=== PATIENT | female | born 1935 | race Caucasian/White ===

== ENCOUNTER 2019-08-26 22:00 | Inpatient (IN) ==
--- NOTE | 2019-08-26 23:03 | DR.GENAD ---
HPI Time Seen Time Seen by Provider: 08/26/19 22:50 PCP Primary Care Physician: Ryan HPI Comment HPI Comment: 83 y/o w/multiple med problems including copd and chf with worsening sob over several weeks as well as swelling in both legs; normally able to ambulate to her wheelchair but tonight started having problems lifting her feet and cannot seem to stand on them at this time; she has home oxygen but does not wear it all the time; she denies cp/palpitations/wheezing/fever and chills; also with constipation x 3-4 days; she was trying to have a bm and fell after getting up from toilet; no abd pain, nausea or vomiting Nurses notes reviewed Nurses Notes Review: Yes PMH PMH Past Surgical History: Yes ROS Review of Systems Constitutional: See HPI and Weakness Eyes: No Symptoms Reported ENTM: No Symptoms Reported Respiratoy: See HPI and Short of Breath Cardiovascular: See HPI and Edema Gastrointestinal/Abdominal: No Symptoms Reported Genitourinary: No Symptoms Reported Neurological: No Symptoms Reported Musculoskeletal: Joint Pain, Joint Swelling and Leg Integumentary: Change in Color (bilateral shins) Hematologic/Lymphatic: No Symptoms Reported (no blood clots) Endocrine: No Symptoms Reported Psychiatric: No Symptoms Reported PE Vital Signs Vitals: Temperature 97.8 F Pulse Rate 90 Respiratory Rate 20 Blood Pressure 158/93 O2 Sat by Pulse Oximetry 91 General Limitations: No Limitations General Appearance: Alert Head Head Exam: Normal Inspection and Atraumatic Eyes Eye exam: Normal Appearance and PERRL ENT ENT Exam: Normal Exam Neck Neck Exam: Normal Inspection Chest Chest Inspection: Normal Inspection and Symmetric Chest Wall Rise Respiratory Respiratory Exam: Normal Lung Sounds Bilat Respiratory Exam: Bilateral: Clear to Auscultation Cardiovascular Cardiovascular Exam: Regular Rate and Normal Rhythm Abdominal Exam Abdominal Exam: Normal Inspection, Normal Bowel Sounds and Soft Extremities Extremities Exam: Edema (rt greater than lt) and Other (lower third of both shins hyperpigmented) Neurologic Neurological Exam: Alert and Oriented X3 Psychiatric Psychiatric Exam: Normal Affect and Normal Mood Skin Skin Exam: Erythema (lower third of shins) COURSE Consultation Consultation Comments: IMPRESSION: 1. No PTE identified. 2. Multifocal ground-glass opacities within bilateral upper lobes, lingula and left lower lobe consistent with developing infiltrates/pneumonitis. 3. Small right-sided pleural effusion. 4. Cardiomegaly. 5. An approximate 5 cm myelolipoma. ROR Labs Reviewed Laboratory Results Reviewed?: Yes Result Diagrams: 08/26/19 23:15 08/26/19 23:15 Laboratory: WBC 7.6 X10^3/uL (3.6-10.0) 08/26/19 23:15 RBC 4.24 X10^6/uL (3.5-5.4) 08/26/19 23:15 Hgb 10.2 g/dL (12.0-16.0) L 08/26/19 23:15 Hct 32.9 % (36.0-47.0) L 08/26/19 23:15 MCV 77.6 fL (80.0-100.0) L 08/26/19 23:15 MCH 24.0 pg (27.0-34.0) L 08/26/19 23:15 MCHC 30.9 g/dL (33.0-35.0) L 08/26/19 23:15 RDW 18.1 % (11.6-16.5) H 08/26/19 23:15 Plt Count 322 X10^3/uL (150.0-450.0) 08/26/19 23:15 Plt Count Comment Adequate (ADEQUATE) 08/26/19 23:15 MPV 8.5 fL (7.4-11.0) 08/26/19 23:15 Neut % (Auto) 79.8 % (42.0-75.0) H 08/26/19 23:15 Lymph % (Auto) 8.3 % (21.0-51.0) L 08/26/19 23:15 Wilkes % (Auto) 9.7 % (0.0-13.0) 08/26/19 23:15 Eos % (Auto) 0.7 % (0.9-2.9) L 08/26/19 23:15 Baso % (Auto) 1.5 % (0.2-1.0) H 08/26/19 23:15 Neut # (Auto) 6.0 x10^3/uL (2.2-4.8) H 08/26/19 23:15 Lymph # (Auto) 0.6 X10^3/uL (1.3-2.9) L 08/26/19 23:15 Wilkes # (Auto) 0.7 x10^3/uL (0.3-0.8) 08/26/19 23:15 Eos # (Auto) 0.1 x10^3/uL (0.0-0.2) 08/26/19 23:15 Baso # (Auto) 0.1 X10^3/uL (0.0-0.1) 08/26/19 23:15 Absolute Nucleated RBC 0.3 /100WBC 08/26/19 23:15 Plt Morphology Comment Normal (NORMAL) 08/26/19 23:15 RBC Morphology Normal (NORMAL) 08/26/19 23:15 D-Dimer 833 ng/mL (0-400) H* 08/26/19 23:15 Sample Site Rr 08/26/19 22:57 ABG pH 7.440 (7.35-7.45) 08/26/19 22:57 ABG pCO2 45.0 mmHg (35.0-45.0) 08/26/19 22:57 ABG pO2 57.0 mmHg (80.0-100.0) L 08/26/19 22:57 ABG HCO3 30.6 mmol/L (22-26) H* 08/26/19 22:57 ABG O2 Saturation 90.0 % (90-100) 08/26/19 22:57 ABG Base Excess 5.6 mmol/L (-2.0-2.0) H 08/26/19 22:57 Dennis Test P 08/26/19 22:57 A-a Gradient 86.0 mmHg 08/26/19 22:57 FiO2 28.0 08/26/19 22:57 Blood Gas Comments Mirtha well 08/26/19 22:57 Sodium 145 mmol/L (136-145) 08/26/19 23:15 Corrected Sodium 146 mmol/L (136-145) H 08/26/19 23:15 Potassium 3.5 mmol/L (3.5-5.1) 08/26/19 23:15 Chloride 106 mmol/L (98-107) 08/26/19 23:15 Carbon Dioxide 29.7 mmol/L (21-32) 08/26/19 23:15 BUN 21 mg/dL (7-18) H 08/26/19 23:15 Creatinine 0.89 mg/dL (0.55-1.02) 08/26/19 23:15 Est GFR (MDRD) Af Amer > 60 (>60) 08/26/19 23:15 Est GFR (MDRD) Non-Af > 60 (>60) 08/26/19 23:15 Glucose 122 mg/dL (65-99) H 08/26/19 23:15 Calcium 8.8 mg/dL (8.5-10.1) 08/26/19 23:15 Corrected Calcium 9.5 mg/dL (8.5-10.1) 08/26/19 23:15 Total Bilirubin 0.40 mg/dL (0.2-1.0) 08/26/19 23:15 AST 21 Units/L (15-37) 08/26/19 23:15 ALT 19 Units/L (12-78) 08/26/19 23:15 Alkaline Phosphatase 109 Units/L (46-116) 08/26/19 23:15 Creatine Kinase 37 Units/L (26-192) 08/26/19 23:15 CK-MB (CK-2) < 1.0 ng/mL (0-4.0) 08/26/19 23:15 CK/CKMB % Calc 2.7 % (<4) 08/26/19 23:15 Troponin I < 0.02 ng/mL (0-1.5) 08/26/19 23:15 Total Protein 6.3 g/dL (6.4-8.2) L 08/26/19 23:15 Albumin 3.1 g/dL (3.4-5.0) L 08/26/19 23:15 Globulin 3.2 g/dL (2.5-4.5) 08/26/19 23:15 Albumin/Globulin Ratio 1.0 Ratio (1.1-2.1) L 08/26/19 23:15 Other Results Comments: Impression: Cardiomegaly with chronic interstitial lung changes along with low lung volume loss and scarring within the right upper lobe suspicious for fibrosis and or sequela prior partial lobectomy for which clinical correlation is needed. Small right-sided pleural effusion and/or scarring. IMPRESSION: 1. Negative for bilateral lower extremity DVT. [id number] 1935 Sex: F Location: ER Order Number(s): [id number] Procedure(s):CTA, CHEST Ordering Physician: Enma Burleson Primary Care: Rex Davis Service Date: 08/27/19 Service Time: 22 CTA chest with contrast per pulmonary embolism protocol Indication: Leg swelling Comparison: None available Technique: Multiple axial images of the chest were obtained from the thoracic inlet to the upper abdomen after the administration of IV contrast.Coronal and Sagittal MIP images were also provided. Dose reduction techniques including automated exposure control (AEC) and adjustment of mA and kV were utilized. Findings: No central or segmental pulmonary arterial filling defect is identified. There is normal caliber of the pulmonary artery without CT evidence or right heart strain. Heart size is enlarged with moderate dilatation of the right atrium and ventricle. Mild calcified atherosclerotic disease of coronary arteries. The thoracic aorta is normal in caliber and configuration. No enlarged mediastinal or hilar lymphadenopathy. Shotty paratracheal lymph nodes are noted. Ground-glass opacities within bilateral upper lobes, lingula and left lower lobe. There is a small right-sided pleural effusion. Central airways are clear. No pulmonary nodule or mass Moderate amount of free fluid within the abdomen. There is a fat containing lesion within the left adrenal gland consistent with a myelolipoma measuring approximately 5 cm. No acute osseous abnormality. IMPRESSION: 1. No PTE identified. 2. Multifocal ground-glass opacities within bilateral upper lobes, lingula and left lower lobe consistent with developing infiltrates/pneumonitis. 3. Small right-sided pleural effusion. 4. Cardiomegaly. 5. An approximate 5 cm myelolipoma. XRAY XRAY Interpreted by: Radiologist Opioid Opioid Risk Tool Age ([place] if 16-45): No History of Preadolescent Sexual Abuse: No Total: 0 Total Score Risk Category: Low Risk Copyright: [facility] predicting aberrant behaviors Diagnosis Discharge Problem: Hypoxia, Leg edema CHF exacerbation Qualifiers: Heart failure type: unspecified Qualified Code(s): I50.9 - Heart failure, unspecified Dyspnea Qualifiers: Dyspnea type: shortness of breath Qualified Code(s): R06.02 - Shortness of breath Instructions Instructions: Shortness of Breath, Adult, [id number] Heart Failure Forms: Excuse From Work Patient Portal
[2019-08-26 23:12] LABS: ABG BASE EXCESS 5.6 mmol/L (-2.0-2.0)
[2019-08-26 23:13] LABS: ABG ALLEN TEST P; ABG HCO3 30.6 mmol/L (22-26)
[2019-08-26 23:30] LABS: BASOPHILS # (AUTO) 0.1 X10^3/uL (0.0-0.1); BASOPHILS % (AUTO) 1.5 % (0.2-1.0); EOSINOPHILS # (AUTO) 0.1 x10^3/uL (0.0-0.2); EOSINOPHILS % (AUTO) 0.7 % (0.9-2.9); HEMATOCRIT 32.9 % (36.0-47.0); HEMOGLOBIN 10.2 g/dL (12.0-16.0); LYMPHOCYTES # (AUTO) 0.6 X10^3/uL (1.3-2.9); LYMPHOCYTES % (AUTO) 8.3 % (21.0-51.0); MEAN CORPUSCULAR HGB CONC 30.9 g/dL (33.0-35.0); MEAN CORPUSCULAR VOLUME 77.6 fL (80.0-100.0); MEAN PLATELET VOLUME 8.5 fL (7.4-11.0); MONOCYTES # (AUTO) 0.7 x10^3/uL (0.3-0.8); MONOCYTES % (AUTO) 9.7 % (0.0-13.0); NEUTROPHILS % (AUTO) 79.8 % (42.0-75.0); PLATELET COUNT 322 X10^3/uL (150.0-450.0); RED BLOOD COUNT 4.24 X10^6/uL (3.5-5.4); RED CELL DISTRIBUTION WIDTH 18.1 % (11.6-16.5); WHITE BLOOD COUNT 7.6 X10^3/uL (3.6-10.0)
[2019-08-26 23:37] LABS: PLATELET MORPHOLOGY COMMENT NORMAL (NORMAL)
[2019-08-26 23:45] LABS: BLOOD UREA NITROGEN 21 mg/dL (7-18); CALCIUM 8.8 mg/dL (8.5-10.1); CARBON DIOXIDE 29.7 mmol/L (21-32); CHLORIDE 106 mmol/L (98-107); COR NA(FOR HYPERGLY) 146 mmol/L (136-145); CREATININE 0.89 mg/dL (0.55-1.02); SODIUM 145 mmol/L (136-145); TROPONIN I < 0.02 ng/mL (0-1.5); eGFR NON BLACK RACES > 60 (>60)
[2019-08-26 23:49] LABS: ALANINE AMINOTRANSFERASE 19 Units/L (12-78); ALBUMIN 3.1 g/dL (3.4-5.0); ALKALINE PHOSPHATASE 109 Units/L (46-116); ASPARTATE AMINO TRANSFERASE 21 Units/L (15-37); CKMB % 2.7 % (<4); COR CA(FOR HYPOALB) 9.5 mg/dL (8.5-10.1); CREATINE KINASE 37 Units/L (26-192); CREATINE KINASE MB < 1.0 ng/mL (0-4.0); TOTAL PROTEIN 6.3 g/dL (6.4-8.2)
[2019-08-27] MEDS ORDERED: LASIX IVP ONE ×2 (00:27→00:33)
--- NOTE | 2019-08-27 00:28 | VAS ---
Lower extremity doppler sonogram Indication:Leg pain Comparison: None available TECHNIQUE: Multiple mccall scale and color flow Doppler images of the deep venous system were obtained of the right and left lower extremity. FINDINGS: The deep venous system of the right and left lower extremities were evaluated from the level of the common femoral vein through the popliteal vein. Normal color flow and augmentation can be observed. In addition, normal compression is seen throughout the deep venous system. IMPRESSION: 1. Negative for bilateral lower extremity DVT. Reported By:
--- NOTE | 2019-08-27 00:35 | RAD ---
AP Chest Indication: Fall with buttock pain and bilateral lower extremity swelling Comparison:None available Findings: The trachea is midline. Heart size is enlarged. Chronic interstitial lung changes are noted. There is scarring and volume loss within the right upper lobe suggesting pulmonary fibrosis and or prior partial lobectomy changes. There is scarring of the right minor fissure. Small right-sided pleural effusion and or pleural parenchymal scarring. No acute osseous abnormality. Impression: Cardiomegaly with chronic interstitial lung changes along with low lung volume loss and scarring within the right upper lobe suspicious for fibrosis and or sequela prior partial lobectomy for which clinical correlation is needed. Small right-sided pleural effusion and/or scarring. Reported By:
--- NOTE | 2019-08-27 03:04 | CT ---
CTA chest with contrast per pulmonary embolism protocol Indication: Leg swelling Comparison: None available Technique: Multiple axial images of the chest were obtained from the thoracic inlet to the upper abdomen after the administration of IV contrast.Coronal and Sagittal MIP images were also provided. Dose reduction techniques including automated exposure control (AEC) and adjustment of mA and kV were utilized. Findings: No central or segmental pulmonary arterial filling defect is identified. There is normal caliber of the pulmonary artery without CT evidence or right heart strain. Heart size is enlarged with moderate dilatation of the right atrium and ventricle. Mild calcified atherosclerotic disease of coronary arteries. The thoracic aorta is normal in caliber and configuration. No enlarged mediastinal or hilar lymphadenopathy. Shotty paratracheal lymph nodes are noted. Ground-glass opacities within bilateral upper lobes, lingula and left lower lobe. There is a small right-sided pleural effusion. Central airways are clear. No pulmonary nodule or mass Moderate amount of free fluid within the abdomen. There is a fat containing lesion within the left adrenal gland consistent with a myelolipoma measuring approximately 5 cm. No acute osseous abnormality. IMPRESSION: 1. No PTE identified. 2. Multifocal ground-glass opacities within bilateral upper lobes, lingula and left lower lobe consistent with developing infiltrates/pneumonitis. 3. Small right-sided pleural effusion. 4. Cardiomegaly. 5. An approximate 5 cm myelolipoma. Reported By:
[2019-08-27] MEDS ORDERED: TYLENOL 325 MG TAB PO PRN (05:00)
[2019-08-27] MEDS ORDERED: ZOFRAN TAB 4 MG PO PRN (05:00)
[2019-08-27 06:00] LABS: BASOPHILS # (AUTO) 0.1 X10^3/uL (0.0-0.1); BASOPHILS % (AUTO) 1.7 % (0.2-1.0); EOSINOPHILS # (AUTO) 0.1 x10^3/uL (0.0-0.2); EOSINOPHILS % (AUTO) 0.8 % (0.9-2.9); HEMATOCRIT 34.2 % (36.0-47.0); HEMOGLOBIN 10.7 g/dL (12.0-16.0); LYMPHOCYTES # (AUTO) 0.8 X10^3/uL (1.3-2.9); MEAN CORPUSCULAR HEMOGLOBIN 23.9 pg (27.0-34.0); MEAN CORPUSCULAR HGB CONC 31.3 g/dL (33.0-35.0); MEAN CORPUSCULAR VOLUME 76.5 fL (80.0-100.0); MEAN PLATELET VOLUME 8.1 fL (7.4-11.0); MONOCYTES # (AUTO) 0.9 x10^3/uL (0.3-0.8); MONOCYTES % (AUTO) 11.5 % (0.0-13.0); NEUTROPHILS # (AUTO) 5.7 x10^3/uL (2.2-4.8); PLATELET COUNT 314 X10^3/uL (150.0-450.0); RED BLOOD COUNT 4.47 X10^6/uL (3.5-5.4); RED CELL DISTRIBUTION WIDTH 18.1 % (11.6-16.5); WHITE BLOOD COUNT 7.6 X10^3/uL (3.6-10.0)
[2019-08-27 06:13] VITALS: BMI 43.5
[2019-08-27 06:17] LABS: ALANINE AMINOTRANSFERASE 19 Units/L (12-78); ALBUMIN 3.3 g/dL (3.4-5.0); ALKALINE PHOSPHATASE 118 Units/L (46-116); ASPARTATE AMINO TRANSFERASE 28 Units/L (15-37); BLOOD UREA NITROGEN 17 mg/dL (7-18); CALCIUM 9.1 mg/dL (8.5-10.1); CARBON DIOXIDE 33.1 mmol/L (21-32); CHLORIDE 104 mmol/L (98-107); CKMB % 2.3 % (<4); COR CA(FOR HYPOALB) 9.7 mg/dL (8.5-10.1); COR NA(FOR HYPERGLY) 146 mmol/L (136-145); CREATINE KINASE 62 Units/L (26-192); CREATINE KINASE MB 1.4 ng/mL (0-4.0); CREATININE 0.97 mg/dL (0.55-1.02); SODIUM 145 mmol/L (136-145); TOTAL PROTEIN 6.8 g/dL (6.4-8.2); TROPONIN I < 0.02 ng/mL (0-1.5); eGFR NON BLACK RACES 59 (>60)
[2019-08-27 06:22] LABS: HYPOCHROMASIA 1+; PLATELET MORPHOLOGY COMMENT NORMAL (NORMAL)
[2019-08-27] MEDS ORDERED: POTASSIUM CHLORIDE LIQ 20 MEQ UDC PO PRN (07:13)
[2019-08-27] MEDS ORDERED: K-RIDER 10 MEQ/NS 100 ML 10 MEQ/100 ML BAG IV PRN (07:13)
[2019-08-27] MEDS ORDERED: KLOR-CON PO PRN (07:13)
[2019-08-27] MEDS ORDERED: POTASSIUM CHL 40 MEQ/NS 0.45% 500 ML IV PRN (07:13)
[2019-08-27] MEDS ORDERED: MICRO K EXTEN CAP 10 MEQ PO PRN (07:13)
[2019-08-27] MEDS ORDERED: POTASSIUM CHL 60 MEQ/NS 0.45% 500 ML IV PRN (07:13)
[2019-08-27] MEDS ORDERED: MILK OF MAGNESIA PO PRN (09:04)
[2019-08-27] MEDS ORDERED: COLACE CAP 100 MG PO PRN (09:04)
[2019-08-27] MEDS: LASIX IVP SCH (09:27)
[2019-08-27] MEDS: NYSTATIN POWDER TOP SCH ×2 (09:43→21:18)
[2019-08-27] MEDS: K-DUR TAB 20 MEQ PO PRN ×3 (09:43→15:19)
[2019-08-27] MEDS: MAGNESIUM SULFATE 1 GRAM/100 mL PREMIX 1 GM/100 ML BAG IV PRN ×2 (09:46→10:43)
[2019-08-27 11:51] LABS: BILIRUBIN,URINE NEGATIVE (NEGATIVE); BLOOD/HEMOGLOBIN,URINE NEGATIVE (NEGATIVE); GLUCOSE, URINE NEGATIVE (NEGATIVE); KETONES,URINE NEGATIVE (NEGATIVE); LEUKOCYTE ESTERASE ,URINE NEGATIVE (NEGATIVE); NITRITES,URINE NEGATIVE (NEGATIVE); PROTEIN,URINE NEGATIVE (NEGATIVE); UROBILINOGEN,URINE NORMAL (NORMAL)
[2019-08-27 11:52] LABS: APPEARANCE,URINE CLEAR (CLEAR); COLOR,URINE PALE YELLOW (YELLOW)
[2019-08-27] MEDS: LOVENOX INJ 40 MG SYR SC SCH (12:03)
[2019-08-27 12:14] LABS: CKMB % 2.2 % (<4); CREATINE KINASE 88 Units/L (26-192); CREATINE KINASE MB 1.9 ng/mL (0-4.0); TROPONIN I < 0.02 ng/mL (0-1.5)
[2019-08-27] MEDS ORDERED: LEVAQUIN PREMIX IV 750 MG 750 MG/150 ML BAG IV SCH (13:00)
[2019-08-27 13:38] LABS: BASOPHILS # (AUTO) 0.1 X10^3/uL (0.0-0.1); BASOPHILS % (AUTO) 1.1 % (0.2-1.0); EOSINOPHILS # (AUTO) 0.1 x10^3/uL (0.0-0.2); EOSINOPHILS % (AUTO) 0.6 % (0.9-2.9); HEMATOCRIT 34.8 % (36.0-47.0); HEMOGLOBIN 10.7 g/dL (12.0-16.0); LYMPHOCYTES # (AUTO) 0.7 X10^3/uL (1.3-2.9); LYMPHOCYTES % (AUTO) 8.6 % (21.0-51.0); MEAN CORPUSCULAR HEMOGLOBIN 23.7 pg (27.0-34.0); MEAN CORPUSCULAR HGB CONC 30.8 g/dL (33.0-35.0); MEAN CORPUSCULAR VOLUME 77.1 fL (80.0-100.0); MEAN PLATELET VOLUME 8.2 fL (7.4-11.0); MONOCYTES # (AUTO) 0.8 x10^3/uL (0.3-0.8); MONOCYTES % (AUTO) 9.3 % (0.0-13.0); NEUTROPHILS # (AUTO) 6.8 x10^3/uL (2.2-4.8); NEUTROPHILS % (AUTO) 80.4 % (42.0-75.0); PLATELET COUNT 396 X10^3/uL (150.0-450.0); RED BLOOD COUNT 4.51 X10^6/uL (3.5-5.4); WHITE BLOOD COUNT 8.5 X10^3/uL (3.6-10.0)
[2019-08-27 13:48] LABS: ALANINE AMINOTRANSFERASE 27 Units/L (12-78); ALBUMIN 3.4 g/dL (3.4-5.0); ALKALINE PHOSPHATASE 128 Units/L (46-116); ASPARTATE AMINO TRANSFERASE 28 Units/L (15-37); BLOOD UREA NITROGEN 16 mg/dL (7-18); CALCIUM 9.1 mg/dL (8.5-10.1); CARBON DIOXIDE 35.6 mmol/L (21-32); CHLORIDE 104 mmol/L (98-107); COR NA(FOR HYPERGLY) 145 mmol/L (136-145); SODIUM 145 mmol/L (136-145); TOTAL PROTEIN 6.9 g/dL (6.4-8.2); eGFR NON BLACK RACES 51 (>60)
[2019-08-27] MEDS ORDERED: NS 500 ML IV 500 ML IV ONE (13:50)
[2019-08-27 13:54] LABS: PLATELET MORPHOLOGY COMMENT NORMAL (NORMAL)
[2019-08-27 13:55] LABS: HYPOCHROMASIA SLIGHT
[2019-08-27] MEDS: NS 500 ML IV 500 ML IV PRN (14:01)
[2019-08-27] MEDS: SOLU-Medrol 125 MG VIAL IVP SCH ×2 (14:26→21:19)
[2019-08-27 14:59] LABS: ABG BASE EXCESS 10.7 mmol/L (-2.0-2.0)
[2019-08-27 15:01] LABS: ABG HCO3 35.7 mmol/L (22-26)
[2019-08-27] MEDS: ZOSYN VIAL 3.375 GRAMS 3.375 G in NS 100 ML IV + SPIKE MINIBAG* 100 ML IV SCH ×2 (15:37→21:20)
[2019-08-27] MEDS ORDERED: SALINE 3% 15 ML NEB TX NEB ONE (17:07)
[2019-08-28] MEDS: ZOSYN VIAL 3.375 GRAMS 3.375 G in NS 100 ML IV + SPIKE MINIBAG* 100 ML IV SCH ×3 (05:56→21:00)
[2019-08-28] MEDS: SOLU-Medrol 125 MG VIAL IVP SCH ×3 (05:57→21:00)
[2019-08-28 06:13] LABS: BASOPHILS % (AUTO) 0.2 % (0.2-1.0); HEMATOCRIT 30.8 % (36.0-47.0); HEMOGLOBIN 9.6 g/dL (12.0-16.0); LYMPHOCYTES # (AUTO) 0.3 X10^3/uL (1.3-2.9); LYMPHOCYTES % (AUTO) 5.9 % (21.0-51.0); MEAN CORPUSCULAR HEMOGLOBIN 24.5 pg (27.0-34.0); MEAN CORPUSCULAR HGB CONC 31.1 g/dL (33.0-35.0); MEAN CORPUSCULAR VOLUME 78.6 fL (80.0-100.0); MEAN PLATELET VOLUME 8.5 fL (7.4-11.0); MONOCYTES # (AUTO) 0.1 x10^3/uL (0.3-0.8); MONOCYTES % (AUTO) 1.4 % (0.0-13.0); NEUTROPHILS # (AUTO) 4.6 x10^3/uL (2.2-4.8); NEUTROPHILS % (AUTO) 92.5 % (42.0-75.0); PLATELET COUNT 313 X10^3/uL (150.0-450.0); RED BLOOD COUNT 3.91 X10^6/uL (3.5-5.4); RED CELL DISTRIBUTION WIDTH 17.6 % (11.6-16.5); WHITE BLOOD COUNT 4.9 X10^3/uL (3.6-10.0)
[2019-08-28 06:27] LABS: ALANINE AMINOTRANSFERASE 23 Units/L (12-78); ALKALINE PHOSPHATASE 106 Units/L (46-116); ASPARTATE AMINO TRANSFERASE 26 Units/L (15-37); BLOOD UREA NITROGEN 14 mg/dL (7-18); CHLORIDE 106 mmol/L (98-107); COR CA(FOR HYPOALB) 9.8 mg/dL (8.5-10.1); COR NA(FOR HYPERGLY) 145 mmol/L (136-145); CREATININE 0.79 mg/dL (0.55-1.02); SODIUM 143 mmol/L (136-145); TOTAL PROTEIN 6.2 g/dL (6.4-8.2); eGFR NON BLACK RACES > 60 (>60)
[2019-08-28 06:53] LABS: PLATELET MORPHOLOGY COMMENT NORMAL (NORMAL)
[2019-08-28 06:54] LABS: ANISOCYTOSIS SLIGHT; HYPOCHROMASIA SLIGHT
--- NOTE | 2019-08-28 08:05 | RAD ---
HISTORY: Shortness breath.Study: Portable chest.Comparison: Chest x-ray dated August 27, 2019. Findings:The patient is rotated. The cardiac silhouette is stably enlarged without overt signs of failure. Chronic emphysematous changes. No obvious focal consolidation, pleural effusion, or pneumothorax. The bony thorax is unremarkable. IMPRESSION: No significant change.Reported By:
[2019-08-28] MEDS: LOVENOX INJ 40 MG SYR SC SCH (08:18)
[2019-08-28] MEDS: LASIX IVP SCH (08:19)
[2019-08-28] MEDS: NYSTATIN POWDER TOP SCH ×2 (08:19→21:00)
[2019-08-28] MEDS ORDERED: XANAX PO PRN (11:59)
--- NOTE | 2019-08-28 12:16 | PCM.PROG ---
Progress Note Progress Note for Day of Date of Exam: 08/28/19 Subjective Subjective: Patient seen at bedside, reports still having SOB. She is admitted for acute exacerbation of CHF and pneumonitis. She states Berny has been helping with her leg edema. She is currently on 2L oxygen, sats in 90s. Past Medical Family Social History Past Med/Fam/Surg Hx: No changes since H&P Allergies: Allergies ibuprofen Allergy (Verified 08/26/19 22:47) Review of Systems ROS: No change since H&P Vital Signs and I&O's Vital Signs: Temperature 98.2 F Pulse Rate [Left Brachial] 118 Pulse Rate 97 Respiratory Rate 26 Blood Pressure [Left Arm] 132/79 Blood Pressure [Right Arm] 126/65 Blood Pressure 126/65 O2 Sat by Pulse Oximetry 91 Intake and Output: Intake & Output 08/25/19 08/26/19 08/27/19 08/28/19 23:59 23:59 23:59 23:59 Intake Total 1501 / 1501 565 / 565 Output Total 1800 / 1800 400 / 400 Balance -299 / -299 165 / 165 Physical Exam Oriented: Normal Eyes: Normal Respiratory: Generalized and Rales Cardiovascular: Normal and Edema (b/l LE edema ) Auscultation: Bowel Sounds: Normal Palpation: Other (abdominal distension due to edema ) Tenderness: Normal Skin: Normal Musculoskeletal: Normal Mood Description: Calm Affect: Normal Speech Pattern: Clear and Appropriate Laboratory and Diagnostics Result Diagrams: 08/28/19 05:15 08/28/19 05:15 Labs: Laboratory WBC 4.9 X10^3/uL (3.6-10.0) 08/28/19 05:15 RBC 3.91 X10^6/uL (3.5-5.4) 08/28/19 05:15 Hgb 9.6 g/dL (12.0-16.0) L 08/28/19 05:15 Hct 30.8 % (36.0-47.0) L 08/28/19 05:15 MCV 78.6 fL (80.0-100.0) L 08/28/19 05:15 MCH 24.5 pg (27.0-34.0) L 08/28/19 05:15 MCHC 31.1 g/dL (33.0-35.0) L 08/28/19 05:15 RDW 17.6 % (11.6-16.5) H 08/28/19 05:15 Plt Count 313 X10^3/uL (150.0-450.0) 08/28/19 05:15 Plt Count Comment Adequate (ADEQUATE) 08/28/19 05:15 MPV 8.5 fL (7.4-11.0) 08/28/19 05:15 Neut % (Auto) 92.5 % (42.0-75.0) H 08/28/19 05:15 Lymph % (Auto) 5.9 % (21.0-51.0) L 08/28/19 05:15 Flagler % (Auto) 1.4 % (0.0-13.0) 08/28/19 05:15 Eos % (Auto) 0.0 % (0.9-2.9) L 08/28/19 05:15 Baso % (Auto) 0.2 % (0.2-1.0) 08/28/19 05:15 Neut # (Auto) 4.6 x10^3/uL (2.2-4.8) 08/28/19 05:15 Lymph # (Auto) 0.3 X10^3/uL (1.3-2.9) L 08/28/19 05:15 [place] # (Auto) 0.1 x10^3/uL (0.3-0.8) L 08/28/19 05:15 Eos # (Auto) 0.0 x10^3/uL (0.0-0.2) 08/28/19 05:15 Baso # (Auto) 0.0 X10^3/uL (0.0-0.1) 08/28/19 05:15 Absolute Nucleated RBC 0.3 /100WBC 08/28/19 05:15 Total Counted 100 08/28/19 05:15 Neutrophils % (Manual) 94 % (39-76) H 08/28/19 05:15 Lymphocytes % (Manual) 4 % (13-43) L 08/28/19 05:15 Monocytes % (Manual) 2 % (4-9) L 08/28/19 05:15 Plt Morphology Comment Normal (NORMAL) 08/28/19 05:15 RBC Morphology Abnormal (NORMAL) A 08/28/19 05:15 Hypochromasia Slight A 08/28/19 05:15 Anisocytosis Slight A 08/28/19 05:15 ESR 6 MM/HOUR (0-20) 08/27/19 13:10 D-Dimer 833 ng/mL (0-400) H* 08/26/19 23:15 Sample Site Right brachial 08/27/19 14:52 ABG pH 7.480 (7.35-7.45) H 08/27/19 14:52 ABG pCO2 48.0 mmHg (35.0-45.0) H 08/27/19 14:52 ABG pO2 75.0 mmHg (80.0-100.0) L 08/27/19 14:52 ABG HCO3 35.7 mmol/L (22-26) H* 08/27/19 14:52 ABG O2 Saturation 96.0 % (90-100) 08/27/19 14:52 ABG Base Excess 10.7 mmol/L (-2.0-2.0) H 08/27/19 14:52 Dennis Test Na 08/27/19 14:52 A-a Gradient 65.0 mmHg 08/27/19 14:52 FiO2 28.0 08/27/19 14:52 Blood Gas Comments Mirtha well aw 08/27/19 14:52 Sodium 143 mmol/L (136-145) 08/28/19 05:15 Corrected Sodium 145 mmol/L (136-145) 08/28/19 05:15 Potassium 4.1 mmol/L (3.5-5.1) 08/28/19 05:15 Chloride 106 mmol/L (98-107) 08/28/19 05:15 Carbon Dioxide 32.0 mmol/L (21-32) 08/28/19 05:15 BUN 14 mg/dL (7-18) 08/28/19 05:15 Creatinine 0.79 mg/dL (0.55-1.02) 08/28/19 05:15 Est GFR (MDRD) Af Amer > 60 (>60) 08/28/19 05:15 Est GFR (MDRD) Non-Af > 60 (>60) 08/28/19 05:15 Glucose 186 mg/dL (65-99) H 08/28/19 05:15 POC Glucose (mg/dL) 225 mg/dL (65-99) H 08/28/19 11:49 Calcium 9.0 mg/dL (8.5-10.1) 08/28/19 05:15 Corrected Calcium 9.8 mg/dL (8.5-10.1) 08/28/19 05:15 Magnesium 1.8 mg/dL (1.7-2.9) 08/28/19 05:15 Total Bilirubin 0.50 mg/dL (0.2-1.0) 08/28/19 05:15 AST 26 Units/L (15-37) 08/28/19 05:15 ALT 23 Units/L (12-78) 08/28/19 05:15 Alkaline Phosphatase 106 Units/L (46-116) 08/28/19 05:15 Creatine Kinase 88 Units/L (26-192) 08/27/19 11:36 CK-MB (CK-2) 1.9 ng/mL (0-4.0) 08/27/19 11:36 CK/CKMB % Calc 2.2 % (<4) 08/27/19 11:36 Troponin I < 0.02 ng/mL (0-1.5) 08/27/19 11:36 B-Natriuretic Peptide 796 pg/mL (0-79) H* 08/27/19 13:10 Total Protein 6.2 g/dL (6.4-8.2) L 08/28/19 05:15 Albumin 3.0 g/dL (3.4-5.0) L 08/28/19 05:15 Globulin 3.2 g/dL (2.5-4.5) 08/28/19 05:15 Albumin/Globulin Ratio 0.9 Ratio (1.1-2.1) L 08/28/19 05:15 Specimen Type Clean catch urine 08/27/19 11:24 Urine Color Pale yellow (YELLOW) 08/27/19 11:24 Urine Appearance Clear (CLEAR) 08/27/19 11:24 Urine pH 7.0 (5.0 - 8.0) 08/27/19 11:24 Ur Specific Udell 1.015 (1.000-1.030) 08/27/19 11:24 Urine Protein Negative (NEGATIVE) 08/27/19 11:24 Urine Glucose (UA) Negative (NEGATIVE) 08/27/19 11:24 Urine Ketones Negative (NEGATIVE) 08/27/19 11:24 Urine Occult Blood Negative (NEGATIVE) 08/27/19 11:24 Urine Nitrite Negative (NEGATIVE) 08/27/19 11:24 Urine Bilirubin Negative (NEGATIVE) 08/27/19 11:24 Urine Urobilinogen Normal (NORMAL) 08/27/19 11:24 Ur Leukocyte Esterase Negative (NEGATIVE) 08/27/19 11:24 Radiology Reviewed: Yes Plan (1) CHF exacerbation: Status: Acute Qualifiers: Heart failure type: unspecified Qualified Code(s): I50.9 - Heart failure, unspecified Plan: ECHO: mild LVH, decreased global wall motion, EF 33%, severe TR. Severe pulmonary HTN, dilated IVC. No prev echo to compare. Continue diuresis with Lasix IV, wean oxygen as tolerated Resume home medications: asa, statin, losartan, metoprolol succinate Strict I/Os (2) Dyspnea: Status: Acute Qualifiers: Dyspnea type: shortness of breath Qualified Code(s): R06.02 - Shortness of breath; R06.00 - Dyspnea, unspecified; R06.01 - Orthopnea Plan: due to CHF exacerbation and pneumonitis D-dimer elevated, CT negative for PE. (3) Leg edema: Status: Acute Plan: improving, Doppler negative for DVT. Continue diuresis (4) Pneumonitis: Status: Acute Narrative Support Text: CT chest: Multifocal ground-glass opacities within bilateral upper lobes, lingula and left lower lobe consistent with developing infiltrates/pneumonitis. Plan: currently on Levaquin and Zosyn. EKG showing prolonged QTC, will DC Levaquin and switch to doxycycline for atypical coverage. Continue solumedrol, duonebs. (5) Atrial fibrillation: Status: Acute Qualifiers: Atrial fibrillation type: unspecified Qualified Code(s): I48.91 - Unspecified atrial fibrillation Plan: resume home meds: Amiodarone, metoprolol succinate, eliquis (6) Hypertension: Status: Acute Qualifiers: Hypertension type: essential hypertension Qualified Code(s): I10 - Essential (primary) hypertension Plan: resume home medications (7) Prolonged QT interval: Status: Acute Plan: DC levaquin, repeat EKG in the AM (8) Anemia: Status: Acute Qualifiers: Anemia type: unspecified type Qualified Code(s): D64.9 - Anemia, unspecified (9) Moderate to severe pulmonary hypertension: Status: Acute
[2019-08-28] MEDS: ASPIRIN PO SCH (13:24)
[2019-08-28] MEDS: CORDARONE TAB 200 MG PO SCH (13:25)
[2019-08-28] MEDS: ELIQUIS PO SCH ×2 (13:25→21:00)
[2019-08-28] MEDS: NORCO 10/325 TAB PO PRN ×2 (13:27→21:00)
[2019-08-28] MEDS: TOPROL XL PO SCH ×2 (13:27→21:00)
[2019-08-28] MEDS: ZOCOR TAB 40 MG PO SCH (21:00)
[2019-08-28] MEDS: VIBRAMYCIN PO SCH (21:00)
[2019-08-28] MEDS: COZAAR PO SCH (21:00)
[2019-08-28] MEDS: HumuLIN R SUBCUT PRN (21:30)
[2019-08-29] MEDS: SOLU-Medrol 125 MG VIAL IVP SCH ×3 (05:52→21:02)
[2019-08-29] MEDS: ZOSYN VIAL 3.375 GRAMS 3.375 G in NS 100 ML IV + SPIKE MINIBAG* 100 ML IV SCH ×3 (06:15→21:03)
[2019-08-29 06:36] LABS: BASOPHILS % (AUTO) 0.5 % (0.2-1.0); HEMOGLOBIN 9.4 g/dL (12.0-16.0); LYMPHOCYTES # (AUTO) 0.4 X10^3/uL (1.3-2.9); MEAN CORPUSCULAR HEMOGLOBIN 24.1 pg (27.0-34.0); MEAN CORPUSCULAR HGB CONC 31.3 g/dL (33.0-35.0); MEAN CORPUSCULAR VOLUME 77.1 fL (80.0-100.0); MEAN PLATELET VOLUME 8.7 fL (7.4-11.0); MONOCYTES # (AUTO) 0.3 x10^3/uL (0.3-0.8); MONOCYTES % (AUTO) 3.5 % (0.0-13.0); NEUTROPHILS # (AUTO) 8.5 x10^3/uL (2.2-4.8); PLATELET COUNT 359 X10^3/uL (150.0-450.0); RED BLOOD COUNT 3.89 X10^6/uL (3.5-5.4); RED CELL DISTRIBUTION WIDTH 17.7 % (11.6-16.5); WHITE BLOOD COUNT 9.2 X10^3/uL (3.6-10.0)
[2019-08-29 06:59] LABS: BAND NEUTROPHILS % 1 % (0-10); PLATELET MORPHOLOGY COMMENT NORMAL (NORMAL)
[2019-08-29 07:01] LABS: ANISOCYTOSIS SLIGHT; HYPOCHROMASIA SLIGHT
[2019-08-29 07:12] LABS: ALANINE AMINOTRANSFERASE 32 Units/L (12-78); ALKALINE PHOSPHATASE 94 Units/L (46-116); ASPARTATE AMINO TRANSFERASE 31 Units/L (15-37); BLOOD UREA NITROGEN 21 mg/dL (7-18); CALCIUM 9.1 mg/dL (8.5-10.1); CARBON DIOXIDE 34.2 mmol/L (21-32); CHLORIDE 106 mmol/L (98-107); COR CA(FOR HYPOALB) 9.9 mg/dL (8.5-10.1); COR NA(FOR HYPERGLY) 146 mmol/L (136-145); CREATININE 0.82 mg/dL (0.55-1.02); SODIUM 144 mmol/L (136-145); TOTAL PROTEIN 6.5 g/dL (6.4-8.2); eGFR NON BLACK RACES > 60 (>60)
[2019-08-29] MEDS: DEPAKOTE D.R. TAB PO SCH (08:47)
[2019-08-29] MEDS: PriLOSEC PO SCH (08:47)
[2019-08-29] MEDS: K-DUR TAB 20 MEQ PO PRN (08:47)
[2019-08-29] MEDS: TOPROL XL PO SCH ×2 (08:48→20:54)
[2019-08-29] MEDS: VIBRAMYCIN PO SCH ×2 (08:48→20:54)
[2019-08-29] MEDS: PROzac PO SCH (08:48)
[2019-08-29] MEDS: ASPIRIN PO SCH (08:48)
[2019-08-29] MEDS: ELIQUIS PO SCH ×2 (08:50→20:54)
[2019-08-29] MEDS: CORDARONE TAB 200 MG PO SCH (08:50)
[2019-08-29] MEDS: SINGULAIR TAB 10 MG PO SCH (08:50)
[2019-08-29] MEDS: NYSTATIN POWDER TOP SCH ×2 (08:51→20:55)
[2019-08-29] MEDS: LASIX IVP SCH (08:51)
[2019-08-29] MEDS: SYNTHROID 50 mcg TAB PO SCH (08:52)
[2019-08-29] MEDS ORDERED: LEVAQUIN PREMIX IV 750 MG 750 MG/150 ML BAG IV SCH (09:00)
--- NOTE | 2019-08-29 12:17 | PCM.PROG ---
Progress Note Progress Note for Day of Date of Exam: 08/29/19 Subjective Subjective: Patient seen at bedside, overnight sats dropped to low 80s as the patient did not have the canula in place, she was put on venti mask and then back on 3L nasal canula this AM. At bedside, she had the oxygen out and sats in the 70s with HR in 120s. Patient reported feeling dizzy. She has been urinating a lot with the Lasix, edema has improved. Past Medical Family Social History Past Med/Fam/Surg Hx: No changes since H&P Allergies: Allergies ibuprofen Allergy (Verified 08/26/19 22:47) Review of Systems ROS: No change since H&P Vital Signs and I&O's Vital Signs: Temperature 98.3 F Pulse Rate [Left Brachial] 105 Pulse Rate 97 Respiratory Rate 22 Blood Pressure [Left Arm] 124/74 Blood Pressure [Right Arm] 136/70 Blood Pressure 126/65 O2 Sat by Pulse Oximetry 91 Intake and Output: Intake & Output 08/26/19 08/27/19 08/28/19 08/29/19 23:59 23:59 23:59 23:59 Intake Total 1501 / 1501 1480 / 1480 380 / 380 Output Total 1800 / 1800 400 / 400 700 / 700 Balance -299 / -299 1080 / 1080 -320 / -320 Physical Exam Oriented: Normal Eyes: Normal Respiratory: Generalized and Rales Cardiovascular: Tachycardia and Edema (b/l LE edema improved ) Auscultation: Bowel Sounds: Normal Tenderness: Normal Skin: Normal Musculoskeletal: Normal Mood Description: Anxious Affect: Anxious Speech Pattern: Clear and Appropriate Laboratory and Diagnostics Result Diagrams: 08/29/19 06:18 08/29/19 06:18 Labs: 08/27/19 13:18 Blood Blood Culture - Preliminary 08/27/19 13:10 Blood Blood Culture - Preliminary Laboratory WBC 9.2 X10^3/uL (3.6-10.0) 08/29/19 06:18 RBC 3.89 X10^6/uL (3.5-5.4) 08/29/19 06:18 Hgb 9.4 g/dL (12.0-16.0) L 08/29/19 06:18 Hct 30.0 % (36.0-47.0) L 08/29/19 06:18 MCV 77.1 fL (80.0-100.0) L 08/29/19 06:18 MCH 24.1 pg (27.0-34.0) L 08/29/19 06:18 MCHC 31.3 g/dL (33.0-35.0) L 08/29/19 06:18 RDW 17.7 % (11.6-16.5) H 08/29/19 06:18 Plt Count 359 X10^3/uL (150.0-450.0) 08/29/19 06:18 Plt Count Comment Adequate (ADEQUATE) 08/29/19 06:18 MPV 8.7 fL (7.4-11.0) 08/29/19 06:18 Neut % (Auto) 92.0 % (42.0-75.0) H 08/29/19 06:18 Lymph % (Auto) 4.0 % (21.0-51.0) L 08/29/19 06:18 [place] % (Auto) 3.5 % (0.0-13.0) 08/29/19 06:18 Eos % (Auto) 0.0 % (0.9-2.9) L 08/29/19 06:18 Baso % (Auto) 0.5 % (0.2-1.0) 08/29/19 06:18 Neut # (Auto) 8.5 x10^3/uL (2.2-4.8) H 08/29/19 06:18 Lymph # (Auto) 0.4 X10^3/uL (1.3-2.9) L 08/29/19 06:18 [place] # (Auto) 0.3 x10^3/uL (0.3-0.8) 08/29/19 06:18 Eos # (Auto) 0.0 x10^3/uL (0.0-0.2) 08/29/19 06:18 Baso # (Auto) 0.0 X10^3/uL (0.0-0.1) 08/29/19 06:18 Absolute Nucleated RBC 0.4 /100WBC 08/29/19 06:18 Total Counted 100 08/29/19 06:18 Neutrophils % (Manual) 97 % (39-76) H 08/29/19 06:18 Band Neutrophils % 1 % (0-10) 08/29/19 06:18 Lymphocytes % (Manual) 2 % (13-43) L 08/29/19 06:18 Monocytes % (Manual) 2 % (4-9) L 08/28/19 05:15 Plt Morphology Comment Normal (NORMAL) 08/29/19 06:18 RBC Morphology Abnormal (NORMAL) A 08/29/19 06:18 Hypochromasia Slight A 08/29/19 06:18 Anisocytosis Slight A 08/29/19 06:18 ESR 6 MM/HOUR (0-20) 08/27/19 13:10 D-Dimer 833 ng/mL (0-400) H* 08/26/19 23:15 Sample Site Right brachial 08/27/19 14:52 ABG pH 7.480 (7.35-7.45) H 08/27/19 14:52 ABG pCO2 48.0 mmHg (35.0-45.0) H 08/27/19 14:52 ABG pO2 75.0 mmHg (80.0-100.0) L 08/27/19 14:52 ABG HCO3 35.7 mmol/L (22-26) H* 08/27/19 14:52 ABG O2 Saturation 96.0 % (90-100) 08/27/19 14:52 ABG Base Excess 10.7 mmol/L (-2.0-2.0) H 08/27/19 14:52 Dennis Test Na 08/27/19 14:52 A-a Gradient 65.0 mmHg 08/27/19 14:52 FiO2 28.0 08/27/19 14:52 Blood Gas Comments Mirtha well aw 08/27/19 14:52 Sodium 144 mmol/L (136-145) 08/29/19 06:18 Corrected Sodium 146 mmol/L (136-145) H 08/29/19 06:18 Potassium 3.8 mmol/L (3.5-5.1) 08/29/19 06:18 Chloride 106 mmol/L (98-107) 08/29/19 06:18 Carbon Dioxide 34.2 mmol/L (21-32) H 08/29/19 06:18 BUN 21 mg/dL (7-18) H 08/29/19 06:18 Creatinine 0.82 mg/dL (0.55-1.02) 08/29/19 06:18 Est GFR (MDRD) Af Amer > 60 (>60) 08/29/19 06:18 Est GFR (MDRD) Non-Af > 60 (>60) 08/29/19 06:18 Glucose 187 mg/dL (65-99) H 08/29/19 06:18 POC Glucose (mg/dL) 202 mg/dL (65-99) H 08/29/19 11:53 Calcium 9.1 mg/dL (8.5-10.1) 08/29/19 06:18 Corrected Calcium 9.9 mg/dL (8.5-10.1) 08/29/19 06:18 Magnesium 1.8 mg/dL (1.7-2.9) 08/28/19 05:15 Iron 14 ug/dL (50-175) L 08/29/19 06:18 Transferrin 338 mg/dL (202-364) 08/29/19 06:18 Ferritin 47 ng/mL (8-252) 08/29/19 06:18 Total Bilirubin 0.40 mg/dL (0.2-1.0) 08/29/19 06:18 AST 31 Units/L (15-37) 08/29/19 06:18 ALT 32 Units/L (12-78) 08/29/19 06:18 Alkaline Phosphatase 94 Units/L (46-116) 08/29/19 06:18 Creatine Kinase 88 Units/L (26-192) 08/27/19 11:36 CK-MB (CK-2) 1.9 ng/mL (0-4.0) 08/27/19 11:36 CK/CKMB % Calc 2.2 % (<4) 08/27/19 11:36 Troponin I < 0.02 ng/mL (0-1.5) 08/27/19 11:36 B-Natriuretic Peptide 796 pg/mL (0-79) H* 08/27/19 13:10 Total Protein 6.5 g/dL (6.4-8.2) 08/29/19 06:18 Albumin 3.0 g/dL (3.4-5.0) L 08/29/19 06:18 Globulin 3.5 g/dL (2.5-4.5) 08/29/19 06:18 Albumin/Globulin Ratio 0.9 Ratio (1.1-2.1) L 08/29/19 06:18 Vitamin B12 1090 pg/mL (193-986) H 08/29/19 06:18 Folate 7.4 ng/mL (>8.6) L 08/29/19 06:18 Specimen Type Clean catch urine 08/27/19 11:24 Urine Color Pale yellow (YELLOW) 08/27/19 11:24 Urine Appearance Clear (CLEAR) 08/27/19 11:24 Urine pH 7.0 (5.0 - 8.0) 08/27/19 11:24 Ur Specific [place] 1.015 (1.000-1.030) 08/27/19 11:24 Urine Protein Negative (NEGATIVE) 08/27/19 11:24 Urine Glucose (UA) Negative (NEGATIVE) 08/27/19 11:24 Urine Ketones Negative (NEGATIVE) 08/27/19 11:24 Urine Occult Blood Negative (NEGATIVE) 08/27/19 11:24 Urine Nitrite Negative (NEGATIVE) 08/27/19 11:24 Urine Bilirubin Negative (NEGATIVE) 08/27/19 11:24 Urine Urobilinogen Normal (NORMAL) 08/27/19 11:24 Ur Leukocyte Esterase Negative (NEGATIVE) 08/27/19 11:24 Plan (1) CHF exacerbation: Status: Acute Qualifiers: Heart failure type: unspecified Qualified Code(s): I50.9 - Heart failure, unspecified Plan: ECHO: mild LVH, decreased global wall motion, EF 33%, severe TR. Severe pulmonary HTN, dilated IVC. No prev echo to compare. Continue diuresis with Lasix IV, wean oxygen as tolerated Continue asa, statin, losartan, metoprolol succinate Strict I/Os Repeat CXR in the AM. (2) Dyspnea: Status: Acute Qualifiers: Dyspnea type: shortness of breath Qualified Code(s): R06.02 - Shortness of breath; R06.00 - Dyspnea, unspecified; R06.01 - Orthopnea Plan: due to CHF exacerbation and pneumonitis D-dimer elevated, CT negative for PE. (3) Leg edema: Status: Acute Plan: improving, Doppler negative for DVT. Continue diuresis (4) Pneumonitis: Status: Acute Plan: Continue doxycycline and Zosyn. Continue solumedrol, duonebs. (5) Atrial fibrillation: Status: Acute Qualifiers: Atrial fibrillation type: unspecified Qualified Code(s): I48.91 - Unspecified atrial fibrillation Plan: Continue Amiodarone, metoprolol succinate, eliquis (6) Hypertension: Status: Acute Qualifiers: Hypertension type: essential hypertension Qualified Code(s): I10 - Essential (primary) hypertension Plan: resume home medications (7) Prolonged QT interval: Status: Acute (8) Anemia: Status: Acute Qualifiers: Anemia type: unspecified type Qualified Code(s): D64.9 - Anemia, unspecified Plan: Hgb 9.4, low iron, will start iron supplements. (9) Moderate to severe pulmonary hypertension: Status: Acute
[2019-08-29] MEDS: FERROUS GLUCONATE PO SCH (17:16)
[2019-08-29] MEDS: SNACK - Diabetic Appropriate PO SCH (20:52)
[2019-08-29] MEDS: COZAAR PO SCH (20:53)
[2019-08-29] MEDS: ZOCOR TAB 40 MG PO SCH (20:54)
[2019-08-29] MEDS: HumuLIN R SUBCUT PRN (21:01)
[2019-08-30 05:31] LABS: BASOPHILS % (AUTO) 0.1 % (0.2-1.0); BLOOD UREA NITROGEN 30 mg/dL (7-18); CARBON DIOXIDE 33.4 mmol/L (21-32); CHLORIDE 103 mmol/L (98-107); COR NA(FOR HYPERGLY) 146 mmol/L (136-145); HEMATOCRIT 31.7 % (36.0-47.0); HEMOGLOBIN 9.6 g/dL (12.0-16.0); LYMPHOCYTES # (AUTO) 0.4 X10^3/uL (1.3-2.9); LYMPHOCYTES % (AUTO) 3.4 % (21.0-51.0); MEAN CORPUSCULAR HEMOGLOBIN 23.6 pg (27.0-34.0); MEAN CORPUSCULAR HGB CONC 30.4 g/dL (33.0-35.0); MEAN CORPUSCULAR VOLUME 77.7 fL (80.0-100.0); MEAN PLATELET VOLUME 8.8 fL (7.4-11.0); MONOCYTES # (AUTO) 0.6 x10^3/uL (0.3-0.8); MONOCYTES % (AUTO) 5.2 % (0.0-13.0); NEUTROPHILS # (AUTO) 11.2 x10^3/uL (2.2-4.8); NEUTROPHILS % (AUTO) 91.3 % (42.0-75.0); PLATELET COUNT 390 X10^3/uL (150.0-450.0); RED BLOOD COUNT 4.08 X10^6/uL (3.5-5.4); RED CELL DISTRIBUTION WIDTH 17.9 % (11.6-16.5); SODIUM 144 mmol/L (136-145); WHITE BLOOD COUNT 12.2 X10^3/uL (3.6-10.0); eGFR NON BLACK RACES 51 (>60)
[2019-08-30] MEDS: SOLU-Medrol 125 MG VIAL IVP SCH (05:49)
[2019-08-30] MEDS: ZOSYN VIAL 3.375 GRAMS 3.375 G in NS 100 ML IV + SPIKE MINIBAG* 100 ML IV SCH ×3 (05:49→21:15)
[2019-08-30] MEDS: HumuLIN R SUBCUT PRN ×2 (05:50→17:18)
[2019-08-30 06:07] LABS: PLATELET MORPHOLOGY COMMENT NORMAL (NORMAL)
[2019-08-30 06:08] LABS: ANISOCYTOSIS SLIGHT; HYPOCHROMASIA SLIGHT
[2019-08-30] MEDS: FERROUS GLUCONATE PO SCH ×2 (06:23→17:17)
--- NOTE | 2019-08-30 06:33 | RAD ---
HISTORY: Follow-up congestionStudy: Chest AP portableComparison: 08/28/2019Findings:The heart remains enlarged. No definite congestive heart failure is noted. The lungs are mildly hyperinflated but free of acute alveolar infiltrates. No pleural effusions are identified. The bony thorax is unremarkable.IMPRESSION: Continued marked cardiomegaly without congestive heart failureLungs mildly hyperinflated but clearReported By:
[2019-08-30] MEDS: K-DUR TAB 20 MEQ PO PRN (06:51)
[2019-08-30] MEDS: CORDARONE TAB 200 MG PO SCH (09:06)
[2019-08-30] MEDS: VIBRAMYCIN PO SCH ×2 (09:06→20:56)
[2019-08-30] MEDS: DEPAKOTE D.R. TAB PO SCH (09:06)
[2019-08-30] MEDS: SINGULAIR TAB 10 MG PO SCH (09:07)
[2019-08-30] MEDS: ASPIRIN PO SCH (09:07)
[2019-08-30] MEDS: SYNTHROID 50 mcg TAB PO SCH (09:07)
[2019-08-30] MEDS: TOPROL XL PO SCH ×2 (09:07→20:57)
[2019-08-30] MEDS: PriLOSEC PO SCH (09:07)
[2019-08-30] MEDS: PROzac PO SCH (09:07)
[2019-08-30] MEDS: ELIQUIS PO SCH ×2 (09:07→20:57)
[2019-08-30] MEDS: LASIX IVP SCH (09:08)
[2019-08-30] MEDS: NYSTATIN POWDER TOP SCH ×2 (09:45→20:57)
--- NOTE | 2019-08-30 11:19 | DR.H&P ---
H&P - History & Physical for Day of: H&P Date: 08/27/19 - Chief Complaint Chief Complaint: SOB, LOWER EXTREMITY SWELLING, WEAKNESS - History of Present Illness History of Present Illness: IS A 83 YEAR OLD PATIENT OF OURS. SHE PRESENTED TO THE ER WITH COMPLAINTS OF SHORTNESS OF BREATH, BLE SWELLING, AND SEVERE LOWER EXTREMITY WEAKNESS. SHE REPORTS THAT SHE IS NORMALLY ABLE TO AMBULATE, HOWEVER, HAS NOT BEEN ABLE TO SINCE A FEW HOURS AGO DUE TO SEVERE LEG WEAKNESS. SHE HAS A PMH OF CAD AND CHF AND HAS HOME OXYGEN THAT SHE WEARS NEEDED. PATIENT ALSO REPORTS CONSTIPATION. FAMILY REPORTS THAT SHE FELL AT HOME AFTER GETTING UP FROM THE TOILET. ON ARRIVAL, VITALS WERE 97.8-90-20-80%RA-166/81. OXYGEN WAS STARTED USING NASAL CANNULA. OXYGEN SATURATIONS INCREASED TO 92%. LABS WERE OBTAINED. ABNORMAL LAB VALUES INCLUDE THE FOLLOWING: HGB 10.7, HCT 34.2, D-DIMER 833, BUN 21, GLUCOSE 122, TOTAL PROTEIN 6.3, ALBUMIN 3.1. CARDIAC ENZYMES ARE WITHIN NORMAL LIMITS. BLOOD CULTURES ARE PENDING. CHEST XRAY WAS PENDING AND REVEALED: Cardiomegaly with chronic interstitial lung changes along with low lung volume loss and scarring within the right upper lobe suspicious for fibrosis and or sequela prior partial lobectomy for which clinical correlation is needed. Small right-sided pleural effusion and/or scarring. LOWER EXTREMITY VENOUS DOPPLER WAS OBTAINED AND REVEALED: Negative for bilateral lower extremity DVT. EKG REVEALED: ATRIAL FIBRILLATION WITH HR 83. A CHEST CTA WAS OBTAINED AND REVEALED: No PTE identified. Multifocal ground-glass opacities within bilateral upper lobes, lingula and left lower lobe consistent with developing infiltrates/pneumonitis. Small right-sided pleural effusion. Cardiomegaly. An approximate 5 cm myelolipoma. SHE WAS ADMITTED FOR FURTHER EVALUATION OF HYPOXIA, CHF, LE EDEMA, AND A DECLINE IN GAIT. SHE WAS STARTED ON LASIX 40MG IV DAILY, THE POTASSIUM AND MAGNESIUM PROTOCOLS, SOLU-MEDROL 80MG IV Q8H , A BOWEL REGIMEN, AND HOME MEDICATIONS WERE RESUMED. OTHERWISE, WE PLAN TO FOLLOW UP WITH AM LABS AND CONTINUE TO MONITOR. - Past Medical History Past Medical History: CHF, Coronary Artery Disease, Diabetes, Hypertension - Past Surgical History Surgical History: Ortho Surgery - Family History Family Medical History: Cancer - Social History Does patient currently use any type of tobacco product: No Have you used tobacco products in the last 12 months: No Type of Tobacco Use: None Does any household member use tobacco: No Alcohol Use: None Drug Use: Prescription Drugs - Medications Home Medications: ibuprofen Allergy (Verified 08/26/19 22:47) CONTINUE taking the following medications RX: alprazolam 0.25 mg PO TID PRN 08/27/19 [History] RX: amiodarone 200 mg PO DAILY 08/27/19 [History] RX: aspirin 325 mg PO DAILY 08/27/19 [History] RX: clonidine HCl 0.1 mg PO DAILY 08/27/19 [History] RX: divalproex 250 mg PO DAILY 08/27/19 [History] RX: ergocalciferol (vitamin D2) 50,000 unit PO WEEKLY 08/27/19 [History] RX: fluoxetine 20 mg PO DAILY 08/27/19 [History] RX: hydrocodone-acetaminophen 1 tab PO Q4H PRN 08/27/19 [History] RX: levothyroxine 50 mcg PO DAILY 08/27/19 [History] RX: losartan 100 mg PO HS 08/27/19 [History] RX: metoprolol succinate 50 mg PO BID 08/27/19 [History] RX: montelukast 10 mg PO DAILY 08/27/19 [History] RX: omeprazole 20 mg PO DAILY 08/27/19 [History] RX: potassium chloride 10 meq PO DAILY 08/27/19 [History] RX: simvastatin 40 mg PO HS 08/27/19 [History] apixaban [Eliquis] 2.5 mg PO BID 08/27/19 [History] - Review of Systems Constitutional: Weakness Eyes: No Symptoms Reported ENT: No Symptoms Reported Respiratory: Shortness of Breath, SOB with Excertion Cardiovascular: Edema (BLE EDEMA ) Gastrointestinal: No Symptoms Reported Genitourinary: No Symptoms Reported Musculoskeletal: Leg Pain Skin: No Symptoms Reported Neurological: Weakness - Physical Exam Vital Signs: Temperature 98.6 F Pulse Rate [Left Brachial] 104 Pulse Rate 97 Respiratory Rate 20 Blood Pressure [Left Arm] 124/74 Blood Pressure [Right Arm] 123/75 Blood Pressure 126/65 O2 Sat by Pulse Oximetry 94 Oriented: Normal Eyes: Normal Ear: Normal Nose: Normal Throat: Normal Respiratory: Diminished Throughout Cardiovascular: Edema (BLE EDEMA ). negative: S3, S4, Murmur : Normal Auscultation: Bowel Sounds: Normal Palpation: Normal Tenderness: Normal Skin: Normal Musculoskeletal: Motor Deficit (BLE WEAKNESS ) Psychiatric: Normal Mood Description: Calm Affect: Normal Speech Pattern: Clear - Assessment/Plan (1) CHF exacerbation Qualifiers: Heart failure type: unspecified Qualified Code(s): I50.9 - Heart failure, unspecified Status: Acute Plan: admit, lasix 40mg iv daily, solu-medrol 80mg iv q8h, supplemental oxygen, monitor labs and chest xray (2) Hypoxia Status: Acute (3) Leg edema Status: Acute (4) Weakness Status: Acute - Allergies Allergies/Adverse Reactions: Allergies Allergy/AdvReac Type Severity Reaction Status Date / Time ibuprofen Allergy Verified 08/26/19 22:47
[2019-08-30] MEDS: CARDIZEM CD 120 MG 24-HR PO SCH (16:12)
[2019-08-30] MEDS: SNACK - Diabetic Appropriate PO SCH (20:30)
[2019-08-30] MEDS: COZAAR PO SCH (20:56)
[2019-08-30] MEDS: ZOCOR TAB 40 MG PO SCH (20:57)
[2019-08-31] MEDS: ZOSYN VIAL 3.375 GRAMS 3.375 G in NS 100 ML IV + SPIKE MINIBAG* 100 ML IV SCH ×3 (05:40→22:43)
[2019-08-31 05:54] LABS: BASOPHILS % (AUTO) 0.2 % (0.2-1.0); HEMATOCRIT 27.1 % (36.0-47.0); HEMOGLOBIN 8.5 g/dL (12.0-16.0); LYMPHOCYTES # (AUTO) 0.4 X10^3/uL (1.3-2.9); LYMPHOCYTES % (AUTO) 4.1 % (21.0-51.0); MEAN CORPUSCULAR HEMOGLOBIN 24.2 pg (27.0-34.0); MEAN CORPUSCULAR HGB CONC 31.4 g/dL (33.0-35.0); MEAN PLATELET VOLUME 8.8 fL (7.4-11.0); MONOCYTES # (AUTO) 0.8 x10^3/uL (0.3-0.8); MONOCYTES % (AUTO) 8.4 % (0.0-13.0); NEUTROPHILS # (AUTO) 7.9 x10^3/uL (2.2-4.8); NEUTROPHILS % (AUTO) 87.3 % (42.0-75.0); PLATELET COUNT 275 X10^3/uL (150.0-450.0); RED BLOOD COUNT 3.52 X10^6/uL (3.5-5.4); RED CELL DISTRIBUTION WIDTH 17.5 % (11.6-16.5)
[2019-08-31 06:05] LABS: BLOOD UREA NITROGEN 34 mg/dL (7-18); CALCIUM 8.5 mg/dL (8.5-10.1); CARBON DIOXIDE 39.5 mmol/L (21-32); CHLORIDE 103 mmol/L (98-107); COR NA(FOR HYPERGLY) 148 mmol/L (136-145); CREATININE 0.99 mg/dL (0.55-1.02); SODIUM 147 mmol/L (136-145); eGFR NON BLACK RACES 57 (>60)
[2019-08-31 06:49] LABS: HYPOCHROMASIA SLIGHT; PLATELET MORPHOLOGY COMMENT NORMAL (NORMAL)
[2019-08-31] MEDS: K-DUR TAB 20 MEQ PO PRN ×2 (09:21→16:35)
[2019-08-31] MEDS: DEPAKOTE D.R. TAB PO SCH (09:21)
[2019-08-31] MEDS: VIBRAMYCIN PO SCH ×2 (09:21→21:02)
[2019-08-31] MEDS: CARDIZEM CD 120 MG 24-HR PO SCH (09:21)
[2019-08-31] MEDS: PROzac PO SCH (09:21)
[2019-08-31] MEDS: PriLOSEC PO SCH (09:22)
[2019-08-31] MEDS: ELIQUIS PO SCH ×2 (09:22→21:01)
[2019-08-31] MEDS: SINGULAIR TAB 10 MG PO SCH (09:22)
[2019-08-31] MEDS: TOPROL XL PO SCH ×2 (09:22→21:02)
[2019-08-31] MEDS: SYNTHROID 50 mcg TAB PO SCH (09:22)
[2019-08-31] MEDS: CORDARONE TAB 200 MG PO SCH (09:22)
[2019-08-31] MEDS: ASPIRIN PO SCH (09:22)
[2019-08-31] MEDS: FERROUS GLUCONATE PO SCH ×2 (09:22→16:35)
[2019-08-31] MEDS: NYSTATIN POWDER TOP SCH ×2 (09:23→21:02)
[2019-08-31] MEDS: MAGNESIUM SULFATE 1 GRAM/100 mL PREMIX 1 GM/100 ML BAG IV PRN ×2 (09:23→16:36)
[2019-08-31] MEDS: LASIX IVP SCH (09:23)
[2019-08-31] MEDS: ALDACTONE TAB 25 MG PO SCH (11:01)
[2019-08-31] MEDS: HumuLIN R SUBCUT PRN (17:02)
[2019-08-31] MEDS: COZAAR PO SCH (21:01)
[2019-08-31] MEDS: SNACK - Diabetic Appropriate PO SCH (21:01)
[2019-08-31] MEDS: ZOCOR TAB 40 MG PO SCH (21:02)
[2019-09-01 00:47] LABS: ABG BASE EXCESS 17.3 mmol/L (-2.0-2.0)
[2019-09-01 00:49] LABS: ABG ALLEN TEST POS; ABG HCO3 44.5 mmol/L (22-26)
[2019-09-01 05:24] LABS: BASOPHILS % (AUTO) 0.1 % (0.2-1.0); EOSINOPHILS % (AUTO) 0.2 % (0.9-2.9); HEMOGLOBIN 8.7 g/dL (12.0-16.0); LYMPHOCYTES # (AUTO) 0.6 X10^3/uL (1.3-2.9); LYMPHOCYTES % (AUTO) 6.3 % (21.0-51.0); MEAN CORPUSCULAR HGB CONC 31.3 g/dL (33.0-35.0); MEAN CORPUSCULAR VOLUME 76.8 fL (80.0-100.0); MEAN PLATELET VOLUME 8.8 fL (7.4-11.0); MONOCYTES % (AUTO) 10.2 % (0.0-13.0); NEUTROPHILS # (AUTO) 7.8 x10^3/uL (2.2-4.8); NEUTROPHILS % (AUTO) 83.2 % (42.0-75.0); PLATELET COUNT 277 X10^3/uL (150.0-450.0); RED BLOOD COUNT 3.64 X10^6/uL (3.5-5.4); RED CELL DISTRIBUTION WIDTH 17.6 % (11.6-16.5); WHITE BLOOD COUNT 9.4 X10^3/uL (3.6-10.0)
[2019-09-01 05:37] LABS: ALANINE AMINOTRANSFERASE 176 Units/L (12-78); ALBUMIN 2.8 g/dL (3.4-5.0); ALKALINE PHOSPHATASE 98 Units/L (46-116); ASPARTATE AMINO TRANSFERASE 123 Units/L (15-37); BLOOD UREA NITROGEN 26 mg/dL (7-18); CALCIUM 8.3 mg/dL (8.5-10.1); CHLORIDE 104 mmol/L (98-107); COR CA(FOR HYPOALB) 9.3 mg/dL (8.5-10.1); COR NA(FOR HYPERGLY) 148 mmol/L (136-145); CREATININE 0.83 mg/dL (0.55-1.02); MAGNESIUM 1.9 mg/dL (1.7-2.9); SODIUM 147 mmol/L (136-145); TOTAL PROTEIN 5.6 g/dL (6.4-8.2); eGFR NON BLACK RACES > 60 (>60)
[2019-09-01] MEDS: ZOSYN VIAL 3.375 GRAMS 3.375 G in NS 100 ML IV + SPIKE MINIBAG* 100 ML IV SCH ×3 (05:39→21:45)
--- NOTE | 2019-09-01 06:10 | RAD ---
HISTORY: Shortness of breathStudy: Chest AP portableComparison: 08/30/2019Findings:Patient is rotated to the left. The heart remains markedly enlarged. There is pulmonary venous congestion present. No interstitial edema, alveolar edema, alveolar infiltrates or pleural effusions are identified. The bony thorax is unremarkable.IMPRESSION: Continued cardiomegaly now with pulmonary venous congestionReported By:
[2019-09-01 06:11] LABS: ANISOCYTOSIS SLIGHT; HYPOCHROMASIA SLIGHT; PLATELET MORPHOLOGY COMMENT NORMAL (NORMAL)
[2019-09-01] MEDS: K-DUR TAB 20 MEQ PO PRN (06:28)
[2019-09-01] MEDS: ELIQUIS PO SCH ×2 (09:33→21:44)
[2019-09-01] MEDS: VIBRAMYCIN PO SCH ×2 (09:33→21:45)
[2019-09-01] MEDS: CARDIZEM CD 120 MG 24-HR PO SCH (09:33)
[2019-09-01] MEDS: ASPIRIN PO SCH (09:33)
[2019-09-01] MEDS: PriLOSEC PO SCH (09:33)
[2019-09-01] MEDS: SYNTHROID 50 mcg TAB PO SCH (09:34)
[2019-09-01] MEDS: FERROUS GLUCONATE PO SCH ×2 (09:34→16:19)
[2019-09-01] MEDS: TOPROL XL PO SCH ×2 (09:34→21:45)
[2019-09-01] MEDS: DEPAKOTE D.R. TAB PO SCH (09:34)
[2019-09-01] MEDS: ALDACTONE TAB 25 MG PO SCH (09:34)
[2019-09-01] MEDS: CORDARONE TAB 200 MG PO SCH (09:34)
[2019-09-01] MEDS: SINGULAIR TAB 10 MG PO SCH (09:51)
[2019-09-01] MEDS: NYSTATIN POWDER TOP SCH ×2 (09:51→21:44)
[2019-09-01] MEDS: PROzac PO SCH (09:51)
[2019-09-01] MEDS: LASIX IVP SCH (09:51)
--- NOTE | 2019-09-01 12:05 | PCM.PROG ---
Progress Note - Progress Note for Day of Date of Exam: 08/30/19 - Subjective Subjective: WAS ADMITTED FOR FURTHER EVALUATION AND TREATMENT OF HYPOXIA, CHF, LE EDEMA, AND A DECLINE IN GAIT. TODAY, SHE IS ALERT AND ORIENTED, LYING IN BED ON MORNING ROUNDS. SHE CONTINUES WITH COMPLAINTS OF SHORTNESS OF BREATH AND WEAKNESS TODAY. SHE CONTINUES WITH SOME LOWER EXTREMITY SWELLING. ON EXAMINATION, HEART IS REGULAR IN RATE AND RHYTHM. BILATERAL LUNGS ARE NOTED WITH DIMINISHED LUNG SOUNDS THROUGHOUT. ABDOMEN IS ROUND, SOFT, AND NON-TENDER WITH NORMAL BOWEL SOUNDS NOTED IN ALL QUADRANTS. LOWER EXTREMITIES ARE NOTED WITH 1+ PITTING EDEMA. HER VITALS THIS MORNING ARE: 98.0-113-18-94%-110/68. LABS WERE OBTAINED. ABNORMAL LAB VALUES INCLUDE THE FOLLOWING: WBC 12.2, HGB 9.6, HCT 31.7, CORRECTED ODIUM 146, CARBON DIOXIDE 33.4, BUN 30, CREATININE 1.10, GLUCOSE 188. BLOOD CULTURES ARE PENDING. A CHEST XRAY WAS OBTAINED TODAY AND REVEALED: CONTINUED MARKED CARDIOMEGALY WITHOUT CHF. LUNGS MILDLY HYPERINFLATED BUT CLEAR. AN ECHO WAS OBTAINED ON 08/27 AND REVEALED AN EJECTION FRACTION OF 33%. VENOUS DOPPLER NEGATIVE FOR DVT. SHE IS CURRENTLY RECEIVING IV ZOSYN, VIBRAMYCIN, LASIX 40MG IV DAILY, THE POTASSIUM AND MAGNESIUM PROTOCOLS, AND HER HOME MEDICATIONS WERE RESUMED. WE WILL CONTINUE WITH CURRENT PLAN OF CARE TODAY. OTHERWISE, WE WILL FOLLOW UP WITH AM LABS AND CONTINUE TO MONITOR. - Past Medical Family Social History Past Med/Fam/Surg Hx: No changes since H&P Allergies: Allergies ibuprofen Allergy (Verified 08/26/19 22:47) - Review of Systems ROS: No change since H&P - Vital Signs and I&O's Vital Signs: Temperature 98.8 F Pulse Rate [Left Brachial] 92 Pulse Rate 97 Respiratory Rate 18 Blood Pressure [Left Arm] 124/74 Blood Pressure [Right Arm] 139/74 Blood Pressure 126/65 O2 Sat by Pulse Oximetry 93 Intake and Output: Intake & Output 08/30/19 08/31/19 09/01/19 09/02/19 11:59 11:59 11:59 11:59 Intake Total 1350 / 1350 940 / 940 935 / 935 Output Total 750 / 750 Balance 600 / 600 940 / 940 935 / 935 - Physical Exam Oriented: Normal Eyes: Normal Ear: Normal Nose: Normal Throat: Normal Respiratory: Generalized, Rales Cardiovascular: Edema (BLE EDEMA ). negative: S3, S4, Murmur : Normal Auscultation: Bowel Sounds: Normal Palpation: Normal Tenderness: Normal Skin: Normal Musculoskeletal: Motor Deficit (BLE WEAKNESS ) Psychiatric: Normal Mood Description: Calm Affect: Normal Speech Pattern: Clear, Appropriate - Laboratory and Diagnostics Result Diagrams: 09/01/19 04:27 09/01/19 04:27 Labs: 08/27/19 13:18 Blood Blood Culture - Preliminary 08/27/19 13:10 Blood Blood Culture - Preliminary Laboratory WBC 9.4 X10^3/uL (3.6-10.0) 09/01/19 04:27 RBC 3.64 X10^6/uL (3.5-5.4) 09/01/19 04:27 Hgb 8.7 g/dL (12.0-16.0) L 09/01/19 04:27 Hct 28.0 % (36.0-47.0) L 09/01/19 04:27 MCV 76.8 fL (80.0-100.0) L 09/01/19 04:27 MCH 24.0 pg (27.0-34.0) L 09/01/19 04:27 MCHC 31.3 g/dL (33.0-35.0) L 09/01/19 04:27 RDW 17.6 % (11.6-16.5) H 09/01/19 04:27 Plt Count 277 X10^3/uL (150.0-450.0) 09/01/19 04:27 Plt Count Comment Adequate (ADEQUATE) 09/01/19 04:27 MPV 8.8 fL (7.4-11.0) 09/01/19 04:27 Neut % (Auto) 83.2 % (42.0-75.0) H 09/01/19 04:27 Lymph % (Auto) 6.3 % (21.0-51.0) L 09/01/19 04:27 [place] % (Auto) 10.2 % (0.0-13.0) 09/01/19 04:27 Eos % (Auto) 0.2 % (0.9-2.9) L 09/01/19 04:27 Baso % (Auto) 0.1 % (0.2-1.0) L 09/01/19 04:27 Neut # (Auto) 7.8 x10^3/uL (2.2-4.8) H 09/01/19 04:27 Lymph # (Auto) 0.6 X10^3/uL (1.3-2.9) L 09/01/19 04:27 [place] # (Auto) 1.0 x10^3/uL (0.3-0.8) H 09/01/19 04:27 Eos # (Auto) 0.0 x10^3/uL (0.0-0.2) 09/01/19 04:27 Baso # (Auto) 0.0 X10^3/uL (0.0-0.1) 09/01/19 04:27 Absolute Nucleated RBC 0.7 /100WBC 09/01/19 04:27 Total Counted 100 08/30/19 04:44 Neutrophils % (Manual) 89 % (39-76) H 08/30/19 04:44 Band Neutrophils % 1 % (0-10) 08/29/19 06:18 Lymphocytes % (Manual) 5 % (13-43) L 08/30/19 04:44 Monocytes % (Manual) 6 % (4-9) 08/30/19 04:44 Plt Morphology Comment Normal (NORMAL) 09/01/19 04:27 RBC Morphology Abnormal (NORMAL) A 09/01/19 04:27 Hypochromasia Slight A 09/01/19 04:27 Anisocytosis Slight A 09/01/19 04:27 ESR 6 MM/HOUR (0-20) 08/27/19 13:10 D-Dimer 833 ng/mL (0-400) H* 08/26/19 23:15 Sample Site Rrad 09/01/19 00:41 ABG pH 7.450 (7.35-7.45) 09/01/19 00:41 ABG pCO2 64.0 mmHg (35.0-45.0) H* 09/01/19 00:41 ABG pO2 67.0 mmHg (80.0-100.0) L 09/01/19 00:41 ABG HCO3 44.5 mmol/L (22-26) H* 09/01/19 00:41 ABG O2 Saturation 94.0 % (90-100) 09/01/19 00:41 ABG Base Excess 17.3 mmol/L (-2.0-2.0) H 09/01/19 00:41 Dennis Test Pos 09/01/19 00:41 A-a Gradient 81.0 mmHg 09/01/19 00:41 FiO2 32.0 09/01/19 00:41 Blood Gas Comments Mirtha abg well-mtf 09/01/19 00:41 Sodium 147 mmol/L (136-145) H 09/01/19 04:27 Corrected Sodium 148 mmol/L (136-145) H 09/01/19 04:27 Potassium 3.3 mmol/L (3.5-5.1) L 09/01/19 04:27 Chloride 104 mmol/L (98-107) 09/01/19 04:27 Carbon Dioxide 40.0 mmol/L (21-32) H 09/01/19 04:27 BUN 26 mg/dL (7-18) H 09/01/19 04:27 Creatinine 0.83 mg/dL (0.55-1.02) 09/01/19 04:27 Est GFR (MDRD) Af Amer > 60 (>60) 09/01/19 04:27 Est GFR (MDRD) Non-Af > 60 (>60) 09/01/19 04:27 Glucose 142 mg/dL (65-99) H 09/01/19 04:27 POC Glucose (mg/dL) 128 mg/dL (65-99) H 09/01/19 05:50 Calcium 8.3 mg/dL (8.5-10.1) L 09/01/19 04:27 Corrected Calcium 9.3 mg/dL (8.5-10.1) 09/01/19 04:27 Magnesium 1.9 mg/dL (1.7-2.9) 09/01/19 04:27 Iron 14 ug/dL (50-175) L 08/29/19 06:18 Transferrin 338 mg/dL (202-364) 08/29/19 06:18 Ferritin 47 ng/mL (8-252) 08/29/19 06:18 Total Bilirubin 0.60 mg/dL (0.2-1.0) 09/01/19 04:27 AST 123 Units/L (15-37) H 09/01/19 04:27 ALT 176 Units/L (12-78) H 09/01/19 04:27 Alkaline Phosphatase 98 Units/L (46-116) 09/01/19 04:27 Creatine Kinase 88 Units/L (26-192) 08/27/19 11:36 CK-MB (CK-2) 1.9 ng/mL (0-4.0) 08/27/19 11:36 CK/CKMB % Calc 2.2 % (<4) 08/27/19 11:36 Troponin I < 0.02 ng/mL (0-1.5) 08/27/19 11:36 B-Natriuretic Peptide 796 pg/mL (0-79) H* 08/27/19 13:10 Total Protein 5.6 g/dL (6.4-8.2) L 09/01/19 04:27 Albumin 2.8 g/dL (3.4-5.0) L 09/01/19 04:27 Globulin 2.8 g/dL (2.5-4.5) 09/01/19 04:27 Albumin/Globulin Ratio 1.0 Ratio (1.1-2.1) L 09/01/19 04:27 Vitamin B12 1090 pg/mL (193-986) H 08/29/19 06:18 Folate 7.4 ng/mL (>8.6) L 08/29/19 06:18 Specimen Type Clean catch urine 08/27/19 11:24 Urine Color Pale yellow (YELLOW) 08/27/19 11:24 Urine Appearance Clear (CLEAR) 08/27/19 11:24 Urine pH 7.0 (5.0 - 8.0) 08/27/19 11:24 Ur Specific [place] 1.015 (1.000-1.030) 08/27/19 11:24 Urine Protein Negative (NEGATIVE) 08/27/19 11:24 Urine Glucose (UA) Negative (NEGATIVE) 08/27/19 11:24 Urine Ketones Negative (NEGATIVE) 08/27/19 11:24 Urine Occult Blood Negative (NEGATIVE) 08/27/19 11:24 Urine Nitrite Negative (NEGATIVE) 08/27/19 11:24 Urine Bilirubin Negative (NEGATIVE) 08/27/19 11:24 Urine Urobilinogen Normal (NORMAL) 08/27/19 11:24 Ur Leukocyte Esterase Negative (NEGATIVE) 08/27/19 11:24 Stool Description 10g. unformed/black 09/01/19 03:22 Stl Occult Blood (IFOB) Positive (NEGATIVE) A 09/01/19 03:22 - Plan (1) CHF exacerbation Status: Acute Qualifiers: Heart failure type: unspecified Qualified Code(s): I50.9 - Heart failure, unspecified Plan: ECHO: mild LVH, decreased global wall motion, EF 33%, severe TR. Severe pulmonary HTN, dilated IVC. No prev echo to compare. Continue diuresis with Lasix IV, wean oxygen as tolerated. Continue asa, statin, losartan, metoprolol succinate. Strict I/Os. Repeat CXR in the AM. (2) Hypoxia Status: Acute (3) Leg edema Status: Acute Plan: improving, Doppler negative for DVT. Continue diuresis (4) Dyspnea Status: Acute Qualifiers: Dyspnea type: shortness of breath Qualified Code(s): R06.02 - Shortness of breath; R06.00 - Dyspnea, unspecified; R06.01 - Orthopnea Plan: due to CHF exacerbation and pneumonitis. D-dimer elevated, CT negative for PE. (5) Anemia Status: Acute Qualifiers: Anemia type: unspecified type Qualified Code(s): D64.9 - Anemia, un specified Plan: Hgb 9.4, low iron, iron supplements. (6) Hypertension Status: Acute Qualifiers: Hypertension type: essential hypertension Qualified Code(s): I10 - [place] l (primary) hypertension Plan: resume home medications
[2019-09-01] MEDS: HEMOCYTE-PLUS PO SCH (12:08)
[2019-09-01] MEDS: HumuLIN R SUBCUT PRN (12:14)
--- NOTE | 2019-09-01 13:12 | PCM.PROG ---
Progress Note - Progress Note for Day of Date of Exam: 08/31/19 - Subjective Subjective: WAS ADMITTED FOR TREATMENT OF HYPOXIA, CHF, LE EDEMA, AND A DECLINE IN GAIT. TODAY, SHE IS ALERT AND ORIENTED, LYING IN BED ON MORNING ROUNDS. SHE CONTINUES WITH COMPLAINTS OF SHORTNESS OF BREATH AT TIMES AND WEAKNESS TODAY. SHE CONTINUES WITH SOME LOWER EXTREMITY SWELLING. ON EXAMI NATION, HEART IS REGULAR IN RATE AND RHYTHM. BILATERAL LUNGS ARE NOTED WITH DIMINISHED LUNG SOUNDS THROUGHOUT. ABDOMEN IS ROUND, SOFT, AND NON-TENDER WITH NORMAL BOWEL SOUNDS NOTED IN ALL QUADRANTS. LOWER EXTREMITIES ARE NOTED WITH 1+ PITTING EDEMA. HER VITALS THIS MORNING ARE: 97.4-90-18-94%-148/94. LABS WERE OBTAINED. ABNORMAL LAB VALUES INCLUDE THE FOLLOWING: WBC HGB 8.5, HCT 27.1, SODIUM 147, POTASSIUM 2.7, CARBON DIOXIDE 39.5, BUN 34, GLUCOSE 150, MAGNESIUM 1.6. BLOOD CULTURES ARE PENDING. A CHEST XRAY WAS OBTAINED TODAY AND REVEALED: CONTINUED MARKED CARDIOMEGALY WITHOUT CHF. LUNGS MILDLY HYPERINFLATED BUT CLEAR. AN ECHO WAS OBTAINED ON 08/27 AND REVEALED AN EJECTION FRACTION OF 33%. VENOUS DOPPLER NEGATIVE FOR DVT. SHE IS CURRENTLY RECEIVING IV ZOSYN, VIBRAMYCIN, LASIX 40MG IV DAILY, THE POTASSIUM AND MAGNESIUM PROTOCOLS, AND HER HOME MEDICATIONS WERE RESUMED. TODAY, WE WILL DECREASE THE LASIX TO 20MG IV DAILY AND ADD ALDACTONE 25MG PO DAILY. OTHERWISE, WE WILL CONTINUE WITH CURRENT PLAN OF CARE TODAY. WE WILL FOLLOW UP WITH AM LABS AND CONTINUE TO MONITOR. - Past Medical Family Social History Past Med/Fam/Surg Hx: No changes since H&P Allergies: Allergies ibuprofen Allergy (Verified 08/26/19 22:47) - Review of Systems ROS: No change since H&P - Vital Signs and I&O's Vital Signs: Temperature 98.7 F Pulse Rate [Left Brachial] 79 Pulse Rate 97 Respiratory Rate 20 Blood Pressure [Left Arm] 124/74 Blood Pressure [Right Arm] 128/68 Blood Pressure 126/65 O2 Sat by Pulse Oximetry 92 Intake and Output: Intake & Output 08/30/19 08/31/19 09/01/19 09/02/19 11:59 11:59 11:59 11:59 Intake Total 1350 / 1350 940 / 940 935 / 935 Output Total 750 / 750 Balance 600 / 600 940 / 940 935 / 935 - Physical Exam Oriented: Normal Eyes: Normal Ear: Normal Nose: Normal Throat: Normal Respiratory: Generalized, Rales Cardiovascular: Edema (BLE EDEMA ). negative: S3, S4, Murmur : Normal Auscultation: Bowel Sounds: Normal Palpation: Normal Tenderness: Normal Skin: Normal Musculoskeletal: Motor Deficit (BLE WEAKNESS ) Psychiatric: Normal Mood Description: Calm Affect: Normal Speech Pattern: Clear, Appropriate - Laboratory and Diagnostics Result Diagrams: 09/01/19 04:27 09/01/19 11:52 Labs: 08/27/19 13:18 Blood Blood Culture - Preliminary 08/27/19 13:10 Blood Blood Culture - Preliminary Laboratory WBC 9.4 X10^3/uL (3.6-10.0) 09/01/19 04:27 RBC 3.64 X10^6/uL (3.5-5.4) 09/01/19 04:27 Hgb 8.7 g/dL (12.0-16.0) L 09/01/19 04:27 Hct 28.0 % (36.0-47.0) L 09/01/19 04:27 MCV 76.8 fL (80.0-100.0) L 09/01/19 04:27 MCH 24.0 pg (27.0-34.0) L 09/01/19 04:27 MCHC 31.3 g/dL (33.0-35.0) L 09/01/19 04:27 RDW 17.6 % (11.6-16.5) H 09/01/19 04:27 Plt Count 277 X10^3/uL (150.0-450.0) 09/01/19 04:27 Plt Count Comment Adequate (ADEQUATE) 09/01/19 04:27 MPV 8.8 fL (7.4-11.0) 09/01/19 04:27 Neut % (Auto) 83.2 % (42.0-75.0) H 09/01/19 04:27 Lymph % (Auto) 6.3 % (21.0-51.0) L 09/01/19 04:27 [place] % (Auto) 10.2 % (0.0-13.0) 09/01/19 04:27 Eos % (Auto) 0.2 % (0.9-2.9) L 09/01/19 04:27 Baso % (Auto) 0.1 % (0.2-1.0) L 09/01/19 04:27 Neut # (Auto) 7.8 x10^3/uL (2.2-4.8) H 09/01/19 04:27 Lymph # (Auto) 0.6 X10^3/uL (1.3-2.9) L 09/01/19 04:27 [place] # (Auto) 1.0 x10^3/uL (0.3-0.8) H 09/01/19 04:27 Eos # (Auto) 0.0 x10^3/uL (0.0-0.2) 09/01/19 04:27 Baso # (Auto) 0.0 X10^3/uL (0.0-0.1) 09/01/19 04:27 Absolute Nucleated RBC 0.7 /100WBC 09/01/19 04:27 Total Counted 100 08/30/19 04:44 Neutrophils % (Manual) 89 % (39-76) H 08/30/19 04:44 Band Neutrophils % 1 % (0-10) 08/29/19 06:18 Lymphocytes % (Manual) 5 % (13-43) L 08/30/19 04:44 Monocytes % (Manual) 6 % (4-9) 08/30/19 04:44 Plt Morphology Comment Normal (NORMAL) 09/01/19 04:27 RBC Morphology Abnormal (NORMAL) A 09/01/19 04:27 Hypochromasia Slight A 09/01/19 04:27 Anisocytosis Slight A 09/01/19 04:27 ESR 6 MM/HOUR (0-20) 08/27/19 13:10 D-Dimer 833 ng/mL (0-400) H* 08/26/19 23:15 Sample Site Rrad 09/01/19 00:41 ABG pH 7.450 (7.35-7.45) 09/01/19 00:41 ABG pCO2 64.0 mmHg (35.0-45.0) H* 09/01/19 00:41 ABG pO2 67.0 mmHg (80.0-100.0) L 09/01/19 00:41 ABG HCO3 44.5 mmol/L (22-26) H* 09/01/19 00:41 ABG O2 Saturation 94.0 % (90-100) 09/01/19 00:41 ABG Base Excess 17.3 mmol/L (-2.0-2.0) H 09/01/19 00:41 Dennis Test Pos 09/01/19 00:41 A-a Gradient 81.0 mmHg 09/01/19 00:41 FiO2 32.0 09/01/19 00:41 Blood Gas Comments Mirtha abg well-mtf 09/01/19 00:41 Sodium 147 mmol/L (136-145) H 09/01/19 04:27 Corrected Sodium 148 mmol/L (136-145) H 09/01/19 04:27 Potassium 3.8 mmol/L (3.5-5.1) 09/01/19 11:52 Chloride 104 mmol/L (98-107) 09/01/19 04:27 Carbon Dioxide 40.0 mmol/L (21-32) H 09/01/19 04:27 BUN 26 mg/dL (7-18) H 09/01/19 04:27 Creatinine 0.83 mg/dL (0.55-1.02) 09/01/19 04:27 Est GFR (MDRD) Af Amer > 60 (>60) 09/01/19 04:27 Est GFR (MDRD) Non-Af > 60 (>60) 09/01/19 04:27 Glucose 142 mg/dL (65-99) H 09/01/19 04:27 POC Glucose (mg/dL) 160 mg/dL (65-99) H 09/01/19 12:12 Calcium 8.3 mg/dL (8.5-10.1) L 09/01/19 04:27 Corrected Calcium 9.3 mg/dL (8.5-10.1) 09/01/19 04:27 Magnesium 1.9 mg/dL (1.7-2.9) 09/01/19 04:27 Iron 14 ug/dL (50-175) L 08/29/19 06:18 Transferrin 338 mg/dL (202-364) 08/29/19 06:18 Ferritin 47 ng/mL (8-252) 08/29/19 06:18 Total Bilirubin 0.60 mg/dL (0.2-1.0) 09/01/19 04:27 AST 123 Units/L (15-37) H 09/01/19 04:27 ALT 176 Units/L (12-78) H 09/01/19 04:27 Alkaline Phosphatase 98 Units/L (46-116) 09/01/19 04:27 Creatine Kinase 88 Units/L (26-192) 08/27/19 11:36 CK-MB (CK-2) 1.9 ng/mL (0-4.0) 08/27/19 11:36 CK/CKMB % Calc 2.2 % (<4) 08/27/19 11:36 Troponin I < 0.02 ng/mL (0-1.5) 08/27/19 11:36 B-Natriuretic Peptide 796 pg/mL (0-79) H* 08/27/19 13:10 Total Protein 5.6 g/dL (6.4-8.2) L 09/01/19 04:27 Albumin 2.8 g/dL (3.4-5.0) L 09/01/19 04:27 Globulin 2.8 g/dL (2.5-4.5) 09/01/19 04:27 Albumin/Globulin Ratio 1.0 Ratio (1.1-2.1) L 09/01/19 04:27 Vitamin B12 1090 pg/mL (193-986) H 08/29/19 06:18 Folate 7.4 ng/mL (>8.6) L 08/29/19 06:18 Specimen Type Clean catch urine 08/27/19 11:24 Urine Color Pale yellow (YELLOW) 08/27/19 11:24 Urine Appearance Clear (CLEAR) 08/27/19 11:24 Urine pH 7.0 (5.0 - 8.0) 08/27/19 11:24 Ur Specific [place] 1.015 (1.000-1.030) 08/27/19 11:24 Urine Protein Negative (NEGATIVE) 08/27/19 11:24 Urine Glucose (UA) Negative (NEGATIVE) 08/27/19 11:24 Urine Ketones Negative (NEGATIVE) 08/27/19 11:24 Urine Occult Blood Negative (NEGATIVE) 08/27/19 11:24 Urine Nitrite Negative (NEGATIVE) 08/27/19 11:24 Urine Bilirubin Negative (NEGATIVE) 08/27/19 11:24 Urine Urobilinogen Normal (NORMAL) 08/27/19 11:24 Ur Leukocyte Esterase Negative (NEGATIVE) 08/27/19 11:24 Stool Description 10g. unformed/black 09/01/19 03:22 Stl Occult Blood (IFOB) Positive (NEGATIVE) A 09/01/19 03:22 - Plan (1) CHF exacerbation Status: Acute Qualifiers: Heart failure type: unspecified Qualified Code(s): I50.9 - Heart failure, unspecified Plan: ECHO: mild LVH, decreased global wall motion, EF 33%, severe TR. Severe pulmonary HTN, dilated IVC. No prev echo to compare. Continue diuresis with Lasix IV and aldactone, wean oxygen as tolerated. Continue asa, statin, losartan, metoprolol succinate. Strict I/Os. Repeat CXR in the AM. (2) Hypoxia Status: Acute (3) Leg edema Status: Acute Plan: improving, Doppler negative for DVT. Continue diuresis (4) Dyspnea Status: Acute Qualifiers: Dyspnea type: shortness of breath Qualified Code(s): R06.02 - Shortness of breath; R06.00 - Dyspnea, unspecified; R06.01 - Orthopnea Plan: due to CHF exacerbation and pneumonitis. D-dimer elevated, CT negative for PE. (5) Anemia Status: Acute Qualifiers: Anemia type: unspecified type Qualified Code(s): D64.9 - Anemia, unspecified Plan: Hgb 9.4, low iron, iron supplements. (6) Hypertension Status: Acute Qualifiers: Hypertension type: essential hypertension Qualified Code(s): I10 - Essential (primary) hypertension Plan: resume home medications
[2019-09-01] MEDS: NS 500 ML IV 500 ML IV PRN (14:41)
[2019-09-01] MEDS: COZAAR PO SCH (21:44)
[2019-09-01] MEDS: SNACK - Diabetic Appropriate PO SCH (21:44)
--- NOTE | 2019-09-01 21:44 | PCM.PROG ---
Progress Note - Progress Note for Day of Date of Exam: 09/01/19 - Subjective Subjective: WAS ADMITTED FOR TREATMENT OF HYPOXIA, CHF, LE EDEMA, AND UNSTEADY GAIT. TODAY, SHE IS ALERT AND ORIENTED, LYING IN BED ON MORNING ROUNDS. SHE CONTINUES WITH COMPLAINTS OF SHORTNESS OF BREATH AT TIMES AND WEAKNESS TODAY. SHE CONTINUES WITH SOME LOWER EXTREMITY SWELLING. ON EXAMINATION, HEART IS REGULAR IN RATE AND RHYTHM. BILATERAL LUNGS ARE NOTED WITH DIMINISHED LUNG SOUNDS THROUGHOUT. ABDOMEN IS ROUND, SOFT, AND NON-TENDER WITH NORMAL BOWEL SOUNDS NOTED IN ALL QUADRANTS. LOWER EXTREMITIES CONTINUE WITH TRACE. HER VITALS THIS MORNING ARE: 98.8-92-18-93%-139/74. LABS WERE OBTAINED. ABNORMAL LAB VALUES INCLUDE THE FOLLOWING: HGB 8.7, HCT 28.0, SODIUM 147, POTASSIUM 3.3, BUN 26, GLUCOSE 142, CALCIUM 8.3, AST 123, ALT 176, TOTAL PROTEIN 5.6, ALBUMIN 2.8. BLOOD CULTURES ARE PENDING. A CHEST XRAY WAS OBTAINED TODAY AND REVEALED: Continued cardiomegaly now with pulmonary venous congestion. SHE IS CURRENTLY RECEIVING IV ZOSYN, VIBRAMYCIN, LASIX 20MG IV DAILY, ALDACTONE 25MG PO DAILY, THE POTASSIUM AND MAGNESIUM PROTOCOLS, AND HER HOME MEDICATIONS WERE RESUMED. WE WILL CONTINUE WITH CURRENT PLAN OF CARE TODAY AND START HEMOCYTE 1 TABLET DAILY. WE WILL CONSULT GI. OTHERWISE, WE WILL FOLLOW UP WITH AM LABS AND CONTINUE TO MONITOR. - Past Medical Family Social History Past Med/Fam/Surg Hx: No changes since H&P Allergies: Allergies ibuprofen Allergy (Verified 08/26/19 22:47) - Review of Systems ROS: No change since H&P - Vital Signs and I&O's Vital Signs: Temperature 97.8 F Pulse Rate [Left Brachial] 98 Pulse Rate 97 Respiratory Rate 18 Blood Pressure [Left Arm] 124/74 Blood Pressure [Right Arm] 118/67 Blood Pressure 126/65 O2 Sat by Pulse Oximetry 94 Intake and Output: Intake & Output 08/30/19 08/31/19 09/01/19 09/02/19 11:59 11:59 11:59 11:59 Intake Total 1350 / 1350 940 / 940 935 / 935 780 / 780 Output Total 750 / 750 Balance 600 / 600 940 / 940 935 / 935 780 / 780 - Physical Exam Oriented: Normal Eyes: Normal Ear: Normal Nose: Normal Throat: Normal Respiratory: Generalized, Rales Cardiovascular: Edema (BLE EDEMA ). negative: S3, S4, Murmur : Normal Auscultation: Bowel Sounds: Normal Tenderness: Normal Skin: Normal Musculoskeletal: Motor Deficit (BLE WEAKNESS ) Psychiatric: Normal Mood Description: Calm Affect: Normal Speech Pattern: Clear, Appropriate - Laboratory and Diagnostics Result Diagrams: 09/01/19 04:27 09/01/19 11:52 Labs: 08/27/19 13:18 Blood Blood Culture - Final 08/27/19 13:10 Blood Blood Culture - Final Laboratory WBC 9.4 X10^3/uL (3.6-10.0) 09/01/19 04:27 RBC 3.64 X10^6/uL (3.5-5.4) 09/01/19 04:27 Hgb 8.7 g/dL (12.0-16.0) L 09/01/19 04:27 Hct 28.0 % (36.0-47.0) L 09/01/19 04:27 MCV 76.8 fL (80.0-100.0) L 09/01/19 04:27 MCH 24.0 pg (27.0-34.0) L 09/01/19 04:27 MCHC 31.3 g/dL (33.0-35.0) L 09/01/19 04:27 RDW 17.6 % (11.6-16.5) H 09/01/19 04:27 Plt Count 277 X10^3/uL (150.0-450.0) 09/01/19 04:27 Plt Count Comment Adequate (ADEQUATE) 09/01/19 04:27 MPV 8.8 fL (7.4-11.0) 09/01/19 04:27 Neut % (Auto) 83.2 % (42.0-75.0) H 09/01/19 04:27 Lymph % (Auto) 6.3 % (21.0-51.0) L 09/01/19 04:27 [place] % (Auto) 10.2 % (0.0-13.0) 09/01/19 04:27 Eos % (Auto) 0.2 % (0.9-2.9) L 09/01/19 04:27 Baso % (Auto) 0.1 % (0.2-1.0) L 09/01/19 04:27 Neut # (Auto) 7.8 x10^3/uL (2.2-4.8) H 09/01/19 04:27 Lymph # (Auto) 0.6 X10^3/uL (1.3-2.9) L 09/01/19 04:27 [place] # (Auto) 1.0 x10^3/uL (0.3-0.8) H 09/01/19 04:27 Eos # (Auto) 0.0 x10^3/uL (0.0-0.2) 09/01/19 04:27 Baso # (Auto) 0.0 X10^3/uL (0.0-0.1) 09/01/19 04:27 Absolute Nucleated RBC 0.7 /100WBC 09/01/19 04:27 Total Counted 100 08/30/19 04:44 Neutrophils % (Manual) 89 % (39-76) H 08/30/19 04:44 Band Neutrophils % 1 % (0-10) 08/29/19 06:18 Lymphocytes % (Manual) 5 % (13-43) L 08/30/19 04:44 Monocytes % (Manual) 6 % (4-9) 08/30/19 04:44 Plt Morphology Comment Normal (NORMAL) 09/01/19 04:27 RBC Morphology Abnormal (NORMAL) A 09/01/19 04:27 Hypochromasia Slight A 09/01/19 04:27 Anisocytosis Slight A 09/01/19 04:27 ESR 6 MM/HOUR (0-20) 08/27/19 13:10 D-Dimer 833 ng/mL (0-400) H* 08/26/19 23:15 Sample Site Rrad 09/01/19 00:41 ABG pH 7.450 (7.35-7.45) 09/01/19 00:41 ABG pCO2 64.0 mmHg (35.0-45.0) H* 09/01/19 00:41 ABG pO2 67.0 mmHg (80.0-100.0) L 09/01/19 00:41 ABG HCO3 44.5 mmol/L (22-26) H* 09/01/19 00:41 ABG O2 Saturation 94.0 % (90-100) 09/01/19 00:41 ABG Base Excess 17.3 mmol/L (-2.0-2.0) H 09/01/19 00:41 Dennis Test Pos 09/01/19 00:41 A-a Gradient 81.0 mmHg 09/01/19 00:41 FiO2 32.0 09/01/19 00:41 Blood Gas Comments Mirtha abg well-mtf 09/01/19 00:41 Sodium 147 mmol/L (136-145) H 09/01/19 04:27 Corrected Sodium 148 mmol/L (136-145) H 09/01/19 04:27 Potassium 3.8 mmol/L (3.5-5.1) 09/01/19 11:52 Chloride 104 mmol/L (98-107) 09/01/19 04:27 Carbon Dioxide 40.0 mmol/L (21-32) H 09/01/19 04:27 BUN 26 mg/dL (7-18) H 09/01/19 04:27 Creatinine 0.83 mg/dL (0.55-1.02) 09/01/19 04:27 Est GFR (MDRD) Af Amer > 60 (>60) 09/01/19 04:27 Est GFR (MDRD) Non-Af > 60 (>60) 09/01/19 04:27 Glucose 142 mg/dL (65-99) H 09/01/19 04:27 POC Glucose (mg/dL) 149 mg/dL (65-99) H 09/01/19 20:19 Calcium 8.3 mg/dL (8.5-10.1) L 09/01/19 04:27 Corrected Calcium 9.3 mg/dL (8.5-10.1) 09/01/19 04:27 Magnesium 1.9 mg/dL (1.7-2.9) 09/01/19 04:27 Iron 14 ug/dL (50-175) L 08/29/19 06:18 Transferrin 338 mg/dL (202-364) 08/29/19 06:18 Ferritin 47 ng/mL (8-252) 08/29/19 06:18 Total Bilirubin 0.60 mg/dL (0.2-1.0) 09/01/19 04:27 AST 123 Units/L (15-37) H 09/01/19 04:27 ALT 176 Units/L (12-78) H 09/01/19 04:27 Alkaline Phosphatase 98 Units/L (46-116) 09/01/19 04:27 Creatine Kinase 88 Units/L (26-192) 08/27/19 11:36 CK-MB (CK-2) 1.9 ng/mL (0-4.0) 08/27/19 11:36 CK/CKMB % Calc 2.2 % (<4) 08/27/19 11:36 Troponin I < 0.02 ng/mL (0-1.5) 08/27/19 11:36 B-Natriuretic Peptide 796 pg/mL (0-79) H* 08/27/19 13:10 Total Protein 5.6 g/dL (6.4-8.2) L 09/01/19 04:27 Albumin 2.8 g/dL (3.4-5.0) L 09/01/19 04:27 Globulin 2.8 g/dL (2.5-4.5) 09/01/19 04:27 Albumin/Globulin Ratio 1.0 Ratio (1.1-2.1) L 09/01/19 04:27 Vitamin B12 1090 pg/mL (193-986) H 08/29/19 06:18 Folate 7.4 ng/mL (>8.6) L 08/29/19 06:18 Specimen Type Clean catch urine 08/27/19 11:24 Urine Color Pale yellow (YELLOW) 08/27/19 11:24 Urine Appearance Clear (CLEAR) 08/27/19 11:24 Urine pH 7.0 (5.0 - 8.0) 08/27/19 11:24 Ur Specific [place] 1.015 (1.000-1.030) 08/27/19 11:24 Urine Protein Negative (NEGATIVE) 08/27/19 11:24 Urine Glucose (UA) Negative (NEGATIVE) 08/27/19 11:24 Urine Ketones Negative (NEGATIVE) 08/27/19 11:24 Urine Occult Blood Negative (NEGATIVE) 08/27/19 11:24 Urine Nitrite Negative (NEGATIVE) 08/27/19 11:24 Urine Bilirubin Negative (NEGATIVE) 08/27/19 11:24 Urine Urobilinogen Normal (NORMAL) 08/27/19 11:24 Ur Leukocyte Esterase Negative (NEGATIVE) 08/27/19 11:24 Stool Description 10g. unformed/black 09/01/19 03:22 Stl Occult Blood (IFOB) Positive (NEGATIVE) A 09/01/19 03:22 - Plan (1) CHF exacerbation Status: Acute Qualifiers: Heart failure type: unspecified Qualified Code(s): I50.9 - Heart failure, unspecified Plan: ECHO: mild LVH, decreased global wall motion, EF 33%, severe TR. Severe pulmonary HTN, dilated IVC. No prev echo to compare. Continue diuresis with Lasix IV and aldactone, wean oxygen as tolerated. Continue asa, statin, losartan, metoprolol succinate. Strict I/Os. Repeat CXR in the AM. (2) Hypoxia Status: Acute (3) Leg edema Status: Acute Plan: improving, Doppler negative for DVT. Continue diuresis (4) Dyspnea Status: Acute Qualifiers: Dyspnea type: shortness of breath Qualified Code(s): R06.02 - Shortness of breath; R06.00 - Dyspnea, unspecified; R06.01 - Orthopnea Plan: due to CHF exacerbation and pneumonitis. D-dimer elevated, CT negative for PE. (5) Anemia Status: Acute Qualifiers: Anemia type: unspecified type Qualified Code(s): D64.9 - Anemia, unspecified Plan: Hgb 9.4, low iron, iron supplements. (6) Hypertension Status: Acute Qualifiers: Hypertension type: essential hypertension Qualified Code(s): I10 - Essential (primary) hypertension Plan: resume home medications
[2019-09-01] MEDS: ZOCOR TAB 40 MG PO SCH (21:45)
[2019-09-02] MEDS: ZOSYN VIAL 3.375 GRAMS 3.375 G in NS 100 ML IV + SPIKE MINIBAG* 100 ML IV SCH ×3 (05:25→21:00)
[2019-09-02 05:39] LABS: BASOPHILS % (AUTO) 0.1 % (0.2-1.0); EOSINOPHILS # (AUTO) 0.2 x10^3/uL (0.0-0.2); EOSINOPHILS % (AUTO) 2.5 % (0.9-2.9); HEMATOCRIT 29.6 % (36.0-47.0); HEMOGLOBIN 9.2 g/dL (12.0-16.0); LYMPHOCYTES # (AUTO) 0.7 X10^3/uL (1.3-2.9); LYMPHOCYTES % (AUTO) 8.1 % (21.0-51.0); MEAN CORPUSCULAR HEMOGLOBIN 24.2 pg (27.0-34.0); MEAN CORPUSCULAR HGB CONC 31.1 g/dL (33.0-35.0); MEAN CORPUSCULAR VOLUME 77.9 fL (80.0-100.0); MEAN PLATELET VOLUME 8.9 fL (7.4-11.0); MONOCYTES # (AUTO) 0.9 x10^3/uL (0.3-0.8); MONOCYTES % (AUTO) 9.5 % (0.0-13.0); NEUTROPHILS # (AUTO) 7.4 x10^3/uL (2.2-4.8); NEUTROPHILS % (AUTO) 79.8 % (42.0-75.0); PLATELET COUNT 276 X10^3/uL (150.0-450.0); RED CELL DISTRIBUTION WIDTH 17.9 % (11.6-16.5); WHITE BLOOD COUNT 9.2 X10^3/uL (3.6-10.0)
[2019-09-02 05:57] LABS: ALANINE AMINOTRANSFERASE 146 Units/L (12-78); ALBUMIN 2.7 g/dL (3.4-5.0); ALKALINE PHOSPHATASE 102 Units/L (46-116); ASPARTATE AMINO TRANSFERASE 81 Units/L (15-37); BLOOD UREA NITROGEN 22 mg/dL (7-18); CALCIUM 8.6 mg/dL (8.5-10.1); CARBON DIOXIDE 39.5 mmol/L (21-32); CHLORIDE 105 mmol/L (98-107); COR CA(FOR HYPOALB) 9.6 mg/dL (8.5-10.1); COR NA(FOR HYPERGLY) 146 mmol/L (136-145); CREATININE 0.73 mg/dL (0.55-1.02); SODIUM 145 mmol/L (136-145); TOTAL PROTEIN 5.8 g/dL (6.4-8.2); eGFR NON BLACK RACES > 60 (>60)
[2019-09-02 05:59] LABS: ANISOCYTOSIS SLIGHT; HYPOCHROMASIA SLIGHT; PLATELET MORPHOLOGY COMMENT NORMAL (NORMAL)
--- NOTE | 2019-09-02 06:18 | RAD ---
HISTORY: Shortness of breathStudy: Chest AP portableComparison: 09/01/2019Findings:The heart remains enlarged. No congestive heart failure is noted. No acute alveolar infiltrates or pleural effusions are identified. The bony thorax is unremarkable.IMPRESSION: Continued marked cardiomegaly but without congestive heart failureNo infiltratesReported By:
[2019-09-02] MEDS: CARDIZEM CD 120 MG 24-HR PO SCH (09:16)
[2019-09-02] MEDS: TOPROL XL PO SCH ×2 (09:16→20:51)
[2019-09-02] MEDS: SYNTHROID 50 mcg TAB PO SCH (09:16)
[2019-09-02] MEDS: CORDARONE TAB 200 MG PO SCH (09:16)
[2019-09-02] MEDS ORDERED: STERILE WATER IRRIGATION IR ONE (10:04)
--- NOTE | 2019-09-02 12:18 | PCM.PROG ---
Progress Note - Progress Note for Day of Date of Exam: 09/02/19 - Subjective Subjective: WAS ADMITTED FOR TREATMENT OF HYPOXIA, CHF, LE EDEMA, AND UNSTEADY GAIT. TODAY, SHE IS ALERT AND ORIENTED, LYING IN BED ON MORNING ROUNDS. SHE CONTINUES WITH COMPLAINTS OF WEAKNESS TODAY. LOWER EXTREMITY SWELLING HAS DECREASED. ON EXAMINATION, HEART IS REGULAR IN RATE AND RHYTHM. BILATERAL LUNGS ARE NOTED WITH DIMINISHED LUNG SOUNDS THROUGHOUT. ABDOMEN IS ROUND, SOFT, AND NON-TENDER WITH NORMAL BOWEL SOUNDS NOTED IN ALL QUADRANTS. LOWER EXTREMITIES CONTINUE WITH TRACE EDEMA. HER VITALS THIS MORNING ARE: 98.9-94-18-94%-147/65. LABS WERE OBTAINED. ABNORMAL LAB VALUES INCLUDE THE FOLLOWING: HGB 9.2, HCT 29.6, CORRECTED SODIUM 146, CARBON DIOXIDE 39.5, BUN 22, GLUCOSE 147, AST 81, ALT 146, TOTAL PROTEIN 5.8, ALBUMIN 2.7. BLOOD CULTURES ARE PENDING. A CHEST XRAY WAS OBTAINED TODAY AND REVEALED: Continued cardiomegaly now with pulmonary venous congestion. SHE IS CURRENTLY RECEIVING IV ZOSYN, VIBRAMYCIN, HEMOCYTE, LASIX 20MG IV DAILY, ALDACTONE 25MG PO DAILY, THE POTASSIUM AND MAGNESIUM PROTOCOLS, AND HER HOME MEDICATIONS WERE RESUMED. WE WILL CONTINUE WITH CURRENT PLAN OF CARE TODAY. OTHERWISE, WE WILL FOLLOW UP WITH AM LABS AND CONTINUE TO MONITOR. - Past Medical Family Social History Past Med/Fam/Surg Hx: No changes since H&P Allergies: Allergies ibuprofen Allergy (Verified 08/26/19 22:47) - Review of Systems ROS: No change since H&P - Vital Signs and I&O's Vital Signs: Temperature 98.3 F Pulse Rate [Left Brachial] 97 Pulse Rate 97 Respiratory Rate 20 Blood Pressure [Left Arm] 147/96 Blood Pressure [Right Arm] 136/72 Blood Pressure 126/65 O2 Sat by Pulse Oximetry 94 Intake and Output: Intake & Output 08/31/19 09/01/19 09/02/19 09/03/19 11:59 11:59 11:59 11:59 Intake Total 940 / 940 935 / 935 1860 / 1860 Balance 940 / 940 935 / 935 1860 / 1860 - Physical Exam Oriented: Normal Eyes: Normal Ear: Normal Nose: Normal Throat: Normal Respiratory: Generalized, Rales Cardiovascular: Edema (BLE EDEMA ). negative: S3, S4, Murmur : Normal Auscultation: Bowel Sounds: Normal Tenderness: Normal Skin: Normal Musculoskeletal: Motor Deficit (BLE WEAKNESS ) Psychiatric: Normal Mood Description: Calm Affect: Normal Speech Pattern: Clear, Appropriate - Laboratory and Diagnostics Result Diagrams: 09/02/19 04:55 09/02/19 04:55 Labs: 08/27/19 13:18 Blood Blood Culture - Final 08/27/19 13:10 Blood Blood Culture - Final Laboratory WBC 9.2 X10^3/uL (3.6-10.0) 09/02/19 04:55 RBC 3.80 X10^6/uL (3.5-5.4) 09/02/19 04:55 Hgb 9.2 g/dL (12.0-16.0) L 09/02/19 04:55 Hct 29.6 % (36.0-47.0) L 09/02/19 04:55 MCV 77.9 fL (80.0-100.0) L 09/02/19 04:55 MCH 24.2 pg (27.0-34.0) L 09/02/19 04:55 MCHC 31.1 g/dL (33.0-35.0) L 09/02/19 04:55 RDW 17.9 % (11.6-16.5) H 09/02/19 04:55 Plt Count 276 X10^3/uL (150.0-450.0) 09/02/19 04:55 Plt Count Comment Adequate (ADEQUATE) 09/02/19 04:55 MPV 8.9 fL (7.4-11.0) 09/02/19 04:55 Neut % (Auto) 79.8 % (42.0-75.0) H 09/02/19 04:55 Lymph % (Auto) 8.1 % (21.0-51.0) L 09/02/19 04:55 [place] % (Auto) 9.5 % (0.0-13.0) 09/02/19 04:55 Eos % (Auto) 2.5 % (0.9-2.9) 09/02/19 04:55 Baso % (Auto) 0.1 % (0.2-1.0) L 09/02/19 04:55 Neut # (Auto) 7.4 x10^3/uL (2.2-4.8) H 09/02/19 04:55 Lymph # (Auto) 0.7 X10^3/uL (1.3-2.9) L 09/02/19 04:55 [place] # (Auto) 0.9 x10^3/uL (0.3-0.8) H 09/02/19 04:55 Eos # (Auto) 0.2 x10^3/uL (0.0-0.2) 09/02/19 04:55 Baso # (Auto) 0.0 X10^3/uL (0.0-0.1) 09/02/19 04:55 Absolute Nucleated RBC 1.3 /100WBC 09/02/19 04:55 Total Counted 100 08/30/19 04:44 Neutrophils % (Manual) 89 % (39-76) H 08/30/19 04:44 Band Neutrophils % 1 % (0-10) 08/29/19 06:18 Lymphocytes % (Manual) 5 % (13-43) L 08/30/19 04:44 Monocytes % (Manual) 6 % (4-9) 08/30/19 04:44 Plt Morphology Comment Normal (NORMAL) 09/02/19 04:55 RBC Morphology Abnormal (NORMAL) A 09/02/19 04:55 Hypochromasia Slight A 09/02/19 04:55 Anisocytosis Slight A 09/02/19 04:55 ESR 6 MM/HOUR (0-20) 08/27/19 13:10 D-Dimer 833 ng/mL (0-400) H* 08/26/19 23:15 Sample Site Rrad 09/01/19 00:41 ABG pH 7.450 (7.35-7.45) 09/01/19 00:41 ABG pCO2 64.0 mmHg (35.0-45.0) H* 09/01/19 00:41 ABG pO2 67.0 mmHg (80.0-100.0) L 09/01/19 00:41 ABG HCO3 44.5 mmol/L (22-26) H* 09/01/19 00:41 ABG O2 Saturation 94.0 % (90-100) 09/01/19 00:41 ABG Base Excess 17.3 mmol/L (-2.0-2.0) H 09/01/19 00:41 Dennis Test Pos 09/01/19 00:41 A-a Gradient 81.0 mmHg 09/01/19 00:41 FiO2 32.0 09/01/19 00:41 Blood Gas Comments Mirtha abg well-mtf 09/01/19 00:41 Sodium 145 mmol/L (136-145) 09/02/19 04:55 Corrected Sodium 146 mmol/L (136-145) H 09/02/19 04:55 Potassium 3.6 mmol/L (3.5-5.1) 09/02/19 04:55 Chloride 105 mmol/L (98-107) 09/02/19 04:55 Carbon Dioxide 39.5 mmol/L (21-32) H 09/02/19 04:55 BUN 22 mg/dL (7-18) H 09/02/19 04:55 Creatinine 0.73 mg/dL (0.55-1.02) 09/02/19 04:55 Est GFR (MDRD) Af Amer > 60 (>60) 09/02/19 04:55 Est GFR (MDRD) Non-Af > 60 (>60) 09/02/19 04:55 Glucose 147 mg/dL (65-99) H 09/02/19 04:55 POC Glucose (mg/dL) 146 mg/dL (65-99) H 09/02/19 11:02 Calcium 8.6 mg/dL (8.5-10.1) 09/02/19 04:55 Corrected Calcium 9.6 mg/dL (8.5-10.1) 09/02/19 04:55 Magnesium 1.9 mg/dL (1.7-2.9) 09/01/19 04:27 Iron 14 ug/dL (50-175) L 08/29/19 06:18 Transferrin 338 mg/dL (202-364) 08/29/19 06:18 Ferritin 47 ng/mL (8-252) 08/29/19 06:18 Total Bilirubin 0.60 mg/dL (0.2-1.0) 09/02/19 04:55 AST 81 Units/L (15-37) H 09/02/19 04:55 ALT 146 Units/L (12-78) H 09/02/19 04:55 Alkaline Phosphatase 102 Units/L (46-116) 09/02/19 04:55 Creatine Kinase 88 Units/L (26-192) 08/27/19 11:36 CK-MB (CK-2) 1.9 ng/mL (0-4.0) 08/27/19 11:36 CK/CKMB % Calc 2.2 % (<4) 08/27/19 11:36 Troponin I < 0.02 ng/mL (0-1.5) 08/27/19 11:36 B-Natriuretic Peptide 796 pg/mL (0-79) H* 08/27/19 13:10 Total Protein 5.8 g/dL (6.4-8.2) L 09/02/19 04:55 Albumin 2.7 g/dL (3.4-5.0) L 09/02/19 04:55 Globulin 3.1 g/dL (2.5-4.5) 09/02/19 04:55 Albumin/Globulin Ratio 0.9 Ratio (1.1-2.1) L 09/02/19 04:55 Vitamin B12 1090 pg/mL (193-986) H 08/29/19 06:18 Folate 7.4 ng/mL (>8.6) L 08/29/19 06:18 Specimen Type Clean catch urine 08/27/19 11:24 Urine Color Pale yellow (YELLOW) 08/27/19 11:24 Urine Appearance Clear (CLEAR) 08/27/19 11:24 Urine pH 7.0 (5.0 - 8.0) 08/27/19 11:24 Ur Specific [place] 1.015 (1.000-1.030) 08/27/19 11:24 Urine Protein Negative (NEGATIVE) 08/27/19 11:24 Urine Glucose (UA) Negative (NEGATIVE) 08/27/19 11:24 Urine Ketones Negative (NEGATIVE) 08/27/19 11:24 Urine Occult Blood Negative (NEGATIVE) 08/27/19 11:24 Urine Nitrite Negative (NEGATIVE) 08/27/19 11:24 Urine Bilirubin Negative (NEGATIVE) 08/27/19 11:24 Urine Urobilinogen Normal (NORMAL) 08/27/19 11:24 Ur Leukocyte Esterase Negative (NEGATIVE) 08/27/19 11:24 Stool Description 10g. unformed/black 09/01/19 03:22 Stl Occult Blood (IFOB) Positive (NEGATIVE) A 09/01/19 03:22 - Plan (1) CHF exacerbation Status: Acute Qualifiers: Heart failure type: unspecified Qualified Code(s): I50.9 - Heart failure, unspecified Plan: ECHO: mild LVH, decreased global wall motion, EF 33%, severe TR. Severe pulmonary HTN, dilated IVC. No prev echo to compare. Continue diuresis with Lasix IV and aldactone, wean oxygen as tolerated. Continue asa, statin, losartan, metoprolol succinate. Strict I/Os. Repeat CXR in the AM. (2) Hypoxia Status: Acute (3) Leg edema Status: Acute Plan: improving, Doppler negative for DVT. Continue diuresis (4) Dyspnea Status: Acute Qualifiers: Dyspnea type: shortness of breath Qualified Code(s): R06.02 - Shortness of breath; R06.00 - Dyspnea, unspecified; R06.01 - Orthopnea Plan: due to CHF exacerbation and pneumonitis. D-dimer elevated, CT negative for PE. (5) Anemia Status: Acute Qualifiers: Anemia type: unspecified type Qualified Code(s): D64.9 - Anemia, unspecified Plan: Hgb 9.4, low iron, iron supplements. (6) Hypertension Status: Acute Qualifiers: Hypertension type: essential hypertension Qualified Code(s): I10 - Essential (primary) hypertension Plan: resume home medications
[2019-09-02] MEDS ORDERED: DIPRIVAN VIAL 20 ML ONE (12:39)
[2019-09-02] MEDS: ASPIRIN PO SCH (13:53)
[2019-09-02] MEDS: ELIQUIS PO SCH ×2 (13:53→20:50)
[2019-09-02] MEDS: SINGULAIR TAB 10 MG PO SCH (13:53)
[2019-09-02] MEDS: LASIX IVP SCH (13:53)
[2019-09-02] MEDS: PriLOSEC PO SCH (13:54)
[2019-09-02] MEDS: NYSTATIN POWDER TOP SCH ×2 (13:54→20:51)
[2019-09-02] MEDS: DEPAKOTE D.R. TAB PO SCH (13:54)
[2019-09-02] MEDS: HEMOCYTE-PLUS PO SCH (13:54)
[2019-09-02] MEDS: ALDACTONE TAB 25 MG PO SCH (13:54)
[2019-09-02] MEDS: VIBRAMYCIN PO SCH ×2 (13:54→20:51)
[2019-09-02] MEDS: PROzac PO SCH (13:54)
[2019-09-02] MEDS: HumuLIN R SUBCUT PRN (15:36)
[2019-09-02] MEDS: SNACK - Diabetic Appropriate PO SCH (20:32)
[2019-09-02] MEDS: COZAAR PO SCH (20:50)
[2019-09-02] MEDS: ZOCOR TAB 40 MG PO SCH (20:51)
[2019-09-03] MEDS: ZOSYN VIAL 3.375 GRAMS 3.375 G in NS 100 ML IV + SPIKE MINIBAG* 100 ML IV SCH (05:24)
[2019-09-03 06:11] LABS: BASOPHILS % (AUTO) 0.3 % (0.2-1.0); EOSINOPHILS # (AUTO) 0.4 x10^3/uL (0.0-0.2); EOSINOPHILS % (AUTO) 4.2 % (0.9-2.9); HEMATOCRIT 28.5 % (36.0-47.0); LYMPHOCYTES # (AUTO) 0.8 X10^3/uL (1.3-2.9); LYMPHOCYTES % (AUTO) 9.1 % (21.0-51.0); MEAN CORPUSCULAR HEMOGLOBIN 24.2 pg (27.0-34.0); MEAN CORPUSCULAR HGB CONC 31.5 g/dL (33.0-35.0); MEAN PLATELET VOLUME 8.5 fL (7.4-11.0); MONOCYTES # (AUTO) 0.8 x10^3/uL (0.3-0.8); MONOCYTES % (AUTO) 9.1 % (0.0-13.0); NEUTROPHILS # (AUTO) 6.8 x10^3/uL (2.2-4.8); NEUTROPHILS % (AUTO) 77.3 % (42.0-75.0); PLATELET COUNT 237 X10^3/uL (150.0-450.0); WHITE BLOOD COUNT 8.8 X10^3/uL (3.6-10.0)
[2019-09-03 06:24] LABS: ALANINE AMINOTRANSFERASE 97 Units/L (12-78); ALBUMIN 2.5 g/dL (3.4-5.0); ALKALINE PHOSPHATASE 103 Units/L (46-116); ASPARTATE AMINO TRANSFERASE 37 Units/L (15-37); BLOOD UREA NITROGEN 19 mg/dL (7-18); CALCIUM 8.5 mg/dL (8.5-10.1); CARBON DIOXIDE 38.3 mmol/L (21-32); CHLORIDE 105 mmol/L (98-107); COR CA(FOR HYPOALB) 9.7 mg/dL (8.5-10.1); COR NA(FOR HYPERGLY) 146 mmol/L (136-145); CREATININE 0.72 mg/dL (0.55-1.02); MAGNESIUM 1.6 mg/dL (1.7-2.9); SODIUM 145 mmol/L (136-145); TOTAL PROTEIN 5.4 g/dL (6.4-8.2); eGFR NON BLACK RACES > 60 (>60)
--- NOTE | 2019-09-03 06:38 | RAD ---
HISTORY: Shortness of breathStudy: Chest AP portableComparison: 09/02/2019Findings:The heart remains markedly enlarged. No congestive heart failure is noted. No acute alveolar infiltrates or pleural effusions are identified. The bony thorax is unremarkable.IMPRESSION: Continued marked cardiomegaly without congestive heart failureNo definite infiltratesReported By:
[2019-09-03 07:01] LABS: HYPOCHROMASIA SLIGHT; PLATELET MORPHOLOGY COMMENT NORMAL (NORMAL)
[2019-09-03] MEDS: LASIX IVP SCH (09:00)
[2019-09-03] MEDS: ELIQUIS PO SCH (09:01)
[2019-09-03] MEDS: ALDACTONE TAB 25 MG PO SCH (09:01)
[2019-09-03] MEDS: CARDIZEM CD 120 MG 24-HR PO SCH (09:01)
[2019-09-03] MEDS: HEMOCYTE-PLUS PO SCH (09:01)
[2019-09-03] MEDS: ASPIRIN PO SCH (09:01)
[2019-09-03] MEDS: TOPROL XL PO SCH (09:01)
[2019-09-03] MEDS: DEPAKOTE D.R. TAB PO SCH (09:01)
[2019-09-03] MEDS: VIBRAMYCIN PO SCH (09:01)
[2019-09-03] MEDS: NYSTATIN POWDER TOP SCH (09:02)
[2019-09-03] MEDS: SINGULAIR TAB 10 MG PO SCH (09:02)
[2019-09-03] MEDS: PriLOSEC PO SCH (09:02)
[2019-09-03] MEDS: CORDARONE TAB 200 MG PO SCH (09:02)
[2019-09-03] MEDS: SYNTHROID 50 mcg TAB PO SCH (09:02)
[2019-09-03] MEDS: PROzac PO SCH (09:02)
[2019-09-03 09:34] VITALS: BP 122/85
== END 2019-09-03 11:50 | DRG 291 ==
LOC: ER 22:05 → ICU 08-27 05:00 → MED/SURG 08-29 15:05
PROVIDERS: ADMIT Internal Medicine; ATTEND Internal Medicine
DX: D50.8 Other iron deficiency anemias; I50.9 Heart failure, unspecified; R52 Pain, unspecified; E11.65 Type 2 diabetes mellitus with hyperglycemia; J18.9 Pneumonia, unspecified organism; R60.0 Localized edema; Z99.81 Dependence on supplemental oxygen; K20.8 Other esophagitis; Z79.01 Long term (current) use of anticoagulants; R94.31 Abnormal electrocardiogram [ECG] [EKG]; I11.0 Hypertensive heart disease with heart failure; I48.91 Unspecified atrial fibrillation; I27.20 Pulmonary hypertension, unspecified; J44.9 Chronic obstructive pulmonary disease, unspecified; R06.02 Shortness of breath; R26.89 Other abnormalities of gait and mobility; K59.09 Other constipation; J90 Pleural effusion, not elsewhere classified
CPT/HCPCS: 36415; 36600; 71010; 71045; 71275; 80048; 80053; 81003; 82270; 82550; 82553; 82607; 82728; 82746; 82803; 83540; 83735; 83880; 84132; 84466; 84484; 85025; 85378; 85652; 87040; 93005; 93306; 93970; 94640; 96365; 96374; 96375; 97110; 97112; 97116; 97162; 97167; 97530; 97535; 99100; 99284; A4216; A4217; A4222; J1650; J1815; J1940; J1956; J2543; J2704; J2930; J3475; J7040; J7050; S0119; S0181

== ENCOUNTER 2022-01-29 14:07 | Observation (INO) ==
--- NOTE | 2022-01-29 14:20 | DR.SOBA ---
HPI Time Seen Time Seen by Provider: 01/29/22 14:18 Complaints Chief Complaint Doctors Comments: 86 y/o female brought in via EMS. Pt was sitting at home, states her chest "went crazy". Denies chest pain/pressure, denies palpitations. States she feels she can't catch her breath. Denies cough (usually has a dry cough), fever, chills, diaphoresis, nausea or vomiting. Denies recent illness, recent long travel. Pt has O2 at home, for CHF, uses intermittently. COVID-19 Coronavirus risk:travel/contact w/high risk person: No Has patient experienced Coronavirus symptoms: No Reviewed Nurses Notes Reviewed: Yes Source History Provided: Patient and EMS Mode of Arrival Mode of Arrival: EMS PMH PMH Past Medical History: CHF, Coronary Artery Disease, Diabetes and Hypertension Past Surgical History: Yes Surgical History: Ortho Surgery Family History Family Medical History: Cancer Social History Do you use any recreational Drugs:: No Travel Risk Coronavirus risk:travel/contact w/high risk person: No Has patient experienced Coronavirus symptoms: No ROS Review of Systems Constitutional: No Symptoms Reported Eyes: No Symptoms Reported ENTM: No Symptoms Reported Respiratoy: Short of Breath Cardiovascular: No Symptoms Reported Gastrointestinal/Abdominal: No Symptoms Reported Genitourinary: No Symptoms Reported Neurological: No Symptoms Reported Musculoskeletal: No Symptoms Reported Integumentary: No Symptoms Reported Hematologic/Lymphatic: No Symptoms Reported Psychiatric: No Symptoms Reported All Other Systems: Reviewed and Negative PE Vital Signs Vitals: Temperature 98.6 F Pulse Rate 59 Respiratory Rate 29 Blood Pressure [Left Arm] 122/85 Blood Pressure 131/68 O2 Sat by Pulse Oximetry 100 General Limitations: No Limitations General Appearance: Alert, Anxious and In Distress (tachypnea) Head Head Exam: Normal Inspection Eyes Eye exam: PERRL and EOMI ENT ENT Exam: Normal Exam and Mucous Membranes Moist Neck Neck Exam: Normal Inspection and Full ROM Chest Chest Inspection: Normal Inspection Respiratory Respiratory Exam: Normal Lung Sounds Bilat; negative Accessory Muscle Use and Respiratory Distress Respiratory Exam: Bilateral: Clear to Auscultation Cardiovascular Cardiovascular Exam: Regular Rate, Normal Rhythm and Normal Heart Sounds Abdominal Exam Abdominal Exam: Normal Inspection, Normal Bowel Sounds and Soft; negative T enderness Extremities Extremities Exam: Normal Inspection and Full ROM; negative Tenderness and Edema Back Back Exam: Normal Inspection Neurologic Neurological Exam: Alert, Oriented X3 and CN II-XII Intact; negative Motor Sensory Deficit Psychiatric Psychiatric Exam: Normal Affect and Anxious Skin Skin Exam: Warm and Dry MDM Differential Diagnosis Differential Diagnosis: Anxiety, CHF, Hyperventilation, Mycardial Infarction, Pulmonary embolism and Respiratory Insufficiency COURSE Treatment Treatment: 86 y/o female, presents with sudden dyspnea at rest. PE benign, pulse ox 98-99% on RA, but does appear winded with talking. W/u initiated. 1700 - w/u overall acceptable. Has normal CBC, chemistries, BNP, cardiac enzymes and d- dimer. CXR without acute abnormalities. CTA performed in view of her symptoms, was negative. Pt was feeling better at rest. RN sat her up, to go to bathroom, became dizzy. Recommend observation admission for further evaluation. Discussed with Dr Davis, accepts the observation. ROR Labs Reviewed Laboratory Results Reviewed?: Yes Result Diagrams: 01/29/22 14:35 01/29/22 14:35 Laboratory: WBC 5.1 X10^3/uL (3.6-10.0) 01/29/22 14:35 RBC 4.62 X10^6/uL (3.5-5.4) 01/29/22 14:35 Hgb 14.2 g/dL (12.0-16.0) 01/29/22 14:35 Hct 41.7 % (36.0-47.0) 01/29/22 14:35 MCV 90.1 fL (80.0-100.0) 01/29/22 14:35 MCH 30.7 pg (27.0-34.0) 01/29/22 14:35 MCHC 34.0 g/dL (33.0-35.0) 01/29/22 14:35 RDW 14.5 % (11.6-16.5) 01/29/22 14:35 Plt Count 207 X10^3/uL (150.0-450.0) 01/29/22 14:35 MPV 8.9 fL (7.4-11.0) 01/29/22 14:35 Neut % (Auto) 55.8 % (42.0-75.0) 01/29/22 14:35 Lymph % (Auto) 29.3 % (21.0-51.0) 01/29/22 14:35 [place] % (Auto) 9.0 % (0.0-13.0) 01/29/22 14:35 Eos % (Auto) 4.5 % (0.9-2.9) H 01/29/22 14:35 Baso % (Auto) 1.4 % (0.2-1.0) H 01/29/22 14:35 Neut # (Auto) 2.9 x10^3/uL (2.2-4.8) 01/29/22 14:35 Lymph # (Auto) 1.5 X10^3/uL (1.3-2.9) 01/29/22 14:35 [place] # (Auto) 0.5 x10^3/uL (0.3-0.8) 01/29/22 14:35 Eos # (Auto) 0.2 x10^3/uL (0.0-0.2) 01/29/22 14:35 Baso # (Auto) 0.1 X10^3/uL (0.0-0.1) 01/29/22 14:35 Absolute Nucleated RBC 0.1 /100WBC 01/29/22 14:35 D-Dimer 0.49 ug/ml (0.0-0.57) 01/29/22 14:35 Sodium 143 mmol/L (136-145) 01/29/22 14:35 Corrected Sodium 144 mmol/L (136-145) 01/29/22 14:35 Potassium 3.6 mmol/L (3.5-5.1) 01/29/22 14:35 Chloride 104 mmol/L (98-107) 01/29/22 14:35 Carbon Dioxide 25.1 mmol/L (21-32) 01/29/22 14:35 BUN 19 mg/dL (7-18) H 01/29/22 14:35 Creatinine 0.99 mg/dL (0.55-1.02) 01/29/22 14:35 Est GFR (MDRD) Af Amer > 60 (>60) 01/29/22 14:35 Est GFR (MDRD) Non-Af 57 (>60) L 01/29/22 14:35 Glucose 145 mg/dL (65-99) H 01/29/22 14:35 Calcium 9.8 mg/dL (8.5-10.1) 01/29/22 14:35 Creatine Kinase 60 Units/L (26-192) 01/29/22 14:35 CK-MB (CK-2) 0.8 ng/mL (0-4.0) 01/29/22 14:35 CK/CKMB % Calc 1.3 % (<4) 01/29/22 14:35 Troponin I High Sens 7.6 ng/L (4.0-60.0) 01/29/22 14:35 B-Natriuretic Peptide 76.5 pg/mL (0-79) 01/29/22 14:35 Specimen Type Clean catch urine 01/29/22 16:55 Urine Color Yellow (YELLOW) 01/29/22 16:55 Urine Appearance Clear (CLEAR) 01/29/22 16:55 Urine pH 7.0 (5.0 - 8.0) 01/29/22 16:55 Ur Specific [place] 1.005 (1.000-1.030) 01/29/22 16:55 Urine Protein Negative (NEGATIVE) 01/29/22 16:55 Urine Glucose (UA) Negative (NEGATIVE) 01/29/22 16:55 Urine Ketones Negative (NEGATIVE) 01/29/22 16:55 Urine Blood Negative (NEGATIVE) 01/29/22 16:55 Urine Nitrite Negative (NEGATIVE) 01/29/22 16:55 Urine Bilirubin Negative (NEGATIVE) 01/29/22 16:55 Urine Urobilinogen Normal (NORMAL) 01/29/22 16:55 Ur Leukocyte Esterase Negative (NEGATIVE) 01/29/22 16:55 XRAY XRAY Interpreted by: Both X-ray Results: CXR and CTA chest both acceptable. EKG Rate: 53 [place]: Normal Rhythm: SB Block: None Hypertrophy: None ST: Nonsp Opioid Opioid Risk Tool Age (John box if 16-45): No History of Preadolescent Sexual Abuse: No Total: 0 Total Score Risk Category: Low Risk Copyright: Valdemar MOTTA predicting aberrant behaviors Diagnosis Discharge Problem: Acute dyspnea
[2022-01-29] MEDS ORDERED: ATIVAN INJ 2 MG VIAL IVP ONE (14:21)
[2022-01-29] MEDS ORDERED: ATIVAN INJ 2 MG VIAL ONE (14:28)
[2022-01-29 14:47] LABS: BASOPHILS # (AUTO) 0.1 X10^3/uL (0.0-0.1); BASOPHILS % (AUTO) 1.4 % (0.2-1.0); EOSINOPHILS # (AUTO) 0.2 x10^3/uL (0.0-0.2); EOSINOPHILS % (AUTO) 4.5 % (0.9-2.9); HEMATOCRIT 41.7 % (36.0-47.0); HEMOGLOBIN 14.2 g/dL (12.0-16.0); LYMPHOCYTES # (AUTO) 1.5 X10^3/uL (1.3-2.9); LYMPHOCYTES % (AUTO) 29.3 % (21.0-51.0); MEAN CORPUSCULAR HEMOGLOBIN 30.7 pg (27.0-34.0); MEAN CORPUSCULAR VOLUME 90.1 fL (80.0-100.0); MEAN PLATELET VOLUME 8.9 fL (7.4-11.0); MONOCYTES # (AUTO) 0.5 x10^3/uL (0.3-0.8); NEUTROPHILS # (AUTO) 2.9 x10^3/uL (2.2-4.8); NEUTROPHILS % (AUTO) 55.8 % (42.0-75.0); RED BLOOD COUNT 4.62 X10^6/uL (3.5-5.4); RED CELL DISTRIBUTION WIDTH 14.5 % (11.6-16.5); WHITE BLOOD COUNT 5.1 X10^3/uL (3.6-10.0)
[2022-01-29 14:57] LABS: BLOOD UREA NITROGEN 19 mg/dL (7-18); CALCIUM 9.8 mg/dL (8.5-10.1); CARBON DIOXIDE 25.1 mmol/L (21-32); CHLORIDE 104 mmol/L (98-107); COR NA(FOR HYPERGLY) 144 mmol/L (136-145); CREATININE 0.99 mg/dL (0.55-1.02); SODIUM 143 mmol/L (136-145); eGFR NON BLACK RACES 57 (>60)
[2022-01-29 15:18] LABS: CKMB % 1.3 % (<4); CREATINE KINASE 60 Units/L (26-192); CREATINE KINASE MB 0.8 ng/mL (0-4.0)
--- NOTE | 2022-01-29 15:35 | RAD ---
HISTORYPt c/o sudden onset of "breathing heavy". She denies painSTUDYCHEST, 1 VIEWCOMPARISONDeceer 2018[facility]QUEK[facility], frontal projection, 1 imageFINDINGSMild cardiomegaly.No focal airspace disease.No pleural effusion.No pneumothorax.No acute osseous abnormality.IMPRESSIONNo imaging findings of acute cardiopulmonary disease.Electronically signed by: Stanley Mccoy (January 29, 2022 15:33:51)
--- NOTE | 2022-01-29 16:12 | CT ---
HISTORYSUDDEN DYSPNEASTUDYCTA CHESTCOMPARISONDecember 2018 and chest radiograph, January 29, 2022TECHNIQUEAx[address] CT images of the chest were obtained after the administration of IV contrast utilizing a CTA protocol. 3D MIPS were performed and reviewed for further evaluation.Radiation dose: 710.20 mGy-cm total DLPFINDINGSNo significant pericardial effusion.No mediastinal or hilar lymphadenopathy.Aorta is normal in caliber without dissection.Pulmonary arteries are normal in caliber without filling defects to suggest a pulmonary embolus.Airways are widely patent.Thyroid appears normal.No pleural effusion.No focal infiltrate.No pneumothorax.No concerning lung parenchymal lesion identified.Left adrenal myelolipoma; without significant change in size or appearance.Tiny calcified gallstones in the dependent portion of the gallbladder with no imaging findings of acute cholecystitis.No acute osseous abnormality.Multilevel moderate degenerative disc disease without vertebral body height loss.IMPRESSION1. No acute intrathoracic abnormality, specifically, no pulmonary embolus identified.2. Left adrenal myelolipoma; without significant change in size or appearance.3. Cholelithiasis with no imaging findings of acute cholecystitis.Electronically signed by: Stanley Mccoy (January 29, 2022 16:11:59)
[2022-01-29 17:04] LABS: BILIRUBIN,URINE NEGATIVE (NEGATIVE); BLOOD/HEMOGLOBIN,URINE NEGATIVE (NEGATIVE); GLUCOSE, URINE NEGATIVE (NEGATIVE); KETONES,URINE NEGATIVE (NEGATIVE); LEUKOCYTE ESTERASE ,URINE NEGATIVE (NEGATIVE); NITRITES,URINE NEGATIVE (NEGATIVE); PROTEIN,URINE NEGATIVE (NEGATIVE); UROBILINOGEN,URINE NORMAL (NORMAL)
[2022-01-29 17:07] LABS: APPEARANCE,URINE CLEAR (CLEAR); COLOR,URINE YELLOW (YELLOW)
[2022-01-29 19:57] VITALS: BMI 40.4
[2022-01-29] MEDS: ASPIRIN EC 81 MG PO SCH (20:33)
[2022-01-29] MEDS: COZAAR PO SCH (20:34)
[2022-01-29] MEDS: DEPAKOTE D.R. TAB PO SCH (20:35)
[2022-01-29] MEDS: LASIX PO SCH (20:35)
[2022-01-29] MEDS: ZOCOR TAB 40 MG PO SCH (20:36)
[2022-01-29] MEDS: PEPCID TAB 40 MG PO SCH (20:36)
[2022-01-30 04:10] LABS: BASOPHILS # (AUTO) 0.1 X10^3/uL (0.0-0.1); BASOPHILS % (AUTO) 1.2 % (0.2-1.0); EOSINOPHILS # (AUTO) 0.3 x10^3/uL (0.0-0.2); EOSINOPHILS % (AUTO) 5.5 % (0.9-2.9); HEMATOCRIT 38.2 % (36.0-47.0); HEMOGLOBIN 12.9 g/dL (12.0-16.0); LYMPHOCYTES # (AUTO) 1.6 X10^3/uL (1.3-2.9); LYMPHOCYTES % (AUTO) 27.9 % (21.0-51.0); MEAN CORPUSCULAR HEMOGLOBIN 30.6 pg (27.0-34.0); MEAN CORPUSCULAR HGB CONC 33.8 g/dL (33.0-35.0); MEAN CORPUSCULAR VOLUME 90.5 fL (80.0-100.0); MONOCYTES # (AUTO) 0.6 x10^3/uL (0.3-0.8); NEUTROPHILS # (AUTO) 3.2 x10^3/uL (2.2-4.8); NEUTROPHILS % (AUTO) 55.4 % (42.0-75.0); RED BLOOD COUNT 4.23 X10^6/uL (3.5-5.4); WHITE BLOOD COUNT 5.9 X10^3/uL (3.6-10.0)
[2022-01-30 04:18] LABS: ALANINE AMINOTRANSFERASE 27 Units/L (12-78); ALBUMIN 3.3 g/dL (3.4-5.0); ALKALINE PHOSPHATASE 84 Units/L (46-116); ASPARTATE AMINO TRANSFERASE 16 Units/L (15-37); BLOOD UREA NITROGEN 18 mg/dL (7-18); CALCIUM 9.1 mg/dL (8.5-10.1); CARBON DIOXIDE 30.5 mmol/L (21-32); CHLORIDE 108 mmol/L (98-107); COR CA(FOR HYPOALB) 9.7 mg/dL (8.5-10.1); COR NA(FOR HYPERGLY) 147 mmol/L (136-145); CREATININE 0.88 mg/dL (0.55-1.02); SODIUM 146 mmol/L (136-145); eGFR NON BLACK RACES > 60 (>60)
--- NOTE | 2022-01-30 06:04 | RAD ---
HISTORYDyspneaSTUDYChest AP [id number] chest x-ray and CTA chestFINDINGSHeart remains enlarged. No congestive heart failure is noted. Aorta is calcified. Rebekah are normal. Lungs are free of acute infiltrates. No pleural effusions are identified. Bony thorax is unremarkable.IMPRESSIONCardiomegaly without congestive heart failureNo infiltratesElectronically signed by: DENISE DAN (January 30, 2022 06:02:28)
[2022-01-30 08:53] LABS: CKMB % 1.7 % (<4); CREATINE KINASE MB 1.1 ng/mL (0-4.0)
[2022-01-30] MEDS: LASIX PO SCH ×2 (10:00→20:44)
[2022-01-30] MEDS: LOVENOX INJ 40 MG SYR SC SCH (10:00)
[2022-01-30] MEDS: ASPIRIN EC 81 MG PO SCH (10:00)
[2022-01-30] MEDS: PROzac PO SCH (10:00)
[2022-01-30] MEDS: PriLOSEC PO SCH (10:00)
[2022-01-30] MEDS: SINGULAIR TAB 10 MG PO SCH (10:00)
[2022-01-30] MEDS: PEPCID TAB 40 MG PO SCH ×2 (10:14→20:44)
[2022-01-30] MEDS: SYNTHROID 50 mcg TAB PO SCH (10:15)
[2022-01-30] MEDS: XANAX PO SCH ×2 (11:40→20:45)
--- NOTE | 2022-01-30 12:15 | DR.H&P ---
H&P - History & Physical for Day of: H&P Date: 01/29/22 - Chief Complaint Chief Complaint: SOB, DIZZINESS, WEAKNESS - History of Present Illness History of Present Illness: IS A 86 YEAR OLD PATIENT OF OURS. PATIENT PRESENTED TO THE ER VIA EMS WITH REPORTS OF SUDDEN ONSET OF INCREASED SHORTNESS OF BREATH, DIZZINESS, AND WEAKNESS. SHE DENIED CHEST PAIN, RECENT ILLNESS, FEVER, CHILLS, DIAPHORESIS, NAUSEA, OR VOMITING. SHE DOES HAVE A CHRONI COUGH. SHE HAS A PMH OF CHF, CAD, ANXIETY, DM II, AND HTN. SHE UTILIZES HOME OXYGEN INTERMITTENTLY FOR CHF. AUSCULTATION OF LUNG PINO REVEALED DIMINISHED LUNG SOUNDS THROUGHOUT. PATIENT DID APPEAR TO BE WINDED WHEN TAKING, HOWEVER, HER OXYGEN SATURATIONS WERE 98-99% ON ROOM AIR. PATIENTS FAMILY MEMBER REPORTS THAT SHE DOES HAVE A HX OF ANXIETY, BUT HAS NOT HAD HER XANAX IN A WHILE. ON ARRIVAL TO THE ER, VITALS WERE 98.6-61-28-99%-183/89. LABS WERE OBTAINED. WBC 5.1, RBC 4.62, HGB 14.2, HCT 41.7, SODIUM 143, POTASSIUM 3.6, CHLORIDE 104, BUN 19, CREATININE 0.99, GLUCOSE 145, CALCIUM 9.8, CREATINE KINASE 60, BNP 76.5, TOTAL PROTEIN 6.0, ALBUMIN 3.3. CARDIAC ENZYMES WERE WITHIN NORMAL LIMITS. URINALYSIS WAS OBTAINED AND IS UNREMARKABLE. COVID-19 NEGATIVE. CHEST XRAY WAS OBTAINED AND REVEALED: No imaging findings of acute cardiopulmonary disease. CHEST CTA WITH CONTRAST WAS OBTAINED AND REVEALED: 1. No acute intrathoracic abnormality, specifically, no pulmonary embolus identified.2. Left adrenal myelolipoma; without significant change in size or appearance. 3. Cholelithiasis with no imaging findings of acute cholecystitis. EKG REVEALED: SINUS BRADYCARDIA WITH HR 53. IN THE ER, SHE WAS GIVEN ATIVAN 1MG IV X 1 DOSE. SHE WAS ADMITTED TO THE HOSPITAL FOR FURTHER EVALUATION AND TREATMENT OF ACUTE DYSPNEA, DIZZINESS, GENERALIZED WEAKNESS. SHE WAS STARTED ON LOVENOX 40MG SC DAILY, XANAX 0.25MG PO BID, AND HER HOME MEDICATIONS OF ASPIRIN, DEPAKOTE, PEPCID, FLUOXETINE, FUROSEMIDE, LEVOTHYROXINE, COZAAR, SINGULAIR, PRILOSEC, AND ZOCOR WERE RESUMED. WE WILL OBTAIN A BRAIN CT WITHOUT CONTRAST AND AN ECHO TODAY. OTHERWISE, WE WILL FOLLOW-UP WITH AM LABS AND CONTINUE TO MONITOR. TIME SPENT ON CLINICAL ASSESSMENT, REVIEWING LABS AND IMAGING, DECISION MAKING, AND DOCUMENTATION G REATER THAN 75 MINUTES. - Past Medical History Past Medical History: Coronary Artery Disease, Hypertension, Diabetes, CHF - Past Surgical History Surgical History: Ortho Surgery - Family History Family Medical History: Cancer - Social History Does patient currently use any type of tobacco product: No Have you used tobacco products in the last 12 months: No Type of Tobacco Use: None Does any household member use tobacco: No Alcohol Use: None Drug Use: None - Medications Home Medications: ibuprofen Allergy (Verified 08/26/19 22:47) CONTINUE taking the following medications furosemide 40 mg PO BID 01/29/22 [History] omeprazole 20 mg PO DAILY 01/29/22 [History] polysaccharide iron complex [Ferrex 150] 150 mg PO DAILY 01/29/22 [History] - Review of Systems Constitutional: Weakness Eyes: No Symptoms Reported ENT: No Symptoms Reported Respiratory: Shortness of Breath Cardiovascular: Light Headedness Gastrointestinal: No Symptoms Reported Genitourinary: No Symptoms Reported Musculoskeletal: No Symptoms Reported Skin: No Symptoms Reported Neurological: Weakness - Physical Exam Vital Signs: Temperature 97.8 F Pulse Rate [Apical] 56 Pulse Rate 59 Respiratory Rate 17 Blood Pressure [Right Arm] 147/63 Blood Pressure [Left Arm] 122/85 Blood Pressure 131/68 O2 Sat by Pulse Oximetry 97 Oriented: Normal, Person, Place Eyes: Normal Ear: Normal Nose: Normal Throat: Normal Respiratory: Diminished Throughout Cardiovascular: Normal : Normal Auscultation: Bowel Sounds: Normal Palpation: Normal Tenderness: Normal Skin: Normal Musculoskeletal: Normal Psychiatric: Normal Mood Description: Calm Affect: Normal Speech Pattern: Clear - Assessment/Plan (1) Acute dyspnea Status: Acute Plan: ADMIT, SUPPLEMENTLAL OXYGEN, LOVENOX 40MG SC DAILY, XANAX 0.25MG PO BID, AND HER HOME MEDICATIONS OF ASPIRIN, DEPAKOTE, PEPCID, FLUOXETINE, FUROSEMIDE, LEVOTHYROXINE, COZAAR, SINGULAIR, PRILOSEC, AND ZOCOR WERE RESUMED. OBTAIN ECHO (2) Dizziness Status: Acute Plan: OBTAIN BRAIN CT (3) Weakness Status: Acute (4) Atrial fibrillation Qualifiers: Atrial fibrillation type: unspecified Qualified Code(s): I48.91 - Unspecified atrial fibrillation Status: Chronic (5) Hypertension Qualifiers: Hypertension type: primary hypertension Qualified Code(s): I10 - Essential (primary) hypertension Status: Chronic (6) CHF (congestive heart failure) Qualifiers: Heart failure type: unspecified Heart failure chronicity: chronic Qualified Code(s): I50.9 - Heart failure, unspecified Status: Chronic - Allergies Allergies/Adverse Reactions: Allergies Allergy/AdvReac Type Severity Reaction Status Date / Time ibuprofen Allergy Verified 08/26/19 22:47
--- NOTE | 2022-01-30 12:21 | CT ---
HISTORYDIZZINESS, WEAKNESSSTUDYBRAIN W/O CONCOMPARISONNone availableTECHNIQUEAxial images through the head were performed without intravenous contrast.. CT scan was performed following ALARA (As low as Reasonably Achievable).Coronal and Sagittal reformatted images were performed.FINDINGSThe ventricles are normal in size and symmetric. There is no evidence of acute hemorrhage, mass effect or edema, no intra or extra-axial fluid collection, no hyperdense vessel. There is mild periventricular hypo attenuations.No sellar masses. The mastoid cells and included paranasal sinuses are clear. No evidence of acute fracturesThe cervicocranial junction is unremarkable, no nasopharyngeal masses.IMPRESSIONNo acute intracranial abnormalities. Mild central and peripheral volume loss.Electronically signed by: Katalina Tatum (January 30, 2022 12:20:11)
[2022-01-30] MEDS ORDERED: NORCO 10/325 TAB PO PRN (16:08)
[2022-01-30] MEDS: COZAAR PO SCH (20:42)
[2022-01-30] MEDS: DEPAKOTE D.R. TAB PO SCH (20:43)
[2022-01-30] MEDS: ZOCOR TAB 40 MG PO SCH (20:51)
[2022-01-31 04:19] LABS: BASOPHILS # (AUTO) 0.1 X10^3/uL (0.0-0.1); BASOPHILS % (AUTO) 1.4 % (0.2-1.0); EOSINOPHILS # (AUTO) 0.3 x10^3/uL (0.0-0.2); HEMATOCRIT 36.9 % (36.0-47.0); HEMOGLOBIN 12.6 g/dL (12.0-16.0); LYMPHOCYTES # (AUTO) 1.9 X10^3/uL (1.3-2.9); LYMPHOCYTES % (AUTO) 30.5 % (21.0-51.0); MEAN CORPUSCULAR HEMOGLOBIN 30.8 pg (27.0-34.0); MEAN CORPUSCULAR HGB CONC 34.1 g/dL (33.0-35.0); MEAN CORPUSCULAR VOLUME 90.2 fL (80.0-100.0); MEAN PLATELET VOLUME 8.9 fL (7.4-11.0); MONOCYTES # (AUTO) 0.6 x10^3/uL (0.3-0.8); MONOCYTES % (AUTO) 9.8 % (0.0-13.0); NEUTROPHILS # (AUTO) 3.3 x10^3/uL (2.2-4.8); NEUTROPHILS % (AUTO) 53.3 % (42.0-75.0); RED BLOOD COUNT 4.09 X10^6/uL (3.5-5.4); RED CELL DISTRIBUTION WIDTH 14.6 % (11.6-16.5); WHITE BLOOD COUNT 6.1 X10^3/uL (3.6-10.0)
[2022-01-31 04:27] LABS: ALANINE AMINOTRANSFERASE 22 Units/L (12-78); ALBUMIN 3.2 g/dL (3.4-5.0); ALKALINE PHOSPHATASE 76 Units/L (46-116); ASPARTATE AMINO TRANSFERASE 13 Units/L (15-37); BLOOD UREA NITROGEN 20 mg/dL (7-18); CALCIUM 8.9 mg/dL (8.5-10.1); CARBON DIOXIDE 31.6 mmol/L (21-32); CHLORIDE 108 mmol/L (98-107); COR CA(FOR HYPOALB) 9.5 mg/dL (8.5-10.1); COR NA(FOR HYPERGLY) 145 mmol/L (136-145); CREATININE 0.89 mg/dL (0.55-1.02); SODIUM 145 mmol/L (136-145); eGFR NON BLACK RACES > 60 (>60)
[2022-01-31] MEDS: ASPIRIN EC 81 MG PO SCH (08:34)
[2022-01-31] MEDS: LASIX PO SCH (08:34)
[2022-01-31] MEDS: PriLOSEC PO SCH (08:35)
[2022-01-31] MEDS: PROzac PO SCH (08:35)
[2022-01-31] MEDS: SYNTHROID 50 mcg TAB PO SCH (08:35)
[2022-01-31] MEDS: SINGULAIR TAB 10 MG PO SCH (08:35)
[2022-01-31] MEDS: PEPCID TAB 40 MG PO SCH (08:35)
[2022-01-31] MEDS: XANAX PO SCH (08:36)
[2022-01-31] MEDS: LOVENOX INJ 40 MG SYR SC SCH (09:05)
[2022-01-31 09:13] VITALS: BP 136/60
== END 2022-01-31 12:00 | disposition home health service (06) ==
LOC: ER 14:07 → MED/SURG 14:07 → ICU 18:59
PROVIDERS: ADMIT Internal Medicine; ATTEND Internal Medicine
DX: R26.89 Other abnormalities of gait and mobility; R53.1 Weakness; R06.09 Other forms of dyspnea; Z99.81 Dependence on supplemental oxygen; I48.91 Unspecified atrial fibrillation; R42 Dizziness and giddiness; F41.9 Anxiety disorder, unspecified; R00.1 Bradycardia, unspecified; I11.0 Hypertensive heart disease with heart failure; F03.90 Unspecified dementia, unspecified severity, without behavioral disturbance, psychotic disturbance, mood disturbance, and anxiety; E11.9 Type 2 diabetes mellitus without complications; Z20.822 Contact with and (suspected) exposure to COVID-19; I50.9 Heart failure, unspecified; I25.10 Atherosclerotic heart disease of native coronary artery without angina pectoris; D17.79 Benign lipomatous neoplasm of other sites; K80.80 Other cholelithiasis without obstruction

== ENCOUNTER 2024-05-10 18:12 | Observation (INO) ==
--- NOTE | 2024-05-10 18:23 | DR.AMS ---
HPI Time Seen Time Seen by Provider: 05/10/24 18:22 PMH PMH Past Medical History: CHF, Coronary Artery Disease, Diabetes and Hypertension Past Surgical History: Yes Surgical History: Joint Replacement and Thyroidectomy Family History Family Medical History: Hypertension Social History Do you use any recreational Drugs:: No PE Vitals Vital Signs: Pulse Resp BP Pulse Ox O2 Del Method 05/10/24 23:00 73 23 99/59 97 05/10/24 22:31 77 20 90/54 95 05/10/24 22:00 77 22 107/57 99 05/10/24 21:31 83 20 05/10/24 21:31 109/62 05/10/24 21:30 81 31 H 05/10/24 21:15 77 19 05/10/24 21:01 128/88 05/10/24 21:01 82 28 H 05/10/24 21:00 76 34 H 05/10/24 20:45 75 36 H 05/10/24 20:30 78 34 H 05/10/24 20:15 77 34 H 83 L 05/10/24 20:00 80 39 H 90 L 05/10/24 19:45 80 28 H 97 05/10/24 19:31 150/105 05/10/24 19:31 82 40 H 95 05/10/24 19:30 83 35 H 96 05/10/24 19:15 77 24 97 05/10/24 19:02 73 24 100 05/10/24 19:01 135/77 05/10/24 18:59 79 22 100 05/10/24 18:55 83 33 H 94 L 05/10/24 18:31 78 40 H 100 05/10/24 18:30 118/65 05/10/24 18:29 76 31 H 100 05/10/24 18:24 80 25 H 100 05/10/24 18:22 76 24 125/63 100 Nasal Cannula ROR Labs Reviewed 05/10/24 19:07 05/10/24 19:07 Laboratory: WBC 8.5 X10^3/uL (3.6-10.0) 05/10/24 19:07 RBC 4.76 X10^6/uL (3.5-5.4) 05/10/24 19:07 Hgb 15.0 g/dL (12.0-16.0) 05/10/24 19:07 Hct 45.4 % (36.0-47.0) 05/10/24 19:07 MCV 95.5 fL (80.0-100.0) 05/10/24 19:07 MCH 31.5 pg (27.0-34.0) 05/10/24 19:07 MCHC 33.0 g/dL (33.0-35.0) 05/10/24 19:07 RDW 16.2 % (11.6-16.5) 05/10/24 19:07 Plt Count 207 X10^3/uL (150.0-450.0) 05/10/24 19:07 MPV 9.9 fL (7.4-11.0) 05/10/24 19:07 Neut % (Auto) 49.2 % (42.0-75.0) 05/10/24 19:07 Lymph % (Auto) 34.3 % (21.0-51.0) 05/10/24 19:07 Hamilton % (Auto) 12.7 % (0.0-13.0) 05/10/24 19:07 Eos % (Auto) 2.3 % (0.9-2.9) 05/10/24 19:07 Baso % (Auto) 1.5 % (0.2-1.0) H 05/10/24 19:07 Neut # (Auto) 4.2 x10^3/uL (2.2-4.8) 05/10/24 19:07 Lymph # (Auto) 2.9 X10^3/uL (1.3-2.9) 05/10/24 19:07 Hamilton # (Auto) 1.1 x10^3/uL (0.3-0.8) H 05/10/24 19:07 Eos # (Auto) 0.2 x10^3/uL (0.0-0.2) 05/10/24 19:07 Baso # (Auto) 0.1 X10^3/uL (0.0-0.1) 05/10/24 19:07 Absolute Nucleated RBC 0.1 /100WBC 05/10/24 19:07 Sodium 142 mmol/L (136-145) 05/10/24 19:07 Corrected Sodium TNP 05/10/24 19:07 Potassium 6.5 mmol/L (3.5-5.1) H* 05/10/24 19:07 Chloride 108 mmol/L (98-107) H 05/10/24 19:07 Carbon Dioxide 29.4 mmol/L (21-32) 05/10/24 19:07 BUN 30 mg/dL (7-18) H 05/10/24 19:07 Creatinine 1.55 mg/dL (0.55-1.02) H 05/10/24 19:07 Est GFR (MDRD) Af Amer 41 (>60) L 05/10/24 19:07 Est GFR (MDRD) Non-Af 34 (>60) L 05/10/24 19:07 Glucose 105 mg/dL (65-99) H 05/10/24 19:07 Calcium 10.8 mg/dL (8.5-10.1) H 05/10/24 19:07 Corrected Calcium 11.5 mg/dL (8.5-10.1) H 05/10/24 19:07 Total Bilirubin 0.40 mg/dL (0.2-1.0) 05/10/24 19:07 AST 60 Units/L (15-37) H 05/10/24 19:07 ALT 76 Units/L (12-78) 05/10/24 19:07 Alkaline Phosphatase 110 Units/L (46-116) 05/10/24 19:07 Creatine Kinase 31 Units/L (26-192) 05/10/24 19:07 Troponin I High Sens 45.7 ng/L (4.0-60.0) 05/10/24 19:07 Total Protein 6.9 g/dL (6.4-8.2) 05/10/24 19:07 Albumin 3.1 g/dL (3.4-5.0) L 05/10/24 19:07 Globulin 3.8 g/dL (2.5-4.5) 05/10/24 19:07 Albumin/Globulin Ratio 0.8 Ratio (1.1-2.1) L 05/10/24 19:07 Opioid Opioid Risk Tool Age (John box if 16-45): No History of Preadolescent Sexual Abuse: No Total: 0 Total Score Risk Category: Low Risk Copyright: Aldrich LR predicting aberrant behaviors Discharge Plan Discharge Plan Patient Disposition: HOME, SELF-CARE Condition: Stable Orders to Discharge Patient Discharge Orders: Transfer (Routine); Ordered 05/11/24 Ordered By: ROME STEWART
--- NOTE | 2024-05-10 18:34 | EKG ---
Test Reason : UNRESPONSIVE Blood Pressure : */* mmHG Vent. Rate : 79 BPM Atrial Rate : * BPM P-R Int : * ms QRS Dur : 98 ms QT Int : 302 ms P-R-T Axes : * -9 182 degrees QTc Int : 346 ms Atrial fibrillation Abnormal ECG When compared with ECG of 28-APR-2024 18:17, Atrial fibrillation has replaced Sinus rhythm Minimal criteria for Septal infarct are no longer present Borderline criteria for Lateral infarct are no longer present T wave inversion more evident in Anterior leads Confirmed by Jere Lilly MD ([id number]) on 05/11/2024 7:34:57 AM Referred By: Confirmed By: Jere Lilly MD
--- NOTE | 2024-05-10 19:09 | CT ---
EXAMINATION: BRAIN W/O CON HISTORY: senior care staff called and states that jacinto has been A/O but she is no longer alert. not respon ding to physical touch. Patient arrived via stretcher and she grimaces to sternum rub, but does not f ollow directions. ; COMPARISON: CT brain 04/17/2024 TECHNIQUE: Contiguous noncontrast axial CT images of the brain. Images are reviewed in the axial imaging plane with reformatted sagittal and coronal images.The above CT scan was done with automated exposure contr ol and the mA and kV was adjusted to obtain quality images according to patient size. FINDINGS: No evidence of acute intracranial hemorrhage, mass effect, or midline shift. Mild diffuse brain pare nchyma atrophy. Generalized decreased density to the deep white matter adjacent to the lateral ventr icles and centrum semiovale regions bilaterally without associated mass effect. Consider chronic isc hemic white matter changes from small vessel disease or other cause of gliosis. Ventricles normal si ze and shape. Calvarium appears intact. Arterial vascular calcifications base of the brain. IMPRESSION: Chronic appearing changes of the brain. THIS IS AN ELECTRONICALLY VERIFIED FINAL REPORT 05/10/2024 7:06 PM - Electronically signed by Jayashree Massey MD
[2024-05-10 19:13] LABS: BASOPHILS # (AUTO) 0.1 X10^3/uL (0.0-0.1); EOSINOPHILS # (AUTO) 0.2 x10^3/uL (0.0-0.2)
[2024-05-10 19:19] LABS: MEAN PLATELET VOLUME 9.9 fL (7.4-11.0)
[2024-05-10 19:23] LABS: BASOPHILS % (AUTO) 1.5 % (0.2-1.0); EOSINOPHILS % (AUTO) 2.3 % (0.9-2.9); HEMATOCRIT 45.4 % (36.0-47.0); LYMPHOCYTES # (AUTO) 2.9 X10^3/uL (1.3-2.9); LYMPHOCYTES % (AUTO) 34.3 % (21.0-51.0); MEAN CORPUSCULAR HEMOGLOBIN 31.5 pg (27.0-34.0); MEAN CORPUSCULAR VOLUME 95.5 fL (80.0-100.0); MONOCYTES # (AUTO) 1.1 x10^3/uL (0.3-0.8); MONOCYTES % (AUTO) 12.7 % (0.0-13.0); NEUTROPHILS # (AUTO) 4.2 x10^3/uL (2.2-4.8); NEUTROPHILS % (AUTO) 49.2 % (42.0-75.0); PLATELET COUNT 207 X10^3/uL (150.0-450.0); RED BLOOD COUNT 4.76 X10^6/uL (3.5-5.4); RED CELL DISTRIBUTION WIDTH 16.2 % (11.6-16.5); WHITE BLOOD COUNT 8.5 X10^3/uL (3.6-10.0)
[2024-05-10 19:29] LABS: ALANINE AMINOTRANSFERASE 76 Units/L (12-78); ALBUMIN 3.1 g/dL (3.4-5.0); ALKALINE PHOSPHATASE 110 Units/L (46-116); ASPARTATE AMINO TRANSFERASE 60 Units/L (15-37); BLOOD UREA NITROGEN 30 mg/dL (7-18); CALCIUM 10.8 mg/dL (8.5-10.1); CARBON DIOXIDE 29.4 mmol/L (21-32); CHLORIDE 108 mmol/L (98-107); COR CA(FOR HYPOALB) 11.5 mg/dL (8.5-10.1); CREATINE KINASE 31 Units/L (26-192); CREATININE 1.55 mg/dL (0.55-1.02); GLUCOSE 105 mg/dL (65-99); SODIUM 142 mmol/L (136-145); TOTAL PROTEIN 6.9 g/dL (6.4-8.2); eGFR NON BLACK RACES 34 (>60)
[2024-05-10 19:31] LABS: POTASSIUM 6.5 mmol/L (3.5-5.1)
--- NOTE | 2024-05-10 20:15 | RAD ---
EXAM:CHEST, 1 VIEWHISTORY:[facility] staff called and states that jacinto has been A/O but she is no longer alert. not responding to physical touch. Patient arrived via stretcher and she grimaces to sternum rub, but does not follow directions. ;COMPARISON:04/28/2024TECHNIQUE:Single frontal chest radiographFINDINGS:Patient slightly rotated exaggerating appearance but cardiac prominence is present. No pneumothorax or pleural effusion. No definite infiltrate opacity.IMPRESSION:No definite acute chest findings when accounting for rotation.THIS IS AN ELECTRONICALLY VERIFIED FINAL REPORT05/10/2024 8:11 PM - Electronically signed by Richard Awan MD
[2024-05-10] MEDS: CALCIUM CHLORIDE INJ IV ONE (21:52)
[2024-05-10] MEDS: NovoLIN R (or HumuLIN R) IV ONE (22:16)
[2024-05-10] MEDS: D50W ABBOJECT SYR IV ONE (22:16)
[2024-05-10] MEDS: CALCIUM GLUCONATE 10% 1 G in NS 100 ML IV 100 ML IV ONE (22:16)
[2024-05-10] MEDS: SODIUM BICARBONATE 8.4% INJ ADULT IVP ONE (22:17)
[2024-05-11] MEDS: NS 100 ML IV 100 ML ONE (01:06)
[2024-05-11 01:23] LABS: BLOOD UREA NITROGEN 27 mg/dL (7-18); CALCIUM 10.9 mg/dL (8.5-10.1); CARBON DIOXIDE 32.4 mmol/L (21-32); CHLORIDE 109 mmol/L (98-107); CREATININE 1.37 mg/dL (0.55-1.02); GLUCOSE 73 mg/dL (65-99); POTASSIUM 5.5 mmol/L (3.5-5.1); SODIUM 144 mmol/L (136-145); eGFR NON BLACK RACES 39 (>60)
[2024-05-11 01:52] VITALS: BMI 38.9
[2024-05-11] MEDS ORDERED: XOPENEX 1.25 MG/3 ML NEBULE NEB PRN (02:06)
[2024-05-11] MEDS: NS 1,000 ML IV 1,000 ML IV SCH (02:37)
[2024-05-11 05:12] LABS: BASOPHILS # (AUTO) 0.3 X10^3/uL (0.0-0.1); BASOPHILS % (AUTO) 4.2 % (0.2-1.0); EOSINOPHILS # (AUTO) 0.1 x10^3/uL (0.0-0.2); EOSINOPHILS % (AUTO) 1.6 % (0.9-2.9); HEMATOCRIT 43.2 % (36.0-47.0); HEMOGLOBIN 14.3 g/dL (12.0-16.0); LYMPHOCYTES # (AUTO) 2.2 X10^3/uL (1.3-2.9); LYMPHOCYTES % (AUTO) 28.2 % (21.0-51.0); MEAN CORPUSCULAR HEMOGLOBIN 31.1 pg (27.0-34.0); MONOCYTES # (AUTO) 0.8 x10^3/uL (0.3-0.8); MONOCYTES % (AUTO) 10.8 % (0.0-13.0); NEUTROPHILS # (AUTO) 4.3 x10^3/uL (2.2-4.8); NEUTROPHILS % (AUTO) 55.2 % (42.0-75.0); PLATELET COUNT 185 X10^3/uL (150.0-450.0); RED BLOOD COUNT 4.59 X10^6/uL (3.5-5.4); RED CELL DISTRIBUTION WIDTH 16.7 % (11.6-16.5); WHITE BLOOD COUNT 7.7 X10^3/uL (3.6-10.0)
[2024-05-11 05:35] LABS: ALANINE AMINOTRANSFERASE 63 Units/L (12-78); ALBUMIN 2.9 g/dL (3.4-5.0); ALKALINE PHOSPHATASE 96 Units/L (46-116); ASPARTATE AMINO TRANSFERASE 48 Units/L (15-37); BLOOD UREA NITROGEN 27 mg/dL (7-18); CALCIUM 10.9 mg/dL (8.5-10.1); CARBON DIOXIDE 27.5 mmol/L (21-32); CHLORIDE 108 mmol/L (98-107); COR CA(FOR HYPOALB) 11.8 mg/dL (8.5-10.1); CREATINE KINASE 32 Units/L (26-192); CREATININE 1.22 mg/dL (0.55-1.02); GLUCOSE 74 mg/dL (65-99); MAGNESIUM 1.6 mg/dL (2.0-2.9); POTASSIUM 5.3 mmol/L (3.5-5.1); SODIUM 144 mmol/L (136-145); TOTAL PROTEIN 6.3 g/dL (6.4-8.2); eGFR NON BLACK RACES 44 (>60)
--- NOTE | 2024-05-11 05:39 | EKG ---
Test Reason : ELEVATED POTASSIUM, AFIB Blood Pressure : */* mmHG Vent. Rate : 87 BPM Atrial Rate : * BPM P-R Int : * ms QRS Dur : 96 ms QT Int : 316 ms P-R-T Axes : * 1 187 degrees QTc Int : 380 ms Atrial fibrillation Posterior infarct , age undetermined Abnormal ECG When compared with ECG of 10-MAY-2024 18:31, (Unconfirmed) T wave inversion more evident in Anterolateral leads Confirmed by Jere Lilly MD ([id number]) on 05/11/2024 7:33:47 AM Referred By: Confirmed By: Jere Lilly MD
[2024-05-11] MEDS: MAG-OX TAB PO SCH (10:00)
[2024-05-11 12:12] VITALS: BP 128/63; PULSE 96; RESP 18; TEMP 97.2; O2SAT 97
[2024-05-11] MEDS ORDERED: SNACK - Diabetic Appropriate PO SCH (20:00)
--- NOTE | 2024-05-13 16:37 | DR.SSS ---
SHORT STAY SUMMARY Admission Date Date of Admission: 05/10/24 Discharge Date Discharge Date: 05/11/24 Admission Diagnoses Admission Diagnoses: Hyperkalemia Lethargy Generalized weakness Discharge Diagnoses Discharge Diagnoses: Hyperkalemia Generalized weakness Atrial fibrillation Diabetes Chief Complaint Chief Complaint: Lethargy, decreased responsiveness History of Present Illness History of Present Illness: Ms. Banegas is a 88-year-old female with multiple comorbidities who is a resident of [facility] presented with lethargy and decreased responsiveness. She was brought to the ER for further workup. Labs showed hyperkalemia at 6.5. She was treated with D50 plus insulin, calcium gluconate and sodium bicarb. She was put on telemetry and admitted for further evaluation. Past Medical History Past Medical History: CHF, Coronary Artery Disease, Diabetes and Hypertension Past Surgical History Surgical History: Joint Replacement and Thyroidectomy Allergies Allergies Allergy/AdvReac Type Severity Reaction Status Date / Time ibuprofen Allergy Verified 05/10/24 18:30 pregabalin [From Lyrica] Allergy Verified 05/10/24 18:30 Medications Home Medications: ibuprofen Allergy (Verified 05/10/24 18:30) pregabalin [From Lyrica] Allergy (Verified 05/10/24 18:30) CONTINUE taking the following medications B [id number] 106 mg iron-1 mg tablet (Ferrocite Plus) 1 tab PO QDAY 05/10/24 [History] levothyroxine 75 mcg tablet (Synthroid) 75 mcg PO QDAY 05/10/24 [History] Family History Family Medical History: Hypertension Social History Alcohol Use: None Drug Use: None Review of Systems Constitutional: Weakness Eyes: No Symptoms Reported ENT: No Symptoms Reported Respiratory: No Symptoms Reported Cardiovascular: No Symptoms Reported Gastrointestinal: No Symptoms Reported Genitourinary: No Symptoms Reported Musculoskeletal: No Symptoms Reported Skin: No Symptoms Reported Neurological: Weakness and Confusion Physical Exam Vital Signs: Last Vital Signs Temp 97.9 F 05/11/24 04:00 Pulse 95 H 05/11/24 08:00 Resp 21 05/11/24 08:00 BP 131/87 05/11/24 08:00 Pulse Ox 99 05/11/24 08:00 O2 Del Method Nasal Cannula 05/11/24 08:00 O2 Flow Rate 2 05/11/24 08:00 FiO2 28 05/11/24 07:43 Oriented: Normal Eyes: Normal Nose: Normal Throat: Normal Respiratory: Diminished Throughout Cardiovascular: Normal Auscultation: Bowel Sounds: Normal Palpation: Normal Tenderness: Normal Skin: Decreased Turgur Musculoskeletal: Normal Psychiatric: Normal Mood Description: Calm Affect: Normal Speech Pattern: Clear and Appropriate Labs Labs: Laboratory Last Values WBC 7.7 X10^3/uL (3.6-10.0) 05/11/24 04:46 RBC 4.59 X10^6/uL (3.5-5.4) 05/11/24 04:46 Hgb 14.3 g/dL (12.0-16.0) 05/11/24 04:46 Hct 43.2 % (36.0-47.0) 05/11/24 04:46 MCV 94.0 fL (80.0-100.0) 05/11/24 04:46 MCH 31.1 pg (27.0-34.0) 05/11/24 04:46 MCHC 33.0 g/dL (33.0-35.0) 05/11/24 04:46 RDW 16.7 % (11.6-16.5) H 05/11/24 04:46 Plt Count 185 X10^3/uL (150.0-450.0) 05/11/24 04:46 MPV 10.0 fL (7.4-11.0) 05/11/24 04:46 Neut % (Auto) 55.2 % (42.0-75.0) 05/11/24 04:46 Lymph % (Auto) 28.2 % (21.0-51.0) 05/11/24 04:46 O'Brien % (Auto) 10.8 % (0.0-13.0) 05/11/24 04:46 Eos % (Auto) 1.6 % (0.9-2.9) 05/11/24 04:46 Baso % (Auto) 4.2 % (0.2-1.0) H 05/11/24 04:46 Neut # (Auto) 4.3 x10^3/uL (2.2-4.8) 05/11/24 04:46 Lymph # (Auto) 2.2 X10^3/uL (1.3-2.9) 05/11/24 04:46 O'Brien # (Auto) 0.8 x10^3/uL (0.3-0.8) 05/11/24 04:46 Eos # (Auto) 0.1 x10^3/uL (0.0-0.2) 05/11/24 04:46 Baso # (Auto) 0.3 X10^3/uL (0.0-0.1) H 05/11/24 04:46 Absolute Nucleated RBC 0.1 /100WBC 05/11/24 04:46 PT 19.5 SECONDS (11.8-14.3) 05/11/24 04:46 INR Target Range - 05/11/24 04:46 INR 1.70 (0.8-1.3) H 05/11/24 04:46 APTT 37.1 SECONDS (22.9-36.5) H 05/11/24 04:46 PTT Comment - 05/11/24 04:46 Sodium 144 mmol/L (136-145) 05/11/24 04:46 Corrected Sodium TNP 05/11/24 04:46 Potassium 5.3 mmol/L (3.5-5.1) H 05/11/24 04:46 Chloride 108 mmol/L (98-107) H 05/11/24 04:46 Carbon Dioxide 27.5 mmol/L (21-32) 05/11/24 04:46 BUN 27 mg/dL (7-18) H 05/11/24 04:46 Creatinine 1.22 mg/dL (0.55-1.02) H 05/11/24 04:46 Est GFR (MDRD) Af Amer 54 (>60) L 05/11/24 04:46 Est GFR (MDRD) Non-Af 44 (>60) L 05/11/24 04:46 Glucose 74 mg/dL (65-99) 05/11/24 04:46 Calcium 10.9 mg/dL (8.5-10.1) H 05/11/24 04:46 Corrected Calcium 11.8 mg/dL (8.5-10.1) H 05/11/24 04:46 Magnesium 1.6 mg/dL (2.0-2.9) L 05/11/24 04:46 Total Bilirubin 0.50 mg/dL (0.2-1.0) 05/11/24 04:46 AST 48 Units/L (15-37) H 05/11/24 04:46 ALT 63 Units/L (12-78) 05/11/24 04:46 Alkaline Phosphatase 96 Units/L (46-116) 05/11/24 04:46 Creatine Kinase 32 Units/L (26-192) 05/11/24 04:46 Troponin I High Sens 43.3 ng/L (4.0-60.0) 05/11/24 04:46 Troponin I High Sens Cancelled 05/11/24 04:46 Total Protein 6.3 g/dL (6.4-8.2) L 05/11/24 04:46 Albumin 2.9 g/dL (3.4-5.0) L 05/11/24 04:46 Globulin 3.4 g/dL (2.5-4.5) 05/11/24 04:46 Albumin/Globulin Ratio 0.9 Ratio (1.1-2.1) L 05/11/24 04:46 Digoxin 1.13 ng/mL (0.9-2) 05/11/24 04:46 Discharge Medications Discharge Medications: Home Medication List B [id number] 106 mg iron-1 mg tablet (Ferrocite Plus) 1 tab PO QDAY 05/10/24 [History] levothyroxine 75 mcg tablet (Synthroid) 75 mcg PO QDAY 05/10/24 [History] Prescriptions: Discharge Disposition Discharge Disposition: Patient's labs were monitored daily. Her potassium improved to 4.9. She was back to her baseline mentation and doing well. Patient was stable to be discharged back to [facility]. Patient's home medication included potassium and spironolactone which were held. She will need a repeat BMP the next day. She does see cardiology. Discharge Plan Discharge Plan Patient Disposition: 03 [facility] Condition: Stable Health Concerns: Post Hospitalization: new medications and changes needed to prevent readmission or further decline. Pt educated and given instructions on all concerns. Care Plan Goals: Problem: Pain/Alteration in Comfort Goal: Improve/ Resolve Pain; Achieve Pain Tolerance Instructions: Take pain medications as prescribed. Contact your primary care provider if your pain is unrelieved or worsens. Follow up with primary care provider as directed. Plan of Treatment: Continue with present treatment and follow up plan. Pt is to keep follow up appointment as instructed and take medications as ordered. Prescription drug monitoring program results: PDMP reviewed and no concerns identified Prescriptions: Continued divalproex 250 mg tablet,delayed release (DR/EC) 250 mg PO QHS aspirin [Ecotrin Low Strength] 81 mg Tablet,Delayed Release (Dr/Ec) 81 mg PO QDAY Qty: 30 3RF levothyroxine [Synthroid] 75 mcg Tablet 75 mcg PO QDAY Ferrocite Plus 106 mg iron- 1 mg Tablet 1 tab PO QDAY amiodarone 200 mg tablet 200 mg PO QDAY famotidine 40 mg tablet 40 mg PO BID hydrocodone-acetaminophen 10-325 mg tablet 1 tab PO TID PRN glipizide 2.5 mg tablet extended release 24hr 2.5 mg PO QDAY pantoprazole 40 mg tablet,delayed release (DR/EC) 40 mg PO BID Novolin R Regular U100 Insulin 100 unit/mL Solution 1 sliding scale dose SUBCUT USEASDIRECTD metoprolol tartrate 50 mg tablet 50 mg PO BID megestrol 40 mg tablet 40 mg PO BID montelukast 10 mg tablet 10 mg PO QDAY digoxin 125 mcg (0.125 mg) tablet 125 mcg PO QDAY Rx Instructions: on HOLD 05/06-05/11 ergocalciferol (vitamin D2) [Vitamin D2] 1,250 mcg (50,000 unit) capsule 50,000 unit PO QWEEK Rx Instructions: Give one capsule by mouth one time a week every Friday levalbuterol HCl 1.25 mg/3 mL solution for nebulization 1.25 mg inhalation Q4H PRN meclizine 25 mg tablet,chewable 25 mg PO DAILY PRN rosuvastatin 20 mg tablet 20 mg PO QPM memantine 5 mg tablet 5 mg PO BID Eliquis 5 mg tablet 5 mg PO BID magnesium oxide 400 mg magnesium Tablet 400 mg PO BID fluconazole [Diflucan] 100 mg Tablet 100 mg PO QDAY Qty: 4 0RF furosemide 20 mg tablet 10 mg PO BID Qty: 0 0RF Discontinued spironolactone 25 mg tablet 25 mg PO QDAY potassium chloride 20 mEq tablet,ER particles/crystals 40 meq PO DAILY Orders to Discharge Patient Discharge Orders: Discharge (Routine); Ordered 05/11/24 Ordered By: Annmarie Lyon Follow ups/Referrals Follow ups/Referrals: Rex Davis [Primary Care Provider] - 3 days Instructions Activity Restrictions/Additional Instructions: Repeat BMP on 05/12/24. Hold Spironolactone until potassium is below 4.5. Stand Alone Forms: Post Hospital Follow Up Care
== END 2024-05-11 12:12 ==
LOC: U 18:12 → ER 18:12 → U 05-11 01:00 → OBS 05-11 10:33
PROVIDERS: ADMIT Internal Medicine; ATTEND Internal Medicine
DX: R94.31 Abnormal electrocardiogram [ECG] [EKG]; I25.10 Atherosclerotic heart disease of native coronary artery without angina pectoris; L89.152 Pressure ulcer of sacral region, stage 2; R79.1 Abnormal coagulation profile; E87.5 Hyperkalemia; E11.65 Type 2 diabetes mellitus with hyperglycemia; R55 Syncope and collapse; R40.4 Transient alteration of awareness; I10 Essential (primary) hypertension; R53.1 Weakness; I48.91 Unspecified atrial fibrillation; E83.42 Hypomagnesemia

== ENCOUNTER 2025-05-06 16:38 | Observation (INO) ==
--- NOTE | 2025-05-06 16:49 | EKG ---
Test Reason : CP, SOB Blood Pressure : */* mmHG Vent. Rate : 86 BPM Atrial Rate : 86 BPM P-R Int : 192 ms QRS Dur : 146 ms QT Int : 406 ms P-R-T Axes : 80 -36 116 degrees QTc Int : 485 ms Normal sinus rhythm with PACs Left axis deviation Left bundle branch block Abnormal ECG When compared with ECG of 01-JUL-2024 14:39, Vent. rate has increased BY 29 BPM Left bundle branch block is now present PACs are new Confirmed by Jere Lilly MD ([id number]) on 05/07/2025 8:46:23 AM Referred By: Confirmed By: Jere Lilly MD
[2025-05-06 16:59] LABS: ABG ALLEN TEST POS; ABG BASE EXCESS 6.6 mmol/L (-2.0-2.0); ABG HCO3 33.5 mmol/L (22-26); ABG OXYGEN SATURATION 85.0 % (90-100); ABG PCO2 58.0 mmHg (35.0-45.0); ABG PH 7.370 (7.35-7.45); ABG PO2 51.0 mmHg (80.0-100.0)
[2025-05-06] MEDS: APRESOLINE INJ 20 MG VIAL IVP ONE (17:01)
[2025-05-06 17:08] LABS: MEAN PLATELET VOLUME 9.1 fL (7.4-11.0); RED CELL DISTRIBUTION WIDTH 16.3 % (11.6-16.5)
[2025-05-06 17:13] LABS: INR 1.21 (0.8-1.3)
--- NOTE | 2025-05-06 17:17 | DR.SOBA ---
HPI Time Seen Time Seen by Provider: 05/06/25 17:16 Primary Care Physician Primary Care Physician: Ryan Complaints Chief Complaint Doctors Comments: Patient arrived from the senior living with complaints of chest pain shortness of breath diaphoretic and she right with the elevated blood pressure here. Chief Complaint:: senior living staff called and states that patient is c/o chest pain, cool, and diaphoretic. patient states that she is having tightness in her chest and shortnes of breath. on arrival she has O2 at 2L Nc in place with O2 sat is 93%, she was then placed on 4L NC per respiratory and O2 sat increased to 96%. Self Treatment fo Chief Complaint: per DC staff: when she assessed patient she noted 89% on 2L NC, breathing treatment was given O2 sat increased to 96%. BP 226/110 HR 83 26 respirations. BS 159. she is a patient of Dr. Davis and a DNR Source History Provided: Patient and [place] Mode of Arrival Mode of Arrival: Stretcher Timing Onset of Chief Complaint: 05/06/25 PMH PMH Past Medical History: Yes Past Medical History: CHF, Coronary Artery Disease, Diabetes, Hypertension and Renal Disease Past Surgical History: Yes Surgical History: Joint Replacement and Thyroidectomy Family History History of Family Medical Conditions: Yes Family Medical History: Hypertension Social History Alcohol Use: None Do you use any recreational Drugs:: No Lives Where: [place] Infectious screening Have you traveled outside the country in the last 6 months?: No Isolation: Standard ROS Review of Systems Constitutional: Other (sob,hypoxia) Eyes: No Symptoms Reported ENTM: No Symptoms Reported Respiratoy: Short of Breath Cardiovascular: No Symptoms Reported Gastrointestinal/Abdominal: No Symptoms Reported Genitourinary: No Symptoms Reported Neurological: No Symptoms Reported Musculoskeletal: No Symptoms Reported Integumentary: No Symptoms Reported Hematologic/Lymphatic: No Symptoms Reported Endocrine: No Symptoms Reported Psychiatric: Depression All Other Systems: Reviewed and Negative PE Vital Signs Vitals: Vital Signs Temperature 97.6 F Pulse Rate 73 Pulse Rate 75 Pulse Rate 73 Pulse Rate 74 Pulse Rate 72 Pulse Rate 77 Pulse Rate 79 Pulse Rate 73 Pulse Rate 79 Pulse Rate 75 Pulse Rate 78 Pulse Rate 76 Pulse Rate 74 Pulse Rate 74 Pulse Rate 73 Pulse Rate 74 Pulse Rate 74 Pulse Rate 74 Pulse Rate 72 Pulse Rate 73 Pulse Rate 74 Pulse Rate 73 Pulse Rate 74 Pulse Rate 75 Pulse Rate 73 Pulse Rate 74 Pulse Rate 74 Pulse Rate 74 Pulse Rate 74 Pulse Rate 75 Pulse Rate 77 Pulse Rate 84 Pulse Rate 74 Pulse Rate 75 Pulse Rate 76 Pulse Rate 75 Pulse Rate 75 Pulse Rate 78 Pulse Rate 82 Pulse Rate 86 Pulse Rate 75 Pulse Rate 76 Pulse Rate 76 Pulse Rate 76 Pulse Rate 77 Pulse Rate 79 Pulse Rate 80 Pulse Rate 78 Pulse Rate 78 Pulse Rate 79 Pulse Rate 77 Pulse Rate 76 Pulse Rate 74 Pulse Rate 72 Pulse Rate 74 Pulse Rate 80 Pulse Rate 73 Pulse Rate 73 Pulse Rate 74 Pulse Rate 80 Pulse Rate 80 Pulse Rate 80 Respiratory Rate 36 Respiratory Rate 44 Respiratory Rate 38 Respiratory Rate 32 Respiratory Rate 37 Respiratory Rate 40 Respiratory Rate 42 Respiratory Rate 32 Respiratory Rate 41 Respiratory Rate 34 Respiratory Rate 33 Respiratory Rate 31 Respiratory Rate 38 Respiratory Rate 35 Respiratory Rate 38 Respiratory Rate 37 Respiratory Rate 34 Respiratory Rate 29 Respiratory Rate 33 Respiratory Rate 36 Respiratory Rate 34 Respiratory Rate 38 Respiratory Rate 36 Respiratory Rate 28 Respiratory Rate 34 Respiratory Rate 29 Respiratory Rate 37 Respiratory Rate 36 Respiratory Rate 34 Respiratory Rate 37 Respiratory Rate 37 Respiratory Rate 30 Respiratory Rate 37 Respiratory Rate 43 Respiratory Rate 39 Respiratory Rate 39 Respiratory Rate 39 Respiratory Rate 41 Respiratory Rate 37 Respiratory Rate 42 Respiratory Rate 51 Respiratory Rate 36 Respiratory Rate 41 Respiratory Rate 45 Respiratory Rate 65 Respiratory Rate 44 Respiratory Rate 52 Respiratory Rate 48 Respiratory Rate 53 Respiratory Rate 38 Respiratory Rate 43 Respiratory Rate 62 Respiratory Rate 34 Respiratory Rate 38 Respiratory Rate 39 Respiratory Rate 33 Respiratory Rate 37 Respiratory Rate 35 Respiratory Rate 42 Respiratory Rate 49 Respiratory Rate 47 Blood Pressure 134/63 Blood Pressure 141/64 Blood Pressure 149/66 Blood Pressure 150/69 Blood Pressure 141/60 Blood Pressure 156/74 Blood Pressure 151/71 Blood Pressure 154/71 Blood Pressure 156/72 Blood Pressure 166/76 Blood Pressure 151/69 Blood Pressure 155/71 Blood Pressure 151/70 Blood Pressure 134/60 Blood Pressure 151/73 Blood Pressure 151/73 Blood Pressure 149/71 Blood Pressure 139/66 Blood Pressure 137/62 Blood Pressure 143/65 Blood Pressure 148/60 Blood Pressure 152/70 Blood Pressure 151/69 Blood Pressure 140/59 Blood Pressure 150/70 Blood Pressure 149/68 Blood Pressure 141/63 Blood Pressure 142/58 Blood Pressure 147/67 Blood Pressure 129/61 Blood Pressure 144/67 Blood Pressure 142/60 Blood Pressure 151/70 Blood Pressure 140/64 Blood Pressure 139/61 Blood Pressure 146/60 Blood Pressure 164/74 Blood Pressure 166/79 Blood Pressure 113/56 Blood Pressure 137/63 Blood Pressure 139/63 Blood Pressure 145/65 Blood Pressure 144/65 Blood Pressure 151/70 Blood Pressure 154/73 Blood Pressure 155/70 Blood Pressure 158/68 Blood Pressure 160/76 Blood Pressure 145/67 Blood Pressure 154/71 Blood Pressure 149/69 Blood Pressure 156/74 Blood Pressure 177/86 Blood Pressure 229/114 Blood Pressure 189/87 Blood Pressure 206/100 Blood Pressure 204/99 Blood Pressure 229/114 O2 Sat by Pulse Oximetry 97 O2 Sat by Pulse Oximetry 97 O2 Sat by Pulse Oximetry 97 O2 Sat by Pulse Oximetry 96 O2 Sat by Pulse Oximetry 96 O2 Sat by Pulse Oximetry 97 O2 Sat by Pulse Oximetry 97 O2 Sat by Pulse Oximetry 100 O2 Sat by Pulse Oximetry 97 O2 Sat by Pulse Oximetry 96 O2 Sat by Pulse Oximetry 96 O2 Sat by Pulse Oximetry 95 O2 Sat by Pulse Oximetry 96 O2 Sat by Pulse Oximetry 94 O2 Sat by Pulse Oximetry 95 O2 Sat by Pulse Oximetry 94 O2 Sat by Pulse Oximetry 96 O2 Sat by Pulse Oximetry 98 O2 Sat by Pulse Oximetry 98 O2 Sat by Pulse Oximetry 95 O2 Sat by Pulse Oximetry 95 O2 Sat by Pulse Oximetry 96 O2 Sat by Pulse Oximetry 88 O2 Sat by Pulse Oximetry 88 O2 Sat by Pulse Oximetry 95 O2 Sat by Pulse Oximetry 95 O2 Sat by Pulse Oximetry 95 O2 Sat by Pulse Oximetry 95 O2 Sat by Pulse Oximetry 95 O2 Sat by Pulse Oximetry 94 O2 Sat by Pulse Oximetry 94 O2 Sat by Pulse Oximetry 95 O2 Sat by Pulse Oximetry 91 O2 Sat by Pulse Oximetry 95 O2 Sat by Pulse Oximetry 93 O2 Sat by Pulse Oximetry 93 O2 Sat by Pulse Oximetry 95 O2 Sat by Pulse Oximetry 95 O2 Sat by Pulse Oximetry 97 O2 Sat by Pulse Oximetry 96 O2 Sat by Pulse Oximetry 96 O2 Sat by Pulse Oximetry 96 O2 Sat by Pulse Oximetry 96 O2 Sat by Pulse Oximetry 97 O2 Sat by Pulse Oximetry 96 O2 Sat by Pulse Oximetry 96 O2 Sat by Pulse Oximetry 97 O2 Sat by Pulse Oximetry 97 O2 Sat by Pulse Oximetry 98 O2 Sat by Pulse Oximetry 97 O2 Sat by Pulse Oximetry 97 O2 Sat by Pulse Oximetry 98 O2 Sat by Pulse Oximetry 98 O2 Sat by Pulse Oximetry 97 O2 Sat by Pulse Oximetry 98 O2 Sat by Pulse Oximetry 96 O2 Sat by Pulse Oximetry 98 O2 Sat by Pulse Oximetry 99 O2 Sat by Pulse Oximetry 99 O2 Sat by Pulse Oximetry 95 O2 Sat by Pulse Oximetry 94 O2 Sat by Pulse Oximetry 94 General Limitations: Physical Limitation (bed bound) General Appearance: In Distress (moderate distresss) Head Head Exam: Normal Inspection, Atraumatic and Normocephalic Eyes Eye exam: Normal Appearance ENT ENT Exam: Normal Exam Neck Neck Exam: Normal Inspection Chest Chest Inspection: Normal Inspection Respiratory Respiratory Exam: Other (wheezing,rhonchi) Cardiovascular Cardiovascular Exam: Regular Rate Abdominal Exam Abdominal Exam: Normal Inspection Extremities Extremities Exam: Normal Inspection Back Back Exam: Normal Inspection Neurologic Neurological Exam: Alert Psychiatric Psychiatric Exam: Depressed Skin Skin Exam: Warm, Dry and Intact MDM Differential Diagnosis Differential Diagnosis: CHF, COPD, Hypertensive Emergency, Pneumonia and Respiratory Insufficiency COURSE Treatment Treatment: This patient was hypoxic here in the ER she is normally on oxygen at the senior living on 2 L/min minute for COPD. The patient at her initial ABG done here when she got here her this was done on room air the pH was 7.37 pCO2 was 58 PaO2 was 51 HCO3 was 32 O2 sat was 85% on room air. Patient blood pressure was like 220/110 she was given hydralazine 20 mg IV and her blood pressure came down to about 150/90. This patient had a chest x-ray done that did not show an infiltrate cardiac enzymes opponent was 15.7 proBNP was only 199 and magnesium level was 2.2 patient did have a glucose of 186. This patient was given and placed on oxygen at 2 L/min and she did have another repeat ABG done after she was on that for 30 minutes and her ABG showed pH of 7.39 pCO2 of 56 which was decreased a little bit pO2 was 67 which was increased from 4.51 bicarbonate was 33.9 which was increased from 32 and her O2 sat was 93% on 2 L. Patient was given a DuoNeb and Solu-Medrol 125 mg IV. Presented this patient to Dr. Mcneill at 2130 and he stated he would step the patient for further treatment for COPD exacerbation and hypoxia. The patient is relatively was told of plan to refer to observation in the hospital was agreeable to the observation. [facility]OR Labs Reviewed Laboratory Results Reviewed?: Yes 05/06/25 16:57 05/06/25 16:57 Laboratory: WBC 10.4 X10^3/uL (3.6-10.0) H 05/06/25 16:57 RBC 4.96 X10^6/uL (3.5-5.4) 05/06/25 16:57 Hgb 15.2 g/dL (12.0-16.0) 05/06/25 16:57 Hct 46.8 % (36.0-47.0) 05/06/25 16:57 MCV 94.4 fL (80.0-100.0) 05/06/25 16:57 MCH 30.6 pg (27.0-34.0) 05/06/25 16:57 MCHC 32.5 g/dL (33.0-35.0) L 05/06/25 16:57 RDW 16.3 % (11.6-16.5) 05/06/25 16:57 Plt Count 181 X10^3/uL (150.0-450.0) 05/06/25 16:57 MPV 9.1 fL (7.4-11.0) 05/06/25 16:57 Neut % (Auto) 57.4 % (42.0-75.0) 05/06/25 16:57 Lymph % (Auto) 26.2 % (21.0-51.0) 05/06/25 16:57 [place] % (Auto) 6.4 % (0.0-13.0) 05/06/25 16:57 Eos % (Auto) 9.6 % (0.9-2.9) H 05/06/25 16:57 Baso % (Auto) 0.4 % (0.2-1.0) 05/06/25 16:57 Neut # (Auto) 6.0 x10^3/uL (2.2-4.8) H 05/06/25 16:57 Lymph # (Auto) 2.7 X10^3/uL (1.3-2.9) 05/06/25 16:57 [place] # (Auto) 0.7 x10^3/uL (0.3-0.8) 05/06/25 16:57 Eos # (Auto) 1.0 x10^3/uL (0.0-0.2) H 05/06/25 16:57 Baso # (Auto) 0.0 X10^3/uL (0.0-0.1) 05/06/25 16:57 Absolute Nucleated RBC 0.1 /100WBC 05/06/25 16:57 PT 15.5 SECONDS (11.8-14.3) 05/06/25 16:57 INR Target Range - 05/06/25 16:57 INR 1.21 (0.8-1.3) 05/06/25 16:57 APTT 35.6 SECONDS (22.9-36.5) 05/06/25 16:57 PTT Comment - 05/06/25 16:57 Sample Site Rr 05/06/25 20:54 ABG pH 7.390 (7.35-7.45) 05/06/25 20:54 ABG pCO2 56.0 mmHg (35.0-45.0) H* 05/06/25 20:54 ABG pO2 67.0 mmHg (80.0-100.0) L 05/06/25 20:54 ABG HCO3 33.9 mmol/L (22-26) H* 05/06/25 20:54 ABG O2 Saturation 93.0 % (90-100) 05/06/25 20:54 ABG Base Excess 7.3 mmol/L (-2.0-2.0) H 05/06/25 20:54 Dennis Test Pos 05/06/25 20:54 A-a Gradient 63.0 mmHg 05/06/25 20:54 FiO2 28.0 05/06/25 20:54 Blood Gas Comments Mirtha well ae 05/06/25 20:54 Sodium 145 mmol/L (136-145) 05/06/25 16:57 Corrected Sodium 147 mmol/L (136-145) H 05/06/25 16:57 Potassium 4.5 mmol/L (3.5-5.1) 05/06/25 16:57 Chloride 106 mmol/L (98-107) 05/06/25 16:57 Carbon Dioxide 35.2 mmol/L (21-32) H 05/06/25 16:57 BUN 22 mg/dL (7-18) H 05/06/25 16:57 Creatinine 0.64 mg/dL (0.55-1.02) 05/06/25 16:57 Est GFR (MDRD) Af Amer > 60 (>60) 05/06/25 16:57 Est GFR (MDRD) Non-Af > 60 (>60) 05/06/25 16:57 Glucose 186 mg/dL (65-99) H 05/06/25 16:57 Calcium 10.2 mg/dL (8.5-10.1) H 05/06/25 16:57 Corrected Calcium TNP 05/06/25 16:57 Magnesium 2.2 mg/dL (2.0-2.9) 05/06/25 16:57 Total Bilirubin 0.30 mg/dL (0.2-1.0) 05/06/25 16:57 AST 24 Units/L (15-37) 05/06/25 16:57 ALT 34 Units/L (12-78) 05/06/25 16:57 Alkaline Phosphatase 130 Units/L (46-116) H 05/06/25 16:57 Creatine Kinase 57 Units/L (26-192) 05/06/25 16:57 Troponin I High Sens 15.7 ng/L (4.0-60.0) 05/06/25 16:57 B-Natriuretic Peptide 199 pg/mL (0-79) H 05/06/25 16:57 Total Protein 8.3 g/dL (6.4-8.2) H 05/06/25 16:57 Albumin 4.0 g/dL (3.4-5.0) 05/06/25 16:57 Globulin 4.3 g/dL (2.5-4.5) 05/06/25 16:57 Albumin/Globulin Ratio 0.9 Ratio (1.1-2.1) L 05/06/25 16:57 Opioid Opioid Risk Tool Age (John box if 16-45): No History of Preadolescent Sexual Abuse: No Total: 0 Total Score Risk Category: Low Risk Copyright: Valdemar MOTTA predicting aberrant behaviors Discharge Plan Diagnosis Discharge Problem: Acute exacerbation of chronic obstructive pulmonary disease, Hypoxia Discharge Plan Patient Disposition: 09 ADMITTED INPATIENT Condition: Stable Prescriptions: No Action aspirin [Ecotrin Low Strength] 81 mg Tablet,Delayed Release (Dr/Ec) 81 mg PO QDAY Qty: 30 3RF Ferrocite Plus 106 mg iron- 1 mg Tablet 1 tab PO QDAY famotidine 40 mg tablet 40 mg PO BID hydrocodone-acetaminophen 10-325 mg tablet 1 tab PO TID PRN glipizide 2.5 mg tablet extended release 24hr 2.5 mg PO QDAY pantoprazole 40 mg tablet,delayed release (DR/EC) 40 mg PO BID Novolin R Regular U100 Insulin 100 unit/mL Solution 1 sliding scale dose SUBCUT USEASDIRECTD montelukast 10 mg tablet 10 mg PO QDAY ergocalciferol (vitamin D2) [Vitamin D2] 1,250 mcg (50,000 unit) capsule 50,000 unit PO QWEEK Rx Instructions: Give one capsule by mouth one time a week every Friday meclizine 25 mg tablet,chewable 25 mg PO DAILY PRN rosuvastatin 20 mg tablet 20 mg PO QPM memantine 5 mg tablet 5 mg PO BID Eliquis 5 mg tablet 5 mg PO BID magnesium oxide 400 mg magnesium Tablet 400 mg PO BID potassium chloride 20 mEq tablet,ER particles/crystals 20 meq PO DAILY amiodarone 200 mg tablet 200 mg PO QDAY levothyroxine 100 mcg tablet 100 mcg PO QDAY divalproex [Depakote] 125 mg Tablet,Delayed Release (Dr/Ec) 125 mg PO QPM nystatin 100,000 unit/gram Powder 1 applic TOPICAL BID fluticasone propionate [Flonase] 50 mcg/actuation [place],Suspension 1 spray INTRANASAL QDAY Rx Instructions: administer into each nostril loratadine [Claritin] 10 mg Tablet 10 mg PO QDAY Glucerna Liquid 1 ea PO DAILY metoprolol tartrate 25 mg Tablet 12.5 mg PO BID Health Concerns: Post Hospitalization: new medications and changes needed to prevent readmission or further decline. Pt educated and given instructions on all concerns. Plan of Treatment: Continue with present treatment and follow up plan. Pt is to keep follow up appointment as instructed and take medications as ordered. Orders to Discharge Patient Discharge Orders: Transfer (Routine); Ordered 05/06/25 Ordered By: Satish Vallejo Follow ups/Referrals Follow ups/Referrals: Rex Davis [Primary Care Provider, MEDICAL] - 3 days Instructions Stand Alone Forms: Find Help Web Site, Post Hospital Follow Up Care Print Language: MALDIVIAN
[2025-05-06 17:20] LABS: COR NA(FOR HYPERGLY) 147 mmol/L (136-145); CREATININE 0.64 mg/dL (0.55-1.02); eGFR NON BLACK RACES > 60 (>60)
--- NOTE | 2025-05-06 18:50 | RAD ---
EXAMINATION: CHEST, 1 VIEW HISTORY: SHORTNESS OF BREATH; . COMPARISON STUDY: Chest x-ray 02/07/2025 TECHNIQUE: Single frontal view of the chest FINDINGS: Lungs are expanded. Mild cardiac silhouette enlargement. Normal pulmonary vascular pattern. CP angles are sharp. Bones are intact. IMPRESSION: Mild cardiac silhouette enlargement. THIS IS AN ELECTRONICALLY VERIFIED FINAL REPORT 05/06/2025 6:47 PM - Electronically signed by Jayashree Massey MD
[2025-05-06] MEDS ORDERED: DUONEB 0.5 MG/3 MG (3 mL) NEB ONE (20:54)
[2025-05-06 20:59] LABS: ABG BASE EXCESS 7.3 mmol/L (-2.0-2.0); ABG OXYGEN SATURATION 93.0 % (90-100); ABG PH 7.390 (7.35-7.45); ABG PO2 67.0 mmHg (80.0-100.0)
[2025-05-06 21:00] LABS: ABG ALLEN TEST POS; ABG HCO3 33.9 mmol/L (22-26); ABG PCO2 56.0 mmHg (35.0-45.0)
[2025-05-06] MEDS: DUONEB 0.5 MG/3 MG (3 mL) NEB ONE (21:07)
[2025-05-07] MEDS ORDERED: DUONEB 0.5 MG/3 MG (3 mL) NEB SCH
[2025-05-07] MEDS ORDERED: XOPENEX 1.25 MG/3 ML NEBULE NEB SCH
[2025-05-07] MEDS: XOPENEX 1.25 MG/3 ML NEBULE NEB SCH (00:13)
[2025-05-07] MEDS: NovoLIN R (or HumuLIN R) SUBCUT SCH (00:18)
[2025-05-07 01:18] VITALS: BMI 36.1
[2025-05-07] MEDS ORDERED: PHARMACY CONSULT LTC MEDICATIONS XX SCH (02:00)
[2025-05-07 06:23] LABS: MEAN PLATELET VOLUME 9.5 fL (7.4-11.0); RED CELL DISTRIBUTION WIDTH 16.2 % (11.6-16.5)
[2025-05-07 06:36] LABS: COR NA(FOR HYPERGLY) 148 mmol/L (136-145); CREATININE 0.64 mg/dL (0.55-1.02); eGFR NON BLACK RACES > 60 (>60)
[2025-05-07] MEDS ORDERED: PULMICORT NEB TX 0.5 MG NEB ONE (07:49)
[2025-05-07] MEDS: PULMICORT NEB TX 0.5 MG NEB SCH (08:32)
[2025-05-07] MEDS ORDERED: PULMICORT NEB TX 0.5 MG NEB SCH (09:00)
[2025-05-07] MEDS: K-DUR TAB 20 MEQ PO SCH (09:02)
[2025-05-07] MEDS: ASPIRIN EC 81 MG PO SCH (09:02)
[2025-05-07] MEDS: CLARITIN PO SCH (09:02)
[2025-05-07] MEDS: NAMENDA TAB 10 MG PO SCH (09:03)
[2025-05-07] MEDS: PEPCID TAB 40 MG PO SCH (09:03)
[2025-05-07] MEDS: GLUCOTROL XL 24-HR PO SCH (09:03)
[2025-05-07] MEDS: ELIQUIS PO SCH (09:03)
[2025-05-07] MEDS: SINGULAIR TAB 10 MG PO SCH (09:03)
[2025-05-07] MEDS: FLONASE NASAL SPRAY ENOSTRIL SCH (09:04)
[2025-05-07] MEDS: PROTONIX TAB 40 MG PO SCH (09:04)
[2025-05-07] MEDS: LOPRESSOR TAB 25 MG PO SCH (09:04)
[2025-05-07] MEDS: PATIENT'S HOME MEDICATION (Nut.Tx.Gluc.Intol,Lac-Free,Soy [Glucerna] Liquid) PO SCH (09:04)
[2025-05-07] MEDS: MAG-OX TAB PO SCH (09:04)
[2025-05-07] MEDS: HEMOCYTE PLUS PO SCH (09:05)
[2025-05-07] MEDS: CORDARONE TAB 200 MG PO SCH (09:05)
--- NOTE | 2025-05-07 13:09 | DR.H&P ---
H&P History & Physical for Day of: H&P Date: 05/06/25 Chief Complaint Chief Complaint: CHEST PRESSURE AND SOB History of Present Illness History of Present Illness: PT IS 89 WF, RESIDENT OF [facility], ER ADMISSION AFTER PRESENTING WITH CO CHEST TIGHTNESS AND INCREASED SOB. PT HAS PMH OF CAD, CHF AND HTN. PT REPORTS SHE HAD SOME MILD COUGHING THE PAST FEW DAYS, DENIES ANY FEVER OR GI SYMPTOMS. PT WAS HYPOXIC ON ARRIVAL WITH DIFFUSE WHEEZING AND ADMITTED FOR TREATMENT AND EVALUATION OF ACUTE ILLNESS. Past Medical History Past Medical History: CHF, Coronary Artery Disease, Diabetes, Hypertension and Renal Disease Past Surgical History Surgical History: Thyroidectomy Family History Family Medical History: Hypertension Social History Alcohol Use: None Drug Use: None Medications Home Medications: Home Medications Medication Instructions Recorded Confirmed Type apixaban 5 mg tablet (Eliquis) 5 mg PO BID 04/28/24 History ergocalciferol (vitamin D2) 1,250 50,000 unit PO QWEEK 04/28/24 05/07/25 History mcg (50,000 unit) capsule (Vitamin D2) famotidine 40 mg tablet 40 mg PO BID 04/28/24 History glipizide 2.5 mg tablet, extended 2.5 mg PO QDAY 04/2805/07/25 History release 24 hr hydrocodone 10 mg-acetaminophen 1 tab PO TID PRN 04/2805/07/25 History 325 mg tablet insulin regular human 100 unit/mL 1 sliding scale dose subcut 04/28/24 05/07/25 History injection solution (Novolin R USEASDIRECTD Regular U-100 Insulin) magnesium oxide 400 mg PO BID 04/28/2405/07 History meclizine 25 mg chewable tablet 25 mg PO DAILY PRN Diz ziness 04/28/24 05/07/25 History memantine 5 mg tablet 5 mg PO BID 04/28/24 5 History montelukast 10 mg tablet 10 mg PO QDAY 04/28/2405/07 History pantoprazole 40 mg tablet,delayed 40 mg PO BID 4 05/07/25 History release rosuvastatin 20 mg tablet 20 mg PO QPM 04/28/24 History B [id number] 106 mg 1 tab PO QDAY 05/10/24 History iron-1 mg tablet (Ferrocite Plus) potassium chloride 20 mEq 20 meq PO DAILY 07/01/24 History tablet,extended release(part/cryst) amiodarone 200 mg tablet 200 mg PO QDAY 05/06/2504/22 History divalproex 125 mg tablet,delayed 125 mg PO QPM 05/07/25 History release (Depakote) fluticasone propionate 50 1 spray intranasal QDAY 04/2205/07/25 History mcg/actuation nasal spray,suspension levothyroxine 100 mcg tablet 100 mcg PO QDAY 05/06/25 05/07/25 History loratadine 10 mg tablet (Claritin) 10 mg PO QDAY 05/0605/07/25 History metoprolol tartrate 25 mg tablet 12.5 mg PO BID 05/07/25 History nut.tx.gluc.intol,lac-free,soy 1 ea PO BID 05/06/25 History (Glucerna oral liquid) nystatin 100,000 unit/gram topical 1 applic topical BI D 05/06/25 05/07/25 History powder Allergies Allergies Allergy/AdvReac Type Severity Reaction Status Date / Time ibuprofen Allergy Verified 05/06/25 17:22 pregabalin (From Lyrica) Allergy Verified 05/06/25 17:22 Labs 05/07/25 05:15 05/07/25 05:15 Labs: Laboratory WBC 5.4 X10^3/uL (3.6-10.0) 05/07/25 05:15 RBC 4.69 X10^6/uL (3.5-5.4) 05/07/25 05:15 Hgb 14.5 g/dL (12.0-16.0) 05/07/25 05:15 Hct 43.8 % (36.0-47.0) 05/07/25 05:15 MCV 93.4 fL (80.0-100.0) 05/07/25 05:15 MCH 30.8 pg (27.0-34.0) 05/07/25 05:15 MCHC 33.0 g/dL (33.0-35.0) 05/07/25 05:15 RDW 16.2 % (11.6-16.5) 05/07/25 05:15 Plt Count 174 X10^3/uL (150.0-450.0) 05/07/25 05:15 MPV 9.5 fL (7.4-11.0) 05/07/25 05:15 Neut % (Auto) 87.2 % (42.0-75.0) H 05/07/25 05:15 Lymph % (Auto) 10.8 % (21.0-51.0) L 05/07/25 05:15 [place]yer % (Auto) 1.0 % (0.0-13.0) 05/07/25 05:15 Eos % (Auto) 0.3 % (0.9-2.9) L 05/07/25 05:15 Baso % (Auto) 0.7 % (0.2-1.0) 05/07/25 05:15 Neut # (Auto) 4.7 x10^3/uL (2.2-4.8) 05/07/25 05:15 Lymph # (Auto) 0.6 X10^3/uL (1.3-2.9) L 05/07/25 05:15 [place] # (Auto) 0.1 x10^3/uL (0.3-0.8) L 05/07/25 05:15 Eos # (Auto) 0.0 x10^3/uL (0.0-0.2) 05/07/25 05:15 Baso # (Auto) 0.0 X10^3/uL (0.0-0.1) 05/07/25 05:15 Absolute Nucleated RBC 0.1 /100WBC 05/07/25 05:15 PT 15.5 SECONDS (11.8-14.3) 05/06/25 16:57 INR Target Range - 05/06/25 16:57 INR 1.21 (0.8-1.3) 05/06/25 16:57 APTT 35.6 SECONDS (22.9-36.5) 05/06/25 16:57 PTT Comment - 05/06/25 16:57 Sample Site Rr 05/06/25 20:54 ABG pH 7.390 (7.35-7.45) 05/06/25 20:54 ABG pCO2 56.0 mmHg (35.0-45.0) H* 05/06/25 20:54 ABG pO2 67.0 mmHg (80.0-100.0) L 05/06/25 20:54 ABG HCO3 33.9 mmol/L (22-26) H* 05/06/25 20:54 ABG O2 Saturation 93.0 % (90-100) 05/06/25 20:54 ABG Base Excess 7.3 mmol/L (-2.0-2.0) H 05/06/25 20:54 Dennis Test Pos 05/06/25 20:54 A-a Gradient 63.0 mmHg 05/06/25 20:54 FiO2 28.0 05/06/25 20:54 Blood Gas Comments Mirtha well ae 05/06/25 20:54 Sodium 146 mmol/L (136-145) H 05/07/25 05:15 Corrected Sodium 148 mmol/L (136-145) H 05/07/25 05:15 Potassium 4.4 mmol/L (3.5-5.1) 05/07/25 05:15 Chloride 104 mmol/L (98-107) 05/07/25 05:15 Carbon Dioxide 36.0 mmol/L (21-32) H 05/07/25 05:15 BUN 21 mg/dL (7-18) H 05/07/25 05:15 Creatinine 0.64 mg/dL (0.55-1.02) 05/07/25 05:15 Est GFR (MDRD) Af Amer > 60 (>60) 05/07/25 05:15 Est GFR (MDRD) Non-Af > 60 (>60) 05/07/25 05:15 Glucose 201 mg/dL (65-99) H 05/07/25 05:15 POC Glucose (mg/dL) 192 mg/dL (65-99) H 05/07/25 11:31 Calcium 10.2 mg/dL (8.5-10.1) H 05/07/25 05:15 Corrected Calcium TNP 05/07/25 05:15 Magnesium 2.2 mg/dL (2.0-2.9) 05/06/25 16:57 Total Bilirubin 0.30 mg/dL (0.2-1.0) 05/07/25 05:15 AST 22 Units/L (15-37) 05/07/25 05:15 ALT 31 Units/L (12-78) 05/07/25 05:15 Alkaline Phosphatase 119 Units/L (46-116) H 05/07/25 05:15 Creatine Kinase 57 Units/L (26-192) 05/06/25 16:57 Troponin I High Sens 15.7 ng/L (4.0-60.0) 05/06/25 16:57 B-Natriuretic Peptide 199 pg/mL (0-79) H 05/06/25 16:57 Total Protein 7.7 g/dL (6.4-8.2) 05/07/25 05:15 Albumin 3.6 g/dL (3.4-5.0) 05/07/25 05:15 Globulin 4.1 g/dL (2.5-4.5) 05/07/25 05:15 Albumin/Globulin Ratio 0.9 Ratio (1.1-2.1) L 05/07/25 05:15 Review of Systems Constitutional: Weakness Eyes: No Symptoms Reported ENT: No Symptoms Reported Respiratory: Cough, Shortness of Breath and Wheezing Cardiovascular: Chest Pain Gastrointestinal: Vomiting ("SPITTING UP COLD") Genitourinary: No Symptoms Reported Musculoskeletal: No Symptoms Reported Skin: No Symptoms Reported Neurological: No Symptoms Reported Physical Exam Vital Signs: Vital Signs Temperature 98.1 F Pulse Rate [Apical] 76 Pulse Rate 72 Pulse Rate 88 Respiratory Rate 16 Blood Pressure [Right Arm] 168/70 O2 Sat by Pulse Oximetry 93 O2 Sat by Pulse Oximetry 94 O2 Sat by Pulse Oximetry 96 Oriented: Normal Eyes: Normal Ear: Normal Nose: Discharge Throat: Dry Respiratory: Wheezes Throughout Cardiovascular: Normal; negative Edema Palpation: Normal Tenderness: Normal Skin: Decreased Turgur Musculoskeletal: Motor Deficit Psychiatric: Normal Mood Description: Calm Speech Pattern: Clear and Appropriate Assessment/Plan (1) Acute exacerbation of chronic obstructive pulmonary disease: Status: Acute Plan: ADMIT, IV ATBS, ABG ON ADMISSION SUPPLEMENTAL O2, RESP THERAPY CE AND EKG MONITORING REPEAT AM CXR, VERIFY HOME MEDICATION AND RESUME BP CONTROL, AND BS CONTROL (2) CHF (congestive heart failure): Qualifiers: Heart failure type: unspecified Heart failure chronicity: chronic Q ualified Code(s): I50.9 - Heart failure, unspecified Status: Chronic (3) Hypoxia: Status: Acute (4) Dehydration: Status: Acute (5) Type 2 diabetes mellitus: Status: Acute (6) Hypothyroidism: Status: Acute
[2025-05-07] MEDS ORDERED: ROBITUSSIN DM PO PRN (16:22)
[2025-05-07] MEDS: SNACK - Diabetic Appropriate PO SCH (20:48)
[2025-05-07] MEDS ORDERED: DIVALPROEX 125 MG PO SCH (21:00)
[2025-05-07] MEDS: DEPAKOTE SPRINKLE PO SCH (21:27)
[2025-05-07] MEDS: CRESTOR TAB 10 MG PO SCH (21:27)
[2025-05-08 06:18] LABS: MEAN PLATELET VOLUME 9.9 fL (7.4-11.0); RED CELL DISTRIBUTION WIDTH 16.3 % (11.6-16.5)
[2025-05-08 06:30] LABS: COR NA(FOR HYPERGLY) 147 mmol/L (136-145); CREATININE 0.92 mg/dL (0.55-1.02); eGFR NON BLACK RACES > 60 (>60)
--- NOTE | 2025-05-08 11:00 | RAD ---
EXAM: CHEST, 1 VIEW HISTORY: SOB, CHF, COPD; COMPARISON: 05/06/2025 TECHNIQUE: AP portable FINDINGS: Prominent cardiac silhouette, accentuated by AP technique. Pulmonary vascular engorgement. Increased hazy perihilar and left basilar opacities. No large pleural effusion or visible pneumothorax. IMPRESSION: Pulmonary vascular engorgement with increased perihilar and left basilar opacities, suspicious for edema. Superimposed atypical infectious process is difficult to exclude. THIS IS AN ELECTRONICALLY VERIFIED FINAL REPORT 05/08/2025 10:56 AM - Electronically signed by Rakesh Jimenez MD
[2025-05-09 08:04] VITALS: RESP 20
[2025-05-09] MEDS: NORCO 10/325 TAB PO PRN (08:26)
--- NOTE | 2025-05-09 08:35 | RAD ---
EXAM: Portable chest HISTORY: Congestive heart failure COMPARISON: 05/08/2025 FINDINGS: Patient is rotated to the left. Heart is enlarged. Rebekah are normal. Aorta is calcified. Previously present congestive heart failure appears to have resolved. No acute infiltrates or pleural effusions identified. Bony thorax is unremarkable. IMPRESSION: Cardiomegaly without congestive heart failure on today's examination No acute infiltrates THIS IS AN ELECTRONICALLY VERIFIED FINAL REPORT 05/09/2025 8:32 AM - Electronically signed by Zia Benton MD
[2025-05-09 08:46] LABS: MEAN PLATELET VOLUME 8.9 fL (7.4-11.0); RED CELL DISTRIBUTION WIDTH 15.6 % (11.6-16.5)
[2025-05-09 09:14] LABS: COR CA(FOR HYPOALB) 10.2 mg/dL (8.5-10.1); COR NA(FOR HYPERGLY) 147 mmol/L (136-145); CREATININE 0.77 mg/dL (0.55-1.02); eGFR NON BLACK RACES > 60 (>60)
[2025-05-09 12:47] VITALS: BP 145/62; PULSE 51; TEMP 98.2; O2SAT 94
[2025-05-10] MEDS ORDERED: VITAMIN D (1.25MG) PO SCH (09:00)
== END 2025-05-09 13:25 ==
LOC: MED/SURG 16:38 → ER 16:38 → MED/SURG 23:17
PROVIDERS: ADMIT Internal Medicine; ATTEND Internal Medicine
DX: Z79.4 Long term (current) use of insulin; I11.0 Hypertensive heart disease with heart failure; Z66 Do not resuscitate; I48.91 Unspecified atrial fibrillation; R11.10 Vomiting, unspecified; K42.9 Umbilical hernia without obstruction or gangrene; R09.02 Hypoxemia; E03.9 Hypothyroidism, unspecified; I25.10 Atherosclerotic heart disease of native coronary artery without angina pectoris; R26.89 Other abnormalities of gait and mobility; Z79.01 Long term (current) use of anticoagulants; R06.02 Shortness of breath; I50.9 Heart failure, unspecified; R07.89 Other chest pain; J44.1 Chronic obstructive pulmonary disease with (acute) exacerbation; E11.65 Type 2 diabetes mellitus with hyperglycemia; F32.A Depression, unspecified; E87.0 Hyperosmolality and hypernatremia; R94.31 Abnormal electrocardiogram [ECG] [EKG]